=== PATIENT | female | born 1965 | race African-American/Black ===

== ENCOUNTER → 2018-06-10 | Outpatient (CLI) | payer OTHER ==
[2018-01-26 15:00] VITALS: BP 121/53
[~2018-06-10] MED LIST: ACET325T9 PO; ALPR1TAB6 PO; AMIT10TA PO; AMLO5TAB7 PO; APIDRA; ASPI-482 PO; ASPI-630 PO; CALC600T4 PO; CARV25TA2 PO; COCO1000 PO; CRESTOR20 MG PO; CYCL10TA2 PO; DOXY100V4 PO; ESCITALOPRAM OX10 MG PO; FERR325T58 PO; FLEXERIL; FURO-69 PO; FURO80TA72 PO; HYDR-2868 PO; HYDR-2869 PO; INSU100I30 SQ; INSU100V13 SQ; INSU100V31 SQ; INSU100V5 IJ; IRBE300T3 PO; ISOS30TA4 PO; LATA2.5D3 LEFTEYE; LISI-130 PO; LISI-334 PO; LOSA50TA7 PO; MAGN100C3 PO; METF500T16 PO; METO-247 PO; MULT-208 PO; OMEP40CA5 PO; OXYC-327 PO; OXYC5TAB95 PO; PHEN37.53 PO; POTA10TA12 PO; PRAV20TA2 PO; PROAIR HFA8.5 GM IH; SEMA0.25 SQ; SPIR25TA5 PO; TORS20TA2 PO; WARF-31 PO; ZOLP10TA PO
--- NOTE | 2018-06-10 14:26 | KCIC ---
MRI Lumbar Spine without contrast History: Low back pain, degenerative disc disease Technique: Multiplanar, multi sequential noncontrast MR imaging was performed of the lumbar spine. Contrast: None Comparison: None available Findings: Most inferior fully formed intervertebral disc space is considered L5-S1 for this report. There is moderate to severe degenerative disc disease at L5-S1, mild degenerative endplate change. There is mild disc desiccation L4-5. Lumbar vertebral body stature and AP alignment are maintained. Conus terminates at L1. There is very mild lumbar levoscoliosis. L3-L4: Spinal canal and neural foramina are adequate. There is minimal buckling of the ligamentum flavum and prominence of posterior epidural fat. L4-L5: There is mild to moderate facet degenerative change, prominence of posterior epidural fat, mild buckling of the ligamentum flavum. Neural foramina and spinal canal are adequate. L5-S1: There is disc osteophyte complex, superimposed bulge/protrusion more eccentric to left lateral recess. There is contact of the descending left S1 nerve root in the left lateral recess, mild to moderate narrowing of the far left lateral recess. There is minimal facet degenerative change. There is mild narrowing of the left neural foramen, right neural foramen adequate Impression: 1. There is moderate to severe degenerative disc disease at what is considered L5-S1. There is [id number] narrowing of the far left lateral recess at L5-S1, bulge/protrusion contacting the descending left S1 nerve root at this level. There is minimal narrowing of the left L5-S1 neural foramen. Electronically signed by: Fareed Moreno MD (06/10/2018 2:23 PM) [facility]
== END | disposition home or self-care (01) ==
LOC: KCIC MRI 12:29
PROVIDERS: ATTEND Physical Medicine & Rehabilitation
DX: M51.37 Other intervertebral disc degeneration, lumbosacral region (principal); M48.07 Spinal stenosis, lumbosacral region; M25.78 Osteophyte, vertebrae
CPT/HCPCS: 72148

== ENCOUNTER → 2018-06-26 | Outpatient (CLI) | payer OTHER ==
[2018-01-26 15:00] VITALS: BP 121/53
[~2018-06-26] MED LIST changes: +CRESTOR40 MG PO; +ERGO500027 PO
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
== END | disposition home or self-care (01) ==
LOC: PNCL 09:29
PROVIDERS: ATTEND Anesthesiology
DX: M54.5 Low back pain (principal); M19.90 Unspecified osteoarthritis, unspecified site; I10 Essential (primary) hypertension; E11.9 Type 2 diabetes mellitus without complications; E66.9 Obesity, unspecified
CPT/HCPCS: 99214

== ENCOUNTER → 2018-07-12 | Outpatient (CLI) | payer OTHER ==
[2018-01-26 15:00] VITALS: BP 121/53
[~2018-07-12] MED LIST changes: +IOHEXOL 180 MG/ML 10 ML VIAL. ONE; -OXYC-327 PO; +OXYC1TAB19 PO; +OXYC5TAB4 PO; -OXYC5TAB95 PO; +methylPREDNISolone ACETATE 40 MG/ML VIAL. ONE; +methylPREDNISolone ACETATE 80 MG/ML VIAL. ONE
--- NOTE | 2018-07-12 21:31 | PAIN ---
DATE OF SERVICE: 07/12/2018 PROGRESS NOTE FOR PAIN CLINIC DIAGNOSIS: Lumbar radiculopathy with lumbar degenerative disk disease. HISTORY OF PRESENT ILLNESS: The patient is a 52-year-old female who returns for followup status post initial evaluation and preauthorization for lumbar epidural steroid injection. She had obtained this and would like to proceed today. The patient reports still some pain in the low back, left lower extremity as it was previously, posterior gluteus, posterior thigh, posterior calf into the foot with numbness, tingling, burning, tight shooting pain, aching, sharp, radiating, becoming more constant, getting worse at night now with severe burning and spasticity in the legs. It does awaken her from sleep several times at night, the patient reports about every 4 hours or so. The patient reports no new motor or sensory deficits and no new bowel or bladder incontinence. Rates her pain as a 9 on a scale of 10 at its worst, 7 on average and 7 at its least and is a 7 today. PHYSICAL EXAMINATION: VITAL SIGNS: The patient's blood pressure is 209/99, pulse 76, respirations 18 and temperature 97.6 degrees Fahrenheit. Height is 5 feet 7 inches and weighs 259 pounds. GENERAL: The patient is awake, alert, oriented, appropriate and very pleasant demeanor. HEENT: Shows normocephalic and atraumatic. Extraocular movements intact and symmetrical. Oral cavity: Mucous membranes moist and pink. Dentition intact. NECK: Shows anterior throat supple without palpable lymphadenopathy noted. Swallow reflex symmetrical. CHEST: Shows normal with inspection. Breath sounds clear to auscultation bilaterally. HEART: Shows S1 and S2 clear. No murmurs auscultated. ABDOMEN: Soft, obese, nontender and nondistended. No palpable organomegaly is noted. No rebound or guarding demonstrated. BACK: Shows spine grossly in the midline. Slight exaggeration of the thoracic kyphosis and some minor flattening of the lumbar lordotic curvature. Lumbar paraspinous muscle shows symmetrical on inspection, with palpation shows some moderate tenderness diffusely in the low lumbar distribution, more on the left than the right but without significant trigger points or radiation. The patient has good rotational motion of the lumbar spine, both laterally as well as extension and flexion without difficulty. EXTREMITIES: Lower extremities show deep tendon reflexes 1+ in the patellar and tendo-calcaneus tendons. Motor exam is approximately 4 on a scale of 5 with left dorsiflexion and extension, 5/5 on the right. Peripheral pulses are 1+ posterior tibia. No peripheral edema is noted bilaterally. Options were discussed with the patient. The patient's old chart was reviewed as well as her current medication regimen updated. Current review of systems updated today as well and we will proceed with a lumbar epidural steroid injection today with fluoroscopic guidance. Risks were discussed including but not limited to bleeding, infection, possibility of epidural hematoma and subsequent neurologic compromise, dural puncture, headaches, spinal cord and/or nerve damage, side effects of steroid medication and poor results regarding pain control. The patient understands and wished to proceed. The patient will return to the clinic in approximately 2 weeks for followup, was counseled as to return appointment, activity level and side effects sternal table aware of. DIAGNOSIS: Lumbar radiculopathy with lumbar degenerative disk disease. PROCEDURE: Lumbar epidural steroid injection, translaminar approach at L5-S1 level using C-arm fluoroscopic guidance under sterile prep and drape using local anesthetic. MEDICATION INJECTED: A total of 120 mg Depo-Medrol plus 10 mL of preservative-free normal saline and 2 mL of Isovue for contrast. CONDITION AT DISCHARGE: Stable. The patient tolerated the procedure well and had no complications. CATHY LANDIN MD DR: LEE/yvette JOB#: [id number] / [id number]
== END | disposition home or self-care (01) ==
LOC: PNCL 09:29
PROVIDERS: ATTEND Anesthesiology
DX: M51.16 Intervertebral disc disorders with radiculopathy, lumbar region (principal); Z88.0 Allergy status to penicillin; Z88.2 Allergy status to sulfonamides; Z88.1 Allergy status to other antibiotic agents; Z88.6 Allergy status to analgesic agent; Z91.040 Latex allergy status
CPT/HCPCS: 62323; J1030; J1040; Q9965

== ENCOUNTER → 2018-07-30 | Outpatient (CLI) | payer OTHER ==
[2018-01-26 15:00] VITALS: BP 121/53
[~2018-07-30] MED LIST changes: +ALBU2.5V8 IH; -IOHEXOL 180 MG/ML 10 ML VIAL. ONE; +LOSA-73 PO; -LOSA50TA7 PO; -PROAIR HFA8.5 GM IH; -methylPREDNISolone ACETATE 40 MG/ML VIAL. ONE; -methylPREDNISolone ACETATE 80 MG/ML VIAL. ONE
--- NOTE | 2018-07-30 09:41 | PAIN ---
DATE OF SERVICE: 07/30/2018 DIAGNOSIS: Lumbar radiculopathy with lumbar degenerative disk disease. HISTORY OF PRESENT ILLNESS: The patient is a 52-year-old female who returns for followup status post lumbar epidural steroid injection x 1. The patient reports about 75% improvement for the first week and about 60% improvement in the next week and overall it is about 50%. The pain is returning now, it helped significantly, especially the first week or so. The second week was doing better as well, now is about 50% overall. The patient reports it is better with walking, standing for greater time periods, walking greater distances, doing work activities, household activities, travel with much greater ease and comfort, sleeping better at night. The patient reports it is starting to wake her up at night again, but the pain is only moderate the patient reports in the low back radiating to posterior gluteus on the left, left thigh posteriorly, posterior calf on the left and to the left ankle and foot. The patient reports it is aching, dull, tight, burning, becoming more noticeable, more constant as time goes on. The patient reports no new motor or sensory deficits, no new bowel or bladder incontinence or other complaints. PHYSICAL EXAMINATION: VITAL SIGNS: The patient's blood pressure is 118/60, pulse 84, respirations 18, temperature is 98.2 degrees Fahrenheit, height is 5 feet 7 inches, weighs 246 pounds. GENERAL: The patient is awake, alert, oriented, appropriate, very pleasant demeanor. HEENT: Head is normocephalic, atraumatic. Extraocular movements are intact and symmetrical. Oral cavity: Mucous membranes moist and pink. Dentition is intact. NECK: Shows anterior throat supple without palpable lymphadenopathy noted. Swallow reflex is symmetrical. CHEST: Shows normal with inspection. Breath sounds clear to auscultation bilaterally. HEART: Shows S1, S2 clear. No murmurs auscultated. ABDOMEN: Soft, nontender, nondistended. No palpable organomegaly is noted. No rebound or guarding demonstrated. BACK: Shows spine grossly in the midline. Normal-appearing thoracic kyphosis and lumbar lordotic curvature. EXTREMITIES: The patient's lower extremities show deep tendon reflexes at 1+ in the patella and tendo calcaneus tendons. Motor exam is approximately 4 on a scale of 5 on the left and 5/5 on the right. Peripheral pulses are 1+ posterior tibia. No peripheral edema is noted bilaterally. ASSESSMENT AND PLAN: Options were discussed with the patient. The patient's old chart was reviewed as was her current medication regimen updated. Current review of systems updated today as well. We will preauthorize the patient for a second lumbar epidural steroid injection today with return of the pain after significant improvement for the first few weeks, now with returning lumbar radiculopathy in the L5-S1 dermatomal distribution on the left side. The patient was encouraged to maintain her stretching and strengthening exercises. She is exercising daily and stretching daily as well as walking daily, will maintain this as well. Also, the patient was having some leg cramps, she was starting also on magnesium. We discussed continuing this as well. The patient will return to clinic in approximately 2 weeks with plan on second lumbar epidural steroid injection at that time. CATHY LANDIN MD DR: LEE/yvette JOB#: [id number] / [id number]
== END | disposition home or self-care (01) ==
LOC: PNCL 07:43
PROVIDERS: ATTEND Anesthesiology
DX: M51.16 Intervertebral disc disorders with radiculopathy, lumbar region (principal)
CPT/HCPCS: G0463

== ENCOUNTER → 2018-08-16 | Outpatient (CLI) | payer OTHER ==
[2018-01-26 15:00] VITALS: BP 121/53
[~2018-08-16] MED LIST changes: +IOHEXOL 180 MG/ML 10 ML VIAL. ONE; +methylPREDNISolone ACETATE 40 MG/ML VIAL. ONE; +methylPREDNISolone ACETATE 80 MG/ML VIAL. ONE
--- NOTE | 2018-08-16 10:46 | PAIN ---
DATE OF SERVICE: 08/16/2018 DIAGNOSES: Lumbar radiculopathy with lumbar degenerative disk disease. HISTORY OF PRESENT ILLNESS: The patient is a 52-year-old female who returns for followup status post lumbar epidural steroid injection x 1. Again, doing very well with about 70% improvement after the last injection, still about 50% improvement overall. The patient reports pain is now more noticeable in the right leg, is still in the left leg like it was. The patient reports it is a 7 on a scale of 10 at its worst, 5 on average, 4 at its least and is a 5 today. The patient reports it is aching, sharp, tight, tingling, burning, becoming more constant, more noticeable with walking, standing, better with sitting or lying down, but has been waking her from sleep about every 4 hours. The patient reports no new motor or sensory deficits, no new bowel or bladder incontinence or other complaints. PHYSICAL EXAMINATION: VITAL SIGNS: Today, the patient's blood pressure 133/72, pulse 92, respirations 18, temperature 98.2 degrees Fahrenheit. Height is 5 feet 8 inches, weight is 252 pounds. GENERAL: The patient is awake, alert, oriented and appropriate, very pleasant demeanor. HEENT: Head shows normocephalic, atraumatic. Extraocular movements intact and symmetrical. Oral cavity, mucous membranes moist and pink. Dentition is intact. NECK: Shows anterior throat supple without palpable lymphadenopathy noted. Swallow reflex is symmetrical. CHEST: Shows normal with inspection. Breath sounds are clear to auscultation bilaterally. HEART: Shows S1, S2 clear. No murmurs auscultated. ABDOMEN: Soft, nontender, nondistended. No palpable organomegaly is noted. No rebound or guarding demonstrated. BACK: Shows spine grossly in the midline. Normal appearing thoracic kyphosis and minor flattening of lumbar lordotic curvature. Lumbar paraspinous muscle shows symmetrical on inspection, with palpation shows some moderate tenderness diffusely in the low lumbar distribution only, more on the right than the left, but present bilaterally with some moderate tenderness. The patient has good rotational motion both laterally as well as extension and flexion without difficulty. EXTREMITIES: Lower extremities show deep tendon reflexes 1+ in the patellar and tendo-calcaneus tendons. Motor exam is approximately 4 on a scale 5 on the left and 5/5 on the right with dorsiflexion, extension, quadriceps and hamstring flexion. Peripheral pulses are 1+ posterior tibial. No peripheral edema is noted bilaterally. Options were discussed with the patient. The patient's old chart was reviewed as her current medication regimen updated. Current review of systems updated today as well. We will proceed with a second in the series of lumbar epidural steroid injection today with fluoroscopic guidance. Risks were again discussed including, but not limited to bleeding, infection, possibility of epidural hematoma, subsequent neurologic compromise, dural puncture, headaches, spinal cord and/or nerve damage, side effects of steroid medication and poor results regarding pain control. The patient understands and wished to proceed. The patient to return to clinic in approximately 2 weeks for followup, was counseled on return appointment, activity level and side effects to be aware of. DIAGNOSES: Lumbar radiculopathy with lumbar degenerative disk disease. PROCEDURE: Lumbar epidural steroid injection, translaminar approach at L5-S1 level using C-arm fluoroscopic guidance under sterile prep and drape using local anesthetic. MEDICATION INJECTED: A total of 120 mg Depo-Medrol, plus 10 mL of preservative-free normal saline and 2 mL of Isovue for contrast. CONDITION AT DISCHARGE: Stable. The patient tolerated the procedure well, had no complications. CATHY LANDIN MD DR: LEE/nts JOB#: [id number] / [id number]
== END | disposition home or self-care (01) ==
LOC: PNCL 07:45
PROVIDERS: ATTEND Anesthesiology
DX: M51.16 Intervertebral disc disorders with radiculopathy, lumbar region (principal); Z88.0 Allergy status to penicillin; Z88.2 Allergy status to sulfonamides; Z88.1 Allergy status to other antibiotic agents; Z88.6 Allergy status to analgesic agent; Z88.8 Allergy status to other drugs, medicaments and biological substances; Z91.040 Latex allergy status
CPT/HCPCS: 62323; J1030; J1040; Q9965

== ENCOUNTER → 2018-08-30 | Outpatient (CLI) | payer OTHER ==
[2018-01-26 15:00] VITALS: BP 121/53
--- NOTE | 2018-08-30 09:29 | PAIN ---
DATE OF SERVICE: 08/30/2018 PROGRESS NOTE FOR PAIN CLINIC DIAGNOSIS: Lumbar radiculopathy with lumbar degenerative disk disease. HISTORY OF PRESENT ILLNESS: The patient is a 52-year-old female who returns for followup status post lumbar epidural steroid injection x 2. The patient reports she did very well, had zero pain after the last injection until she backed into a fire pit at her home and fell on her back and into her right side. The patient reports before that she was doing very well, was mopping the floors with greater ease and comfort, was having no pain whatsoever, sleeping well at night, increasing her activity, walking, standing, doing work activities and home activities. Now, the pain is returning. She has awakened her from sleep about every 6 hours in the low back, into the left lower extremity with some tingling and numbness in the foot, stabbing at times in the back, aching, sharp, dull pain most times in the low back as well as in the left leg, radiating posterior gluteus, posterior thigh, posterior calf and tingling in the foot. The patient reports it is a 7 on a scale of 10 at its worse, 5 on average and 3 at its least and is a 5 today. The patient reports no other injuries and no new motor or sensory deficits or other complaints. PHYSICAL EXAMINATION: VITAL SIGNS: The patient's blood pressure is 140/73, pulse 88, respirations 18 and temperature 98.2 degrees Fahrenheit. Height 5 feet 8 inches and weight is 251 pounds. GENERAL: The patient is awake, alert, oriented, appropriate and very pleasant demeanor. HEENT: Head shows normocephalic and atraumatic. Extraocular movements are intact and symmetrical. Oral cavity: Mucous membranes moist and pink. Dentition is intact. NECK: Shows anterior throat supple without palpable lymphadenopathy noted. Swallow reflex symmetrical. CHEST: Shows normal with inspection. Breath sounds clear to auscultate bilaterally. HEART: Shows S1 and S2 clear. No murmurs auscultated. ABDOMEN: Soft, nontender and nondistended. No palpable organomegaly is noted. No rebound or guarding demonstrated. BACK: Shows spine grossly in the midline. Normal appearing thoracic kyphosis and lumbar lordotic curvature. Lumbar paraspinous musculature shows symmetrical on inspection, with palpation shows some moderate tenderness diffusely bilaterally but only diffusely without radiation. EXTREMITIES: The patient's lower extremities show deep tendon reflexes at 1+ in the patellar and tendo-calcaneus tendons. Motor exam is approximately 4 on a scale of 5 with left dorsiflexion and extension, 5/5 on the right. Peripheral pulses are 1+ posterior tibial. No peripheral edema is noted bilaterally. Options were discussed with the patient. The patient's old chart was reviewed as well as her current medication regimen updated. Current review of systems updated today as well. We will proceed with a third in the series of lumbar epidural steroid injection today with fluoroscopic guidance. Risks were again discussed including, but not limited to bleeding, infection, possibility of epidural hematoma and subsequent neurological compromise, dural puncture, headaches, spinal cord and/or nerve damage, side effects of steroid medication and poor results regarding pain control. The patient understands and wished to proceed. The patient will return to the clinic in approximately 2 weeks for followup, was counseled as to return appointment, activity level and side effects to be aware of. DIAGNOSIS: Lumbar radiculopathy with lumbar degenerative disk disease. PROCEDURE: Lumbar epidural steroid injection, translaminar approach, L5-S1 level using C-arm fluoroscopic guidance under sterile prep and drape using local anesthetic. MEDICATION INJECTED: A total of 120 mg Depo-Medrol plus 10 mL of preservative-free normal saline and 2 mL of Isovue for contrast. CONDITION AT DISCHARGE: Stable. The patient tolerated the procedure well and had no complications. CATHY LANDIN MD DR: LEE/yvette JOB#: [id number] / [id number]
== END | disposition home or self-care (01) ==
LOC: PNCL 08:14
PROVIDERS: ATTEND Anesthesiology
DX: M51.16 Intervertebral disc disorders with radiculopathy, lumbar region (principal); Z98.890 Other specified postprocedural states; Z88.0 Allergy status to penicillin; Z88.2 Allergy status to sulfonamides; Z88.8 Allergy status to other drugs, medicaments and biological substances; Z91.040 Latex allergy status; Z88.1 Allergy status to other antibiotic agents
CPT/HCPCS: 62323; J1030; J1040; Q9965

== ENCOUNTER → 2018-11-07 | Outpatient (CLI) | payer OTHER ==
[2018-01-26 15:00] VITALS: BP 121/53
[~2018-11-07] MED LIST changes: +AMLO5TAB10 PO; -AMLO5TAB7 PO; -IOHEXOL 180 MG/ML 10 ML VIAL. ONE; +IOHEXOL 240 MG/ML 50ML VIAL. PO ONE; +IOHEXOL 300 MG/ML 100ML VIAL. IV ONE; -methylPREDNISolone ACETATE 40 MG/ML VIAL. ONE; -methylPREDNISolone ACETATE 80 MG/ML VIAL. ONE
--- NOTE | 2018-11-07 15:49 | RAD ---
CT of the chest, abdomen and pelvis with contrast, 11/07/2018: HISTORY: Breast cancer Multidetector CT imaging was performed following oral and IV administration of contrast. Comparison is made to a study from 10/26/2015. The thoracic aorta is of normal caliber. No mediastinal or hilar adenopathy is seen. There is a moderate sized hiatal hernia. The heart is at the upper limits of normal in size. A trace amount of pericardial fluid is present. No axillary adenopathy is evident. An 8 mm slightly irregular nodule is noted in the right pulmonary apex. No definite calcification is seen in this nodule. There is mild linear atelectasis and/or scarring in the left lower chest. There is no evidence of pleural fluid. There is a mild upper thoracic scoliosis there are mild scattered degenerative changes in the spine. There is no evidence of a hepatic mass. The gallbladder is unremarkable. No pancreatic abnormality is seen. The spleen is of normal size. Mildly heterogeneous splenic enhancement is probably on a technical basis. No renal or adrenal abnormality is detected. The abdominal aorta is unremarkable. No abdominal or pelvic adenopathy is seen. The uterus is surgically absent. Scattered colonic diverticula are present. No paracolonic inflammatory process is seen. The bowel loops are not dilated. No free fluid or free air is evident in the abdomen or pelvis. A small upper abdominal midline fascial defect seen on the previous study is no longer evident and has presumably been surgically repaired. There is moderate fascial thickening near the midline in the supraumbilical region. No ara ventral hernia is evident. IMPRESSION: 1. Colonic diverticulosis. 2. Moderate-sized hiatal hernia. 3. Small right apical pulmonary nodule. While this may be a scar, a primary or secondary neoplasm cannot be excluded. It is of borderline size for PET/CT evaluation. CT follow-up is suggested. PQRS Compliance Statement: One or more of the following individualized dose reduction techniques were utilized for this examination: 1. Automated exposure control 2. Adjustment of the mA and/or kV according to patient size 3. Use of iterative reconstruction technique Electronically signed by: Girish Rodriguez MD (11/07/2018 3:46 PM) [facility]
== END | disposition home or self-care (01) ==
LOC: CT 14:26
PROVIDERS: ATTEND Internal Medicine Hematology & Oncology
DX: K57.30 Diverticulosis of large intestine without perforation or abscess without bleeding (principal); K44.9 Diaphragmatic hernia without obstruction or gangrene; R91.1 Solitary pulmonary nodule; D64.9 Anemia, unspecified; Z85.3 Personal history of malignant neoplasm of breast
CPT/HCPCS: 71260; 74177; Q9966; Q9967

== ENCOUNTER 2019-03-09 01:29 | Inpatient (IN) | payer OTHER ==
[2019-03-09] VITALS (8 sets, daily range): BP systolic 128–176; BP diastolic 58–86
[~2019-03-09] VITALS: Ht 170.2 cm; Wt 112.5 kg
[~2019-03-09 01:29] MED LIST changes: -IOHEXOL 240 MG/ML 50ML VIAL. PO ONE; -IOHEXOL 300 MG/ML 100ML VIAL. IV ONE
--- NOTE | 2019-03-09 02:04 | PHYS DOC ---
Past Medical History Past Medical History: Diabetes-Type II, High Cholesterol, Hypertension Additional Past Medical Histor: MRSA from spider bites&"Caused heart trouble." Past Surgical History: Appendectomy, Hysterectomy, Tonsillectomy, Other Additional Past Surgical Histo: Excision of spider bite x2 one to L)lower back&one to L)post thigh. Alcohol Use: None Drug Use: None Adult General Chief Complaint Chief Complaint: BLOODY STOOL [facility] HPI Patient is a 53-year-old female who presents with approximately 3-4 day history of diarrhea and then last night around 7:30 PM, she had a bloody stool that was bright red blood mixed with melanotic stool. Patient states that since that time she has had several other bloody stools, for a total of 7 episodes at home and then another episode here in the emergency room. Patient estimates that she is passing between 1-1/2-2 cups of stool with each bowel movement and she states that they appear to be primarily blood. She states that she started to feel very lightheaded at home and that was why she decided to come into the emergency room. Patient does indicate that she sees a [facility] chemist/oncologist and is undergoing radiation therapy for breast cancer. She denies any chest pain or shortness of breath. She does admit to abdominal cramping prior to the episodes of diarrhea.[] Review of Systems Review of Systems Constitutional: Denies fever or chills [] Respiratory: Denies cough or shortness of breath [] Cardiovascular: No additional information not addressed in HPI [] GI: Complains of abdominal cramping with bloody diarrhea [] Integument: Denies rash or skin lesions [] Neurologic: Denies headache, focal weakness or sensory changes [] All other systems were reviewed and found to be within normal limits, except as documented in this note. Current Medications Current Medications Current Medications Medications (Trade) Dose Ordered Sig/[facility] Start Time Stop Time Status Last Admin Dose Admin Acetaminophen (Tylenol) 650 mg PRN Q4HRS PRN 03/09/19 03:45 03/10/19 03:44 UNV Morphine Sulfate (Morphine Sulfate) 2 mg PRN Q2HR PRN 03/09/19 03:45 03/10/19 03:44 UNV Ondansetron HCl (Zofran) 4 mg PRN Q8HRS PRN 03/09/19 03:45 03/10/19 03:44 UNV Pantoprazole Sodium (PROTONIX VIAL for IV PUSH) 40 mg 1X ONCE 03/09/19 02:15 03/09/19 02:18 DC Sodium Chloride 1,000 ml @ 150 mls/hr Q6H40M 03/09/19 03:35 03/10/19 03:34 UNV Allergies Allergies Allergies Coded Allergies Type Severity Reaction Last Updated Verified Penicillins Allergy Severe Swelling/anaphylaxis 12/22/15 Yes Sulfa (Sulfonamide Antibiotics) Allergy Severe Anaphylaxis 12/22/15 Yes latex Allergy Severe Swelling 12/22/15 Yes ciprofloxacin Allergy Intermediate Swelling 01/24/18 Yes meloxicam Allergy Intermediate Itching 06/26/18 Yes warfarin Allergy Intermediate Rash 06/26/18 Yes pregabalin Adverse Reaction Intermediate bruising 06/26/18 Yes Physical Exam Physical Exam Constitutional: Well developed, well nourished, no acute distress, non-toxic appearance. [] HENT: Normocephalic, atraumatic, bilateral external ears normal, oropharynx moist, no oral exudates, nose normal. [] Eyes: PERRLA, EOMI, conjunctiva normal, no discharge. [] Neck: Normal range of motion, no tenderness, supple. [] Cardiovascular: Regular rate and rhythm[] Lungs & Thorax: Bilateral breath sounds clear to auscultation [] Abdomen: Bowel sounds normal, soft, no tenderness. [] Skin: Warm, dry, no erythema, no rash. [] Extremities: No tenderness, no cyanosis, no clubbing, ROM intact. [] Neurologic: Alert and oriented X 3, no focal deficits noted. [] Current Patient Data Vital Signs Vital Signs Date Time Temp Pulse Resp B/P (MAP) Pulse Ox O2 Delivery O2 Flow Rate FiO2 03/09/19 01:43 97.9 79 18 104/56 (72) 99 Room Air 97.9 Lab Values Laboratory Tests Test 03/08/19 12:20 03/09/19 02:15 Stool Occult Blood Positive (NEG) White Blood Count 5.5 x10^3/uL (4.0-11.0) Red Blood Count 2.83 x10^6/uL (3.50-5.40) L Hemoglobin 8.3 g/dL (12.0-15.5) L Hematocrit 24.5 % (36.0-47.0) L Mean Corpuscular Volume 87 fL (79-100) Mean Corpuscular Hemoglobin 30 pg (25-35) Mean Corpuscular Hemoglobin Concent 34 g/dL (31-37) Red Cell Distribution Width 15.5 % (11.5-14.5) H Platelet Count 178 x10^3/uL (140-400) Neutrophils (%) (Auto) 70 % (31-73) Lymphocytes (%) (Auto) 21 % (24-48) L Monocytes (%) (Auto) 6 % (0-9) Eosinophils (%) (Auto) 3 % (0-3) Basophils (%) (Auto) 1 % (0-3) Neutrophils # (Auto) 3.9 x10^3/uL (1.8-7.7) Lymphocytes # (Auto) 1.2 x10^3/uL (1.0-4.8) Monocytes # (Auto) 0.3 x10^3/uL (0.0-1.1) Eosinophils # (Auto) 0.1 x10^3/uL (0.0-0.7) Basophils # (Auto) 0.0 x10^3/uL (0.0-0.2) Prothrombin Time 13.8 SEC (11.7-14.0) Prothrombin Time INR 1.1 (0.8-1.1) PTT 33 SEC (24-38) Sodium Level 138 mmol/L (136-145) Potassium Level 4.7 mmol/L (3.5-5.1) Chloride Level 101 mmol/L (98-107) Carbon Dioxide Level 27 mmol/L (21-32) Anion Gap 10 (6-14) Blood Urea Nitrogen 43 mg/dL (7-20) H Creatinine 1.6 mg/dL (0.6-1.0) H Estimated GFR (Cockcroft-Gault) 40.5 BUN/Creatinine Ratio 27 (6-20) H Glucose Level 112 mg/dL (70-99) H Calcium Level 11.0 mg/dL (8.5-10.1) H Total Bilirubin 0.4 mg/dL (0.2-1.0) Aspartate Amino Transferase (AST) 17 U/L (15-37) Alanine Aminotransferase (ALT) 29 U/L (14-59) Alkaline Phosphatase 107 U/L (46-116) Total Protein 6.3 g/dL (6.4-8.2) L Albumin 3.3 g/dL (3.4-5.0) L Albumin/Globulin Ratio 1.1 (1.0-1.7) Laboratory Tests 03/09/19 02:15 Laboratory Tests 03/09/19 02:15 EKG EKG [] Radiology/Procedures Radiology/Procedures [] Course & Med Decision Making Course & Med Decision Making Pertinent Labs and Imaging studies reviewed. (See chart for details) A sugar moved to room upon arrival was evaluated by your medical staff after which an IV was established and blood work was drawn. Patient's workup is returned and patient's case has been discussed with on-call GI. GI specialist has requested a CT of the abdomen and pelvis with oral contrast. Patient will be admitted under hospitalist service for further evaluation and management with GI consulting. Dragon Disclaimer Dragon Disclaimer This electronic medical record was generated, in whole or in part, using a voice recognition dictation system. Departure Departure Impression: Primary Impression: Lower GI bleed Disposition: ADMITTED INPATIENT Admitting Physician: SHELLIE Condition: IMPROVED Referrals: [facility] (PCP) YUE RIVERA Jr. DO Mar 09, 2019 02:04
[2019-03-09] MEDS ORDERED: PANTOPRAZOLE IV PUSH 40 MG VIAL. IVP ONE (02:15)
[2019-03-09] MEDS ORDERED: IV NORMAL SALINE 500ML BAG 500 ML IV SCH (02:15)
[2019-03-09 02:31] LABS: BASO % 1 % (0-3); EOS # 0.1 x10^3/uL (0.0-0.7); EOS % 3 % (0-3); HEMATOCRIT 24.5 % (36.0-47.0); HEMOGLOBIN 8.3 g/dL (12.0-15.5); LYMPH # 1.2 x10^3/uL (1.0-4.8); LYMPH % 21 % (24-48); MEAN CORPUSCULAR HEMOGLOBIN 30 pg (25-35); MEAN CORPUSCULAR HGB CONC 34 g/dL (31-37); MEAN CORPUSCULAR VOLUME 87 fL (79-100); MONO # 0.3 x10^3/uL (0.0-1.1); MONO % 6 % (0-9); NEUT # 3.9 x10^3/uL (1.8-7.7); NEUT % 70 % (31-73); PLATELET COUNT 178 x10^3/uL (140-400); RED BLOOD COUNT 2.83 x10^6/uL (3.50-5.40); RED CELL DISTRIBUTION WIDTH 15.5 % (11.5-14.5); WHITE BLOOD COUNT 5.5 x10^3/uL (4.0-11.0)
[2019-03-09 02:42] LABS: FECAL OB PT POSITIVE (NEG)
[2019-03-09 02:44] LABS: PROTHROMBIN TIME PATIENT 13.8 SEC (11.7-14.0)
[2019-03-09 02:52] LABS: CREATININE 1.6 mg/dL (0.6-1.0); GFR 40.5; POTASSIUM 4.7 mmol/L (3.5-5.1)
[2019-03-09 02:57] LABS: ALBUMIN 3.3 g/dL (3.4-5.0); ALBUMIN/GLOBULIN RATIO 1.1 (1.0-1.7); TOTAL BILIRUBIN 0.4 mg/dL (0.2-1.0); TOTAL PROTEIN 6.3 g/dL (6.4-8.2)
[2019-03-09] MEDS ORDERED: ONDANSETRON PF 4 MG/2 ML VIAL. IV PRN (03:45)
[2019-03-09] MEDS ORDERED: MORPHINE SULFATE 2 MG/ML VIAL. IV PRN (03:45)
[2019-03-09] MEDS ORDERED: ACETAMINOPHEN 325 MG TABLET. PO PRN (03:45)
[2019-03-09] MEDS ORDERED: IOHEXOL 240 MG/ML 50ML VIAL. PO ONE (04:15)
[2019-03-09] MEDS ORDERED: CONTRAST GIVEN. MC PRN (04:15)
--- NOTE | 2019-03-09 05:57 | RAD ---
EXAM: CT Abdomen and Pelvis without IV contrast CLINICAL HISTORY: Lower GI bleed. COMPARISON: 11/07/2018 TECHNIQUE: Helical CT of the abdomen and pelvis without intravenous contrast. Oral contrast was administered. Axial, coronal and sagittal reformatted images were generated. PQRS compliance statement - One or more of the following individualized dose reduction techniques were utilized for this study: 1. Automated exposure control 2. Adjustment of the mA and/or kV according to patient size 3. Use of iterative reconstruction technique FINDINGS: Lack of intravenous contrast limits evaluation of solid organs, vasculature, and lymph nodes. Lower chest: Linear opacities in the lingula and middle lobe likely scarring/atelectasis. Abdomen and Pelvis: No focal liver lesion. Liver is borderline enlarged measuring 18.3 cm in length. High density material in the periventricular gallbladder likely sludge. Spleen is unremarkable. Adrenal glands are normal. No renal tract calculus. No hydronephrosis. No hydroureter. Bladder is unremarkable. Small hiatal hernia. Oral contrast material seen to the level of the middistal small bowel. Colonic diverticula are seen. No evidence for acute diverticulitis. No retroperitoneal hematoma or mass. No abdominal pelvic lymphadenopathy. Bones: Degenerative changes of the spine are seen. Mild leftward curvature of the lumbar spine IMPRESSION: 1. Evaluation for GI bleeding limited given the presence oral contrast and lack of IV contrast. Within these constraints no obvious GI bleed is identified. 2. Colonic diverticulosis without evidence for acute diverticulitis. 3. No evidence for bowel obstruction. 4. Borderline hepatomegaly 5. Small hiatal hernia.. Electronically signed by: Martin Rojas MD (03/09/2019 5:54 AM) [facility]
[2019-03-09] MEDS: IV NORMAL SALINE 1000ML BAG 1,000 ML IV SCH ×3 (06:13→18:04)
--- NOTE | 2019-03-09 08:28 | PDOC1 ---
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 Patient states that since that time she has had several other bloody stools, for a total of 7 episodes at home and then another episode here in the emergency room. Patient estimates that she is passing between 1-1/2-2 cups of stool with each bowel movement and she states that they appear to be primarily blood. She states that she started to feel very lightheaded at home and that was why she decided to come into the emergency room. She is actively undergoing radiation therapy for breast cancer. She denies any chest pain or shortness of breath, fecal occult positive in ED. Hb 8.3, Cr 1.6, BUN 43, Calcium 11. CT abdomen/pelvis non-contrast revealed no obvious masses or bleeding, did show diverticulosis, fatty liver. Admitted for further care She received IV iron in December when her iron was low after she passed out at work. She has received 1 unit of PRBCs upon admission with stable Hb. 5 additional bloody BM after admission. 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[employer] and does not take NSAIDs Past Medical History Cardiovascular: HTN, Hyperlipidemia, Other Pulmonary: No pertinent hx GI: GERD Musculoskeletal: low back pain Infectious disease: Other Endocrine: Diabetes Past Surgical History Past Surgical History: Appendectomy, Tonsillectomy, Hysterectomy Family History Family History: Diabetes, High Cholestrol, Hypertension Family History: Parent Social History Smoke: No ALCOHOL: none Drugs: None Current Problem List Problem List Problems Medical Problems: (1) Lower GI bleed Status: Acute Current Medications Current Medications Current Medications Sodium Chloride 500 ml @ 500 mls/hr Q1H IV Last administered on 03/09/19at 04:33; Start 03/09/19 at 02:15; Stop 03/09/19 at 04:33; Status DC Pantoprazole Sodium (PROTONIX VIAL for IV PUSH) 40 mg 1X ONCE IVP Last administered on 03/09/19at 04:32; Start 03/09/19 at 02:15; Stop 03/09/19 at 02:18; Status DC Ondansetron HCl (Zofran) 4 mg PRN Q8HRS PRN IV NAUSEA/VOMITING; Start 03/09/19 at 03:45; Stop 03/10/19 at 03:44 Morphine Sulfate (Morphine Sulfate) 2 mg PRN Q2HR PRN IV PAIN; Start 03/09/19 at 03:45; Stop 03/10/19 at 03:44 Sodium Chloride 1,000 ml @ 150 mls/hr Q6H40M IV Last administered on 03/09/19at 06:13; Start 03/09/19 at 03:45; Stop 03/10/19 at 03:44 Acetaminophen (Tylenol) 650 mg PRN Q4HRS PRN PO FEVER; Start 03/09/19 at 03:45; Stop 03/10/19 at 03:44 Iohexol (Omnipaque 240 Mg/ml) 30 ml 1X ONCE PO Last administered on 03/09/19at 04:10; Start 03/09/19 at 04:15; Stop 03/09/19 at 04:16; Status DC Info (CONTRAST GIVEN -- Rx MONITORING) 1 each PRN DAILY PRN MC SEE COMMENTS; Start 03/09/19 at 04:15; Stop 03/11/19 at 04:14 Active Scripts Active Reported Vitamin D2 (Ergocalciferol (Vitamin D2)) 50,000 Unit Capsule 1 Cap PO WEEKLY Crestor (Rosuvastatin Calcium) 40 Mg Tablet 1 Tab PO DAILY Irbesartan 300 Mg Tablet 1 Tab PO HS Humulin R (Insulin Regular, Human) 100 Unit/1 Ml Vial 20 Unit IJ BID92 Ozempic (Semaglutide) 0.25 Mg/0.2 Ml Pen.injctr 0.25 Mg SQ WEEKLY Latanoprost 2.5 Ml Drops 1 Drop LEFTEYE QHS Omeprazole 40 Mg Capsule.dr 1 Cap PO DAILY Cyclobenzaprine Hcl 10 Mg Tablet 1 Tab PO TID Hydralazine Hcl 50 Mg Tablet 1 Tab PO HS Spironolactone 25 Mg Tablet 25 Mg PO HS Isosorbide Mononitrate Er (Isosorbide Mononitrate) 30 Mg Tab.er.24h 30 Mg PO DAILY Torsemide 20 Mg Tablet 20 Mg PO DAILY Carvedilol 25 Mg Tablet 1 Tab PO BID Hydralazine Hcl 25 Mg Tablet 1 Tab PO BID92 Escitalopram Oxalate 10 Mg Tablet 10 Mg PO HS Tresiba Flextouch U-100 (Insulin Degludec) 100 Unit/1 Ml Insuln.pen 30 Unit SQ HS Iron Supplement (Ferrous Sulfate) 325 Mg Tablet 1 Tab PO DAILY Ambien (Zolpidem Tartrate) 10 Mg Tablet 10 Mg PO QHS Proair Hfa Inhaler (Albuterol Sulfate) 8.5 Gm Hfa.aer.ad 2 Puff IH PRN Q4-6HRS Metformin Hcl 500 Mg Tablet 500 Mg PO BIDWMEALS Allergies Allergies: Coded Allergies: Penicillins (Verified Allergy, Severe, Swelling/anaphylaxis, 12/22/15) Patient states she has taken Rocephin before without any issues. Patient discussed with ID service she has tolerated amoxicillin and augmentin in the past. Sulfa (Sulfonamide Antibiotics) (Verified Allergy, Severe, Anaphylaxis, 12/22/15) latex (Verified Allergy, Severe, Swelling, 12/22/15) ciprofloxacin (Verified Allergy, Intermediate, Swelling, 01/24/18) meloxicam (Verified Allergy, Intermediate, Itching, 06/26/18) warfarin (Verified Allergy, Intermediate, Rash, 06/26/18) pregabalin (Verified Adverse Reaction, Intermediate, bruising, 06/26/18) blurred vision ROS General: YES: Fatigue, Malaise; No: Chills, Night Sweats, Appetite, Other PSYCHOLOGICAL ROS: No: Anxiety, Behavioral Disorder, Concentration difficultie, Decreased libido, Depression, Disorientation, Hallucinations, Hostility, Irritablity, Memory difficulties, Mood Swings, Obsessive thoughts, Physical abuse, Sexual abuse, Sleep disturbances, Suicidal ideation, Other Eyes: No Blurry vision, No Decreased vision, No Double vision, No Dry eyes, No Excessive tearing, No Eye Pain, No Itchy Eyes, No Loss of vision, No Photophobia, No Scotomata, No Uses contacts, No Uses glasses, No Other HEENT: No: Heacaches, Visual Changes, Hearing change, Nasal congestion, Nasal discharge, Oral lesions, Sinus pain, Sore Throat, Epistaxis, Sneezing, Snoring, Tinnitus, Vertigo, Vocal changes, Other ALLERGY AND IMMUNOLOGY: No: Hives, Insect Bite Sensitivity, Itchy/Watery Eyes, Nasal Congestion, Post Nasal Drip, Seasonal Allergies, Other Hematological and Lymphatic: No: Bleeding Problems, Blood Clots, Blood Transfusions, Brusing, Night Sweats, Pallor, Swollen Lymph Nodes, Other ENDOCRINE: No: Breast Changes, Galactorrhea, Hair Pattern Changes, Hot Flashes, Malaise/lethargy, Mood Swings, Palpitations, Polydipsia/polyuria, Skin Changes, Temperature Intolerance, Unexpected Weight Changes, Other Breast: No New/Changing Breast Lumps, No Nipple changes, No Nipple discharge, No Other Respiratory: No: Cough, Hemoptysis, Orthopnea, Pleuritic Pain, Shortness of breath, SOB with excertion, Sputum Changes, Stridor, Tachypnea, Wheezing, Other Cardiovascular: No Chest Pain, No Palpitations, No Orthopnea, No Paroxysmal Noc. Dyspnea, No Edema, No Lt Headedness, No Other Gastrointestinal: No Nausea, No Vomiting, No Abdominal Pain, No Diarrhea, No Constipation, No Melena, No Hematochezia, No Other Genitourinary: No Dysuria, No Frequency, No Incontinence, No Hematuria, No Retention, No Discharge, No Urgency, No Pain, No Flank Pain, No Other, No , No , No , No , No , No , No Musculoskeletal: No Gait Disturbance, No Joint Pain, No Joint Stiffness, No Joint Swelling, No Muscle Pain, No Muscular Weakness, No Pain In:, No Swelling In:, No Other Neurological: No Behavorial Changes, No Bowel/Bladder ControlChng, No Confusion, No Dizziness, No Gait Disturbance, No Headaches, No Impaired Coord/balance, No Memory Loss, No Numbness/Tingling, No Seizures, No Speech Problems, No Tremors, No Visual Changes, No Weakness, No Other Skin: No Dry Skin, No Eczema, No Hair Changes, No Lumps, No Mole Changes, No Mottling, No Nail Changes, No Pruritus, No Rash, No Skin Lesion Changes, No Other, No Acne Physical Exam General: Alert, Oriented X3, Cooperative, No acute distress HEENT: Atraumatic, PERRLA, EOMI, Mucous membr. moist/pink Lungs: Clear to auscultation, Normal air movement Heart: S1S2, RRR, no gallops, no murmurs Abdomen: Normal bowel sounds, Soft, No tenderness, No hepatosplenomegaly, No masses Rectal Exam: not examined Extremities: No clubbing, No cyanosis, No edema, Normal pulses, No tenderness/swelling Skin: No rashes, No breakdown, No significant lesion Neuro: Normal gait, Normal speech, Strength at 5/5 X4 ext, Normal tone, Sensation intact, Cranial nerves 3-12 NL, Reflexes 2+ Psych/Mental Status: Mental status NL, Mood NL Vitals Vitals Vital Signs Date Time Temp Pulse Resp B/P (MAP) Pulse Ox O2 Delivery O2 Flow Rate FiO2 03/09/19 06:35 97.7 72 20 168/80 97.7 03/09/19 06:00 95 Room Air Labs Labs Laboratory Tests Test 03/08/19 12:20 03/09/19 02:15 Stool Occult Blood Positive (NEG) White Blood Count 5.5 x10^3/uL (4.0-11.0) Red Blood Count 2.83 x10^6/uL (3.50-5.40) Hemoglobin 8.3 g/dL (12.0-15.5) Hematocrit 24.5 % (36.0-47.0) Mean Corpuscular Volume 87 fL (79-100) Mean Corpuscular Hemoglobin 30 pg (25-35) Mean Corpuscular Hemoglobin Concent 34 g/dL (31-37) Red Cell Distribution Width 15.5 % (11.5-14.5) Platelet Count 178 x10^3/uL (140-400) Neutrophils (%) (Auto) 70 % (31-73) Lymphocytes (%) (Auto) 21 % (24-48) Monocytes (%) (Auto) 6 % (0-9) Eosinophils (%) (Auto) 3 % (0-3) Basophils (%) (Auto) 1 % (0-3) Neutrophils # (Auto) 3.9 x10^3/uL (1.8-7.7) Lymphocytes # (Auto) 1.2 x10^3/uL (1.0-4.8) Monocytes # (Auto) 0.3 x10^3/uL (0.0-1.1) Eosinophils # (Auto) 0.1 x10^3/uL (0.0-0.7) Basophils # (Auto) 0.0 x10^3/uL (0.0-0.2) Prothrombin Time 13.8 SEC (11.7-14.0) Prothromb Time International Ratio 1.1 (0.8-1.1) Activated Partial Thromboplast Time 33 SEC (24-38) Sodium Level 138 mmol/L (136-145) Potassium Level 4.7 mmol/L (3.5-5.1) Chloride Level 101 mmol/L (98-107) Carbon Dioxide Level 27 mmol/L (21-32) Anion Gap 10 (6-14) Blood Urea Nitrogen 43 mg/dL (7-20) Creatinine 1.6 mg/dL (0.6-1.0) Estimated GFR (Cockcroft-Gault) 40.5 BUN/Creatinine Ratio 27 (6-20) Glucose Level 112 mg/dL (70-99) Calcium Level 11.0 mg/dL (8.5-10.1) Total Bilirubin 0.4 mg/dL (0.2-1.0) Aspartate Amino Transf (AST/SGOT) 17 U/L (15-37) Alanine Aminotransferase (ALT/SGPT) 29 U/L (14-59) Alkaline Phosphatase 107 U/L (46-116) Total Protein 6.3 g/dL (6.4-8.2) Albumin 3.3 g/dL (3.4-5.0) Albumin/Globulin Ratio 1.1 (1.0-1.7) Laboratory Tests Test 03/08/19 12:20 03/09/19 02:15 Stool Occult Blood Positive (NEG) White Blood Count 5.5 x10^3/uL (4.0-11.0) Red Blood Count 2.83 x10^6/uL (3.50-5.40) Hemoglobin 8.3 g/dL (12.0-15.5) Hematocrit 24.5 % (36.0-47.0) Mean Corpuscular Volume 87 fL (79-100) Mean Corpuscular Hemoglobin 30 pg (25-35) Mean Corpuscular Hemoglobin Concent 34 g/dL (31-37) Red Cell Distribution Width 15.5 % (11.5-14.5) Platelet Count 178 x10^3/uL (140-400) Neutrophils (%) (Auto) 70 % (31-73) Lymphocytes (%) (Auto) 21 % (24-48) Monocytes (%) (Auto) 6 % (0-9) Eosinophils (%) (Auto) 3 % (0-3) Basophils (%) (Auto) 1 % (0-3) Neutrophils # (Auto) 3.9 x10^3/uL (1.8-7.7) Lymphocytes # (Auto) 1.2 x10^3/uL (1.0-4.8) Monocytes # (Auto) 0.3 x10^3/uL (0.0-1.1) Eosinophils # (Auto) 0.1 x10^3/uL (0.0-0.7) Basophils # (Auto) 0.0 x10^3/uL (0.0-0.2) Prothrombin Time 13.8 SEC (11.7-14.0) Prothromb Time International Ratio 1.1 (0.8-1.1) Activated Partial Thromboplast Time 33 SEC (24-38) Sodium Level 138 mmol/L (136-145) Potassium Level 4.7 mmol/L (3.5-5.1) Chloride Level 101 mmol/L (98-107) Carbon Dioxide Level 27 mmol/L (21-32) Anion Gap 10 (6-14) Blood Urea Nitrogen 43 mg/dL (7-20) Creatinine 1.6 mg/dL (0.6-1.0) Estimated GFR (Cockcroft-Gault) 40.5 BUN/Creatinine Ratio 27 (6-20) Glucose Level 112 mg/dL (70-99) Calcium Level 11.0 mg/dL (8.5-10.1) Total Bilirubin 0.4 mg/dL (0.2-1.0) Aspartate Amino Transf (AST/SGOT) 17 U/L (15-37) Alanine Aminotransferase (ALT/SGPT) 29 U/L (14-59) Alkaline Phosphatase 107 U/L (46-116) Total Protein 6.3 g/dL (6.4-8.2) Albumin 3.3 g/dL (3.4-5.0) Albumin/Globulin Ratio 1.1 (1.0-1.7) Images Images CT abd/pelvis - 1. Evaluation for GI bleeding limited given the presence oral contrast and lack of IV contrast. Within these constraints no obvious GI bleed is identified. 2. Colonic diverticulosis without evidence for acute diverticulitis. 3. No evidence for bowel obstruction. 4. Borderline hepatomegaly 5. Small hiatal hernia.. VTE Prophylaxis Ordered VTE Prophylaxis Devices: Yes VTE Pharmacological Prophylaxi: Contraindicated Assessment/Plan Assessment/Plan A/P: Lower GI bleed - likely diverticular. She had an EGD and Colonoscopy last year that reportedly showed polyps in her stomach and precancerous polyps in her colon. She was told to repeat her colonoscopy in 2019. Acute blood loss anemia type and screen sent - H&H q8 hrs. GI consulted. 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 Likely vasomotor nephropathy from her recent bout of diarrhea. Status post right hallux - from MRSA infection in 2014 at [facility]. FEN - NPO PPX - protonix gtt FULL CODE Dispo - inpatient, low threshold for ICU transfer ALLISON BRADFORD MD Mar 09, 2019 08:28
[2019-03-09] MEDS ORDERED: ALBUTEROL SULFATE 2.5 MG/3 ML NEBU. INH PRN (08:45)
[2019-03-09] MEDS ORDERED: INSULIN LISPRO 300 UNITS/3 ML INSULN.PEN. SQ SCH (08:45)
[2019-03-09] MEDS ORDERED: DEXTROSE 50% 25 GM / 50ML DISP.SYRIN. IV PRN (08:45)
[2019-03-09] MEDS: ISOSORBIDE MONONITRATE ER 30 MG TAB.ER.24H PO SCH (09:00)
[2019-03-09] MEDS: hydrALAZINE 25 MG TABLET PO SCH ×2 (09:00→14:00)
[2019-03-09 09:41] LABS: BASO % 1 % (0-3); EOS # 0.1 x10^3/uL (0.0-0.7); EOS % 3 % (0-3); HEMATOCRIT 24.2 % (36.0-47.0); HEMOGLOBIN 8.2 g/dL (12.0-15.5); LYMPH # 1.1 x10^3/uL (1.0-4.8); LYMPH % 21 % (24-48); MEAN CORPUSCULAR HEMOGLOBIN 29 pg (25-35); MEAN CORPUSCULAR HGB CONC 34 g/dL (31-37); MEAN CORPUSCULAR VOLUME 87 fL (79-100); MONO # 0.4 x10^3/uL (0.0-1.1); MONO % 8 % (0-9); NEUT # 3.4 x10^3/uL (1.8-7.7); NEUT % 68 % (31-73); PLATELET COUNT 148 x10^3/uL (140-400); RED BLOOD COUNT 2.79 x10^6/uL (3.50-5.40); RED CELL DISTRIBUTION WIDTH 15.5 % (11.5-14.5); WHITE BLOOD COUNT 5.1 x10^3/uL (4.0-11.0)
[2019-03-09] MEDS ORDERED: PANTOPRAZOLE SODIUM IV DRIP 80 MG in IV NORMAL SALINE 100ML 100 ML IV ONE (10:00)
[2019-03-09] MEDS ORDERED: INSULIN LISPRO 300 UNITS/3 ML INSULN.PEN. SQ PRN (12:00)
[2019-03-09 13:06] LABS: HEMOGLOBIN 8.1 g/dL (12.0-15.5); RED BLOOD COUNT 2.8 x10^6/uL (3.50-5.40); RED CELL DISTRIBUTION WIDTH 16.3 % (11.5-14.5)
--- NOTE | 2019-03-09 13:57 | PDOC2 ---
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 Patient states that since that time she has had several other bloody stools, for a total of 7 episodes at home and then another episode here in the emergency room. Patient estimates that she is passing between 1-1/2-2 cups of stool with each bowel movement and she states that they appear to be primarily blood. She also admits to lower abdominal pain and cramping Admit Hgb 8.3, Cr 1.6, BUN 43, Calcium 11. CT abdomen/pelvis non-contrast revealed no obvious masses or bleeding, did show diverticulosis, fatty liver. Her baseline Hgb is in the 8s. She received IV iron in December when her Fe was reportedly in the 6s after she passed out at work. She has received 1 unit of PRBCs. She had an EGD and Colonoscopy with Dr Mcdonough at [facility] last year that reportedly showed polyps in ehr sromach and precancerous polyps in her colon. She was told to repeat her colonoscopy in 2019. PMH: PMH: Past Medical History Cardiovascular: HTN, Hyperlipidemia, Other Pulmonary: No pertinent hx GI: GERD. EGD/Colonoscopy with Ceasar with reported gastric and colon polyps Musculoskeletal: low back pain Infectious disease: Other Endocrine: Diabetes Past Surgical History Past Surgical History: Appendectomy, Tonsillectomy, Hysterectomy,status post right hallux amputation from infection, history of right great toe amputation from MRSA infection in 2014 at [facility]. Family History Family History: Diabetes, High Cholestrol, Hypertension Family History: Parent Social History ALCOHOL: none Drugs: None Current Problem List Problem List Problems Medical Problems: (1) Lower GI bleed Status: Acute Current Medications Current Medications Current Medications Sodium Chloride 500 ml @ 500 mls/hr Q1H IV Last administered on 03/09/19at 04:33; Start 03/09/19 at 02:15; Stop 03/09/19 at 04:33; Status DC Pantoprazole Sodium (PROTONIX VIAL for IV PUSH) 40 mg 1X ONCE IVP Last administered on 03/09/19at 04:32; Start 03/09/19 at 02:15; Stop 03/09/19 at 02:18; Status DC Ondansetron HCl (Zofran) 4 mg PRN Q8HRS PRN IV NAUSEA/VOMITING; Start 03/09/19 at 03:45; Stop 03/10/19 at 03:44 Morphine Sulfate (Morphine Sulfate) 2 mg PRN Q2HR PRN IV PAIN; Start 03/09/19 at 03:45; Stop 03/10/19 at 03:44 Sodium Chloride 1,000 ml @ 150 mls/hr Q6H40M IV Last administered on 03/09/19at 06:13; Start 03/09/19 at 03:45; Stop 03/10/19 at 03:44 Acetaminophen (Tylenol) 650 mg PRN Q4HRS PRN PO FEVER; Start 03/09/19 at 03:45; Stop 03/10/19 at 03:44 Iohexol (Omnipaque 240 Mg/ml) 30 ml 1X ONCE PO Last administered on 03/09/19at 04:10; Start 03/09/19 at 04:15; Stop 03/09/19 at 04:16; Status DC Info (CONTRAST GIVEN -- Rx MONITORING) 1 each PRN DAILY PRN MC SEE COMMENTS; Start 03/09/19 at 04:15; Stop 03/11/19 at 04:14 Active Scripts Active Reported Vitamin D2 (Ergocalciferol (Vitamin D2)) 50,000 Unit Capsule 1 Cap PO WEEKLY Crestor (Rosuvastatin Calcium) 40 Mg Tablet 1 Tab PO DAILY Irbesartan 300 Mg Tablet 1 Tab PO HS Humulin R (Insulin Regular, Human) 100 Unit/1 Ml Vial 20 Unit IJ BID92 Ozempic (Semaglutide) 0.25 Mg/0.2 Ml Pen.injctr 0.25 Mg SQ WEEKLY Latanoprost 2.5 Ml Drops 1 Drop LEFTEYE QHS Omeprazole 40 Mg Capsule.dr 1 Cap PO DAILY Cyclobenzaprine Hcl 10 Mg Tablet 1 Tab PO TID Hydralazine Hcl 50 Mg Tablet 1 Tab PO HS Spironolactone 25 Mg Tablet 25 Mg PO HS Isosorbide Mononitrate Er (Isosorbide Mononitrate) 30 Mg Tab.er.24h 30 Mg PO DAILY Torsemide 20 Mg Tablet 20 Mg PO DAILY Carvedilol 25 Mg Tablet 1 Tab PO BID Hydralazine Hcl 25 Mg Tablet 1 Tab PO BID92 Escitalopram Oxalate 10 Mg Tablet 10 Mg PO HS Tresiba Flextouch U-100 (Insulin Degludec) 100 Unit/1 Ml Insuln.pen 30 Unit SQ HS Iron Supplement (Ferrous Sulfate) 325 Mg Tablet 1 Tab PO DAILY Ambien (Zolpidem Tartrate) 10 Mg Tablet 10 Mg PO QHS Proair Hfa Inhaler (Albuterol Sulfate) 8.5 Gm Hfa.aer.ad 2 Puff IH PRN Q4-6HRS Metformin Hcl 500 Mg Tablet 500 Mg PO BIDWMEALS Allergies Allergies: Coded Allergies: Penicillins (Verified Allergy, Severe, Swelling/anaphylaxis, 12/22/15) Patient states she has taken Rocephin before without any issues. Patient discussed with ID service she has tolerated amoxicillin and augmentin in the past. Sulfa (Sulfonamide Antibiotics) (Verified Allergy, Severe, Anaphylaxis, 12/22/15) latex (Verified Allergy, Severe, Swelling, 12/22/15) ciprofloxacin (Verified Allergy, Intermediate, Swelling, 01/24/18) meloxicam (Verified Allergy, Intermediate, Itching, 06/26/18) warfarin (Verified Allergy, Intermediate, Rash, 06/26/18) pregabalin (Verified Adverse Reaction, Intermediate, bruising, 06/26/18) blurred vision Social History: Smoke: No ALCOHOL: none Drugs: None ROS: GEN: Denies fevers, chills, sweats HEENT: Denies blurred vision, sore throat CV: Denies chest pain RESP: Denies shortness of air, cough GI: Per HPI : Denies hematuria, dysuria ENDO: Denies weight changes NEURO: Denies confusion, dizziness MSK: Denies weakness, joint pain/swelling SKIN: Denies jaundice, pruritus VItals: Vitals: Vital Signs Date Time Temp Pulse Resp B/P (MAP) Pulse Ox O2 Delivery O2 Flow Rate FiO2 03/09/19 12:04 98 Room Air 03/09/19 11:00 98.3 72 16 144/58 (86) 98.3 Labs: Labs: Laboratory Tests Test 03/09/19 02:15 03/09/19 09:30 03/09/19 12:35 03/09/19 13:00 White Blood Count 5.5 x10^3/uL (4.0-11.0) 5.1 x10^3/uL (4.0-11.0) 6.0 x10^3/uL (4.0-11.0) Red Blood Count 2.83 x10^6/uL (3.50-5.40) 2.79 x10^6/uL (3.50-5.40) 2.80 x10^6/uL (3.50-5.40) Hemoglobin 8.3 g/dL (12.0-15.5) 8.2 g/dL (12.0-15.5) 8.1 g/dL (12.0-15.5) Hematocrit 24.5 % (36.0-47.0) 24.2 % (36.0-47.0) 25.0 % (36.0-47.0) Mean Corpuscular Volume 87 fL (79-100) 87 fL (79-100) 89 fL (79-100) Mean Corpuscular Hemoglobin 30 pg (25-35) 29 pg (25-35) 29 pg (25-35) Mean Corpuscular Hemoglobin Concent 34 g/dL (31-37) 34 g/dL (31-37) 32 g/dL (31-37) Red Cell Distribution Width 15.5 % (11.5-14.5) 15.5 % (11.5-14.5) 16.3 % (11.5-14.5) Platelet Count 178 x10^3/uL (140-400) 148 x10^3/uL (140-400) 162 x10^3/uL (140-400) Neutrophils (%) (Auto) 70 % (31-73) 68 % (31-73) Lymphocytes (%) (Auto) 21 % (24-48) 21 % (24-48) Monocytes (%) (Auto) 6 % (0-9) 8 % (0-9) Eosinophils (%) (Auto) 3 % (0-3) 3 % (0-3) Basophils (%) (Auto) 1 % (0-3) 1 % (0-3) Neutrophils # (Auto) 3.9 x10^3/uL (1.8-7.7) 3.4 x10^3/uL (1.8-7.7) Lymphocytes # (Auto) 1.2 x10^3/uL (1.0-4.8) 1.1 x10^3/uL (1.0-4.8) Monocytes # (Auto) 0.3 x10^3/uL (0.0-1.1) 0.4 x10^3/uL (0.0-1.1) Eosinophils # (Auto) 0.1 x10^3/uL (0.0-0.7) 0.1 x10^3/uL (0.0-0.7) Basophils # (Auto) 0.0 x10^3/uL (0.0-0.2) 0.0 x10^3/uL (0.0-0.2) Prothrombin Time 13.8 SEC (11.7-14.0) Prothromb Time International Ratio 1.1 (0.8-1.1) Activated Partial Thromboplast Time 33 SEC (24-38) Sodium Level 138 mmol/L (136-145) Potassium Level 4.7 mmol/L (3.5-5.1) Chloride Level 101 mmol/L (98-107) Carbon Dioxide Level 27 mmol/L (21-32) Anion Gap 10 (6-14) Blood Urea Nitrogen 43 mg/dL (7-20) Creatinine 1.6 mg/dL (0.6-1.0) Estimated GFR (Cockcroft-Gault) 40.5 BUN/Creatinine Ratio 27 (6-20) Glucose Level 112 mg/dL (70-99) Calcium Level 11.0 mg/dL (8.5-10.1) Total Bilirubin 0.4 mg/dL (0.2-1.0) Aspartate Amino Transf (AST/SGOT) 17 U/L (15-37) Alanine Aminotransferase (ALT/SGPT) 29 U/L (14-59) Alkaline Phosphatase 107 U/L (46-116) Total Protein 6.3 g/dL (6.4-8.2) Albumin 3.3 g/dL (3.4-5.0) Albumin/Globulin Ratio 1.1 (1.0-1.7) Glucose (Fingerstick) 90 mg/dL (70-99) Imaging: Imaging: EXAM: CT Abdomen and Pelvis without IV contrast CLINICAL HISTORY: Lower GI bleed. COMPARISON: 11/07/2018 TECHNIQUE: Helical CT of the abdomen and pelvis without intravenous contrast. Oral contrast was administered. Axial, coronal and sagittal reformatted images were generated. PQRS compliance statement - One or more of the following individualized dose reduction techniques were utilized for this study: 1. Automated exposure control 2. Adjustment of the mA and/or kV according to patient size 3. Use of iterative reconstruction technique FINDINGS: Lack of intravenous contrast limits evaluation of solid organs, vasculature, and lymph nodes. Lower chest: Linear opacities in the lingula and middle lobe likely scarring/atelectasis. Abdomen and Pelvis: No focal liver lesion. Liver is borderline enlarged measuring 18.3 cm in length. High density material in the periventricular gallbladder likely sludge. Spleen is unremarkable. Adrenal glands are normal. No renal tract calculus. No hydronephrosis. No hydroureter. Bladder is unremarkable. Small hiatal hernia. Oral contrast material seen to the level of the middistal small bowel. Colonic diverticula are seen. No evidence for acute diverticulitis. No retroperitoneal hematoma or mass. No abdominal pelvic lymphadenopathy. Bones: Degenerative changes of the spine are seen. Mild leftward curvature of the lumbar spine IMPRESSION: 1. Evaluation for GI bleeding limited given the presence oral contrast and lack of IV contrast. Within these constraints no obvious GI bleed is identified. 2. Colonic diverticulosis without evidence for acute diverticulitis. 3. No evidence for bowel obstruction. 4. Borderline hepatomegaly 5. Small hiatal hernia.. Electronically signed by: Martin Rojas MD (03/09/2019 5:54 AM) [id number] DICTATED and SIGNED BY: MARTIN ROJAS MD DATE: 03/09/19 0554 PE: GEN: NAD HEENT: Atraumatic, PERRLA LUNGS: CTAB HEART: RRR, no murmurs ABD: NABS, S. TTP lower abd EXTREMITY: No edema SKIN: No rashes, no jaundice NEURO/PSYCH: A & O �3 A/P: A/P: A 1) Blood loss anemia 2)Diverticulosis 3)PMH colon polyps 4) Fe def anemia P 1) Suspect Diverticular bleed. Cr ordered this am was not done. Have reordered. If improved, favor bleeding scan. 2) I have discussed colonoscopy with patient. She states that she had one last year. If diverticular bleed, will be difficult to identify and treat in setting of unprepped colon. 3) Will follow Cr. If okay, favor bleeding scan. Pending results, we may prep her tonight for colon tomorrow 4) will go ahead and transfuse now. Her baseline Hgb is in the 8s which is where she is now 5) Low threshold for ICU transfer HARRISON CHEN MD Mar 09, 2019 13:57
[2019-03-09 14:39] LABS: CALCIUM 10.1 mg/dL (8.5-10.1); CREATININE 1.3 mg/dL (0.6-1.0); GFR 51.5; POTASSIUM 4.3 mmol/L (3.5-5.1)
[2019-03-09] MEDS ORDERED: HEPARIN for NUC MED 500 UNIT/5 ML DISP.SYRIN. IV ONE (16:00)
--- NOTE | 2019-03-09 16:20 | EKG ---
[facility] [address] [place] [address] Test Date: 2019-03-09 Test Time: 03:15:16 Pat Name: LORENZO MATA Department: Room: Gender: F Wrapping Machine Operator: ANDRE : 1965 Requested By: YUE RIVERA Order Number: [id number] Reading MD: Measurements Intervals [employer] Rate: 71 P: 49 ME: 158 QRS: -2 QRSD: 84 T: 103 QT: 392 QTc: 430 Interpretive Statements SINUS RHYTHM LEFTWARD AXIS T ABNORMALITY IN HIGH LATERAL LEADS ABNORMAL ECG No previous ECG available for comparison
[2019-03-09] MEDS: CARVEDILOL 12.5 MG TABLET. PO SCH (17:00)
--- NOTE | 2019-03-09 18:00 | RAD ---
Clinical History: Bloody stool 26.1 mCi Tc-99 m labeled red blood cells were administered via ultratag kit and spot view of the abdomen and pelvis was obtained by gamma camera for a nuclear medicine tagged red blood cell GI bleed study. There is activity seen within the vascular pool. There is no accumulation or propagation of activity to suggest an active bleed. Impression: Negative examination. Electronically signed by: Ivan Catalan III, MD (03/09/2019 5:57 PM) [id number]
[2019-03-09] MEDS: INSULIN GLARGINE 300 UNITS/3 ML INSULN.PEN. SQ SCH (21:00)
[2019-03-09] MEDS: ATORVASTATIN CALCIUM 40 MG TABLET. PO SCH (21:05)
[2019-03-09] MEDS: CITALOPRAM 20 MG TABLET. PO SCH (21:05)
[2019-03-09] MEDS: LATANOPROST 0.005% OPHTH SOLUTION 2.5ML BOTTLE. OS SCH (21:06)
[2019-03-10] VITALS (14 sets, daily range): BP systolic 116–163; BP diastolic 51–78
[2019-03-10] MEDS: IV NORMAL SALINE 1000ML BAG 1,000 ML IV SCH (04:03)
[2019-03-10] MEDS: hydrALAZINE 25 MG TABLET PO SCH ×2 (09:31→18:41)
[2019-03-10] MEDS: PANTOPRAZOLE IV PUSH 40 MG VIAL. IVP SCH (09:31)
[2019-03-10] MEDS: ISOSORBIDE MONONITRATE ER 30 MG TAB.ER.24H PO SCH (09:32)
[2019-03-10] MEDS: CARVEDILOL 12.5 MG TABLET. PO SCH ×2 (09:33→18:40)
[2019-03-10 13:30] LABS: BASO % 1 % (0-3); EOS # 0.2 x10^3/uL (0.0-0.7); EOS % 4 % (0-3); LYMPH # 0.8 x10^3/uL (1.0-4.8); LYMPH % 19 % (24-48); MEAN CORPUSCULAR HEMOGLOBIN 29 pg (25-35); MEAN CORPUSCULAR HGB CONC 34 g/dL (31-37); MEAN CORPUSCULAR VOLUME 87 fL (79-100); MONO # 0.3 x10^3/uL (0.0-1.1); MONO % 8 % (0-9); NEUT # 2.9 x10^3/uL (1.8-7.7); NEUT % 67 % (31-73); PLATELET COUNT 110 x10^3/uL (140-400); RED BLOOD COUNT 2.17 x10^6/uL (3.50-5.40); RED CELL DISTRIBUTION WIDTH 15.4 % (11.5-14.5); WHITE BLOOD COUNT 4.3 x10^3/uL (4.0-11.0)
[2019-03-10 13:34] LABS: HEMATOCRIT 18.8 % (36.0-47.0); HEMOGLOBIN 6.3 g/dL (12.0-15.5)
[2019-03-10 13:39] LABS: CALCIUM 9.4 mg/dL (8.5-10.1); CREATININE 1.2 mg/dL (0.6-1.0); GFR 56.4; POTASSIUM 4.1 mmol/L (3.5-5.1)
--- NOTE | 2019-03-10 14:15 | NUR ---
Have instructed patient not to get out of bed. Bedpan provided for patient. Patient informed that she would be receiving 2 units of blood.
--- NOTE | 2019-03-10 15:00 | NUR ---
Patient has had 3 bloody stools (very little feces observed)with bright red blood, and clots present) Pt has been placed on strict bedrest, and is NPO. Pt related that she felt some light headedness. HOB elevation decreased. O2 sat was 94-95 % on r/a. Placed on 2 1/2 L/nc, with sat at 99-100%.
--- NOTE | 2019-03-10 15:17 | PDOC ---
G I PROGRESS NOTE Subjective Bleeding again earlier this afternoon. Scant blood at this point. Has remained hemodynamically stable throughout. Physical Exam Lungs clear. RRR Abdomen soft, not tender nor distended. Review of Relevant I have reviewed the following items russell (where applicable) has been applied. Labs Laboratory Tests Test 03/09/19 02:15 03/09/19 09:30 03/09/19 12:35 03/09/19 13:00 White Blood Count 5.5 x10^3/uL (4.0-11.0) 5.1 x10^3/uL (4.0-11.0) 6.0 x10^3/uL (4.0-11.0) Red Blood Count 2.83 x10^6/uL (3.50-5.40) 2.79 x10^6/uL (3.50-5.40) 2.80 x10^6/uL (3.50-5.40) Hemoglobin 8.3 g/dL (12.0-15.5) 8.2 g/dL (12.0-15.5) 8.1 g/dL (12.0-15.5) Hematocrit 24.5 % (36.0-47.0) 24.2 % (36.0-47.0) 25.0 % (36.0-47.0) Mean Corpuscular Volume 87 fL (79-100) 87 fL (79-100) 89 fL (79-100) Mean Corpuscular Hemoglobin 30 pg (25-35) 29 pg (25-35) 29 pg (25-35) Mean Corpuscular Hemoglobin Concent 34 g/dL (31-37) 34 g/dL (31-37) 32 g/dL (31-37) Red Cell Distribution Width 15.5 % (11.5-14.5) 15.5 % (11.5-14.5) 16.3 % (11.5-14.5) Platelet Count 178 x10^3/uL (140-400) 148 x10^3/uL (140-400) 162 x10^3/uL (140-400) Neutrophils (%) (Auto) 70 % (31-73) 68 % (31-73) Lymphocytes (%) (Auto) 21 % (24-48) 21 % (24-48) Monocytes (%) (Auto) 6 % (0-9) 8 % (0-9) Eosinophils (%) (Auto) 3 % (0-3) 3 % (0-3) Basophils (%) (Auto) 1 % (0-3) 1 % (0-3) Neutrophils # (Auto) 3.9 x10^3/uL (1.8-7.7) 3.4 x10^3/uL (1.8-7.7) Lymphocytes # (Auto) 1.2 x10^3/uL (1.0-4.8) 1.1 x10^3/uL (1.0-4.8) Monocytes # (Auto) 0.3 x10^3/uL (0.0-1.1) 0.4 x10^3/uL (0.0-1.1) Eosinophils # (Auto) 0.1 x10^3/uL (0.0-0.7) 0.1 x10^3/uL (0.0-0.7) Basophils # (Auto) 0.0 x10^3/uL (0.0-0.2) 0.0 x10^3/uL (0.0-0.2) Prothrombin Time 13.8 SEC (11.7-14.0) Prothromb Time International Ratio 1.1 (0.8-1.1) Activated Partial Thromboplast Time 33 SEC (24-38) Sodium Level 138 mmol/L (136-145) Potassium Level 4.7 mmol/L (3.5-5.1) Chloride Level 101 mmol/L (98-107) Carbon Dioxide Level 27 mmol/L (21-32) Anion Gap 10 (6-14) Blood Urea Nitrogen 43 mg/dL (7-20) Creatinine 1.6 mg/dL (0.6-1.0) Estimated GFR (Cockcroft-Gault) 40.5 BUN/Creatinine Ratio 27 (6-20) Glucose Level 112 mg/dL (70-99) Calcium Level 11.0 mg/dL (8.5-10.1) Total Bilirubin 0.4 mg/dL (0.2-1.0) Aspartate Amino Transf (AST/SGOT) 17 U/L (15-37) Alanine Aminotransferase (ALT/SGPT) 29 U/L (14-59) Alkaline Phosphatase 107 U/L (46-116) Total Protein 6.3 g/dL (6.4-8.2) Albumin 3.3 g/dL (3.4-5.0) Albumin/Globulin Ratio 1.1 (1.0-1.7) Glucose (Fingerstick) 90 mg/dL (70-99) Test 03/09/19 14:00 03/09/19 21:09 03/10/19 07:24 03/10/19 12:08 Sodium Level 137 mmol/L (136-145) Potassium Level 4.3 mmol/L (3.5-5.1) Chloride Level 107 mmol/L (98-107) Carbon Dioxide Level 21 mmol/L (21-32) Anion Gap 9 (6-14) Blood Urea Nitrogen 43 mg/dL (7-20) Creatinine 1.3 mg/dL (0.6-1.0) Estimated GFR (Cockcroft-Gault) 51.5 Glucose Level 102 mg/dL (70-99) Calcium Level 10.1 mg/dL (8.5-10.1) Glucose (Fingerstick) 96 mg/dL (70-99) 107 mg/dL (70-99) 101 mg/dL (70-99) Test 03/10/19 13:20 White Blood Count 4.3 x10^3/uL (4.0-11.0) Red Blood Count 2.17 x10^6/uL (3.50-5.40) Hemoglobin 6.3 g/dL (12.0-15.5) Hematocrit 18.8 % (36.0-47.0) Mean Corpuscular Volume 87 fL (79-100) Mean Corpuscular Hemoglobin 29 pg (25-35) Mean Corpuscular Hemoglobin Concent 34 g/dL (31-37) Red Cell Distribution Width 15.4 % (11.5-14.5) Platelet Count 110 x10^3/uL (140-400) Neutrophils (%) (Auto) 67 % (31-73) Lymphocytes (%) (Auto) 19 % (24-48) Monocytes (%) (Auto) 8 % (0-9) Eosinophils (%) (Auto) 4 % (0-3) Basophils (%) (Auto) 1 % (0-3) Neutrophils # (Auto) 2.9 x10^3/uL (1.8-7.7) Lymphocytes # (Auto) 0.8 x10^3/uL (1.0-4.8) Monocytes # (Auto) 0.3 x10^3/uL (0.0-1.1) Eosinophils # (Auto) 0.2 x10^3/uL (0.0-0.7) Basophils # (Auto) 0.0 x10^3/uL (0.0-0.2) Sodium Level 144 mmol/L (136-145) Potassium Level 4.1 mmol/L (3.5-5.1) Chloride Level 112 mmol/L (98-107) Carbon Dioxide Level 21 mmol/L (21-32) Anion Gap 11 (6-14) Blood Urea Nitrogen 30 mg/dL (7-20) Creatinine 1.2 mg/dL (0.6-1.0) Estimated GFR (Cockcroft-Gault) 56.4 Glucose Level 197 mg/dL (70-99) Calcium Level 9.4 mg/dL (8.5-10.1) Laboratory Tests Test 03/09/19 21:09 03/10/19 07:24 03/10/19 12:08 03/10/19 13:20 Glucose (Fingerstick) 96 mg/dL (70-99) 107 mg/dL (70-99) 101 mg/dL (70-99) White Blood Count 4.3 x10^3/uL (4.0-11.0) Red Blood Count 2.17 x10^6/uL (3.50-5.40) Hemoglobin 6.3 g/dL (12.0-15.5) Hematocrit 18.8 % (36.0-47.0) Mean Corpuscular Volume 87 fL (79-100) Mean Corpuscular Hemoglobin 29 pg (25-35) Mean Corpuscular Hemoglobin Concent 34 g/dL (31-37) Red Cell Distribution Width 15.4 % (11.5-14.5) Platelet Count 110 x10^3/uL (140-400) Neutrophils (%) (Auto) 67 % (31-73) Lymphocytes (%) (Auto) 19 % (24-48) Monocytes (%) (Auto) 8 % (0-9) Eosinophils (%) (Auto) 4 % (0-3) Basophils (%) (Auto) 1 % (0-3) Neutrophils # (Auto) 2.9 x10^3/uL (1.8-7.7) Lymphocytes # (Auto) 0.8 x10^3/uL (1.0-4.8) Monocytes # (Auto) 0.3 x10^3/uL (0.0-1.1) Eosinophils # (Auto) 0.2 x10^3/uL (0.0-0.7) Basophils # (Auto) 0.0 x10^3/uL (0.0-0.2) Sodium Level 144 mmol/L (136-145) Potassium Level 4.1 mmol/L (3.5-5.1) Chloride Level 112 mmol/L (98-107) Carbon Dioxide Level 21 mmol/L (21-32) Anion Gap 11 (6-14) Blood Urea Nitrogen 30 mg/dL (7-20) Creatinine 1.2 mg/dL (0.6-1.0) Estimated GFR (Cockcroft-Gault) 56.4 Glucose Level 197 mg/dL (70-99) Calcium Level 9.4 mg/dL (8.5-10.1) Hemoglobin was stable in the 8's, now dropped to 6-eron. Vitals/I & O Vital Sign - Last 24 Hours 03/09/19 03/09/19 03/09/19 03/09/19 17:58 19:00 19:12 20:05 Temp 98.2 98.1 98.2 98.1 Pulse 87 86 82 Resp 18 20 B/P (MAP) 140/68 165/70 (101) Pulse Ox 96 O2 Delivery Room Air Room Air 03/09/19 03/09/19 03/10/19 03/10/19 21:05 23:25 03:15 07:00 Temp 98.3 98.7 98.5 98.3 98.7 98.5 Pulse 82 87 81 79 Resp 20 18 14 B/P (MAP) 165/70 128/63 (84) 135/68 (90) 159/61 (93) Pulse Ox 98 96 94 O2 Delivery Room Air Room Air Room Air 03/10/19 03/10/19 03/10/19 03/10/19 08:00 09:31 09:32 09:33 Pulse 79 79 79 B/P (MAP) 159/61 159/61 159/61 O2 Delivery Room Air 03/10/19 03/10/19 11:00 14:05 Temp 98.8 98.8 Pulse 76 Resp 16 B/P (MAP) 159/76 (103) 162/74 (103) O2 Delivery Room Air O2 Flow Rate 95.0 Intake and Output 03/09/19 03/09/19 03/10/19 15:00 23:00 07:00 Intake Total 100 ml Output Total 5 ml 0 ml Balance -5 ml 0 ml 100 ml Images Bleeding scan negative yesterday. Problem List Problems Medical Problems: (1) Lower GI bleed Status: Acute Assessment Rectal bleeding. "Stuttering" History consistent with diverticular bleeding (h/o diverticulosis). Hemodynamically stable; unclear actively bleeding at this point and still has tracer from yesterday likely and could not locallize. Plan of Care Note NPO save ice chips. Observe, continue IVF's, transfuse. If seemingly brisk bleeding, STAT CTA and consult IR for possible embolization. SYL BARNEY MD Mar 10, 2019 15:17
--- NOTE | 2019-03-10 16:04 | NUR ---
SS following for discharge planning. SS reviewed pt chart. Pt is from home with spouse and is currently on room air. No discharge needs noted at this time. SS will continue to follow for discharge planning.
--- NOTE | 2019-03-10 16:38 | PDOC ---
Provider Note Provider Note IR NOTE Probable lower GI bleed. Tagged scan negative yesterday. Hemodynamically stable, but with drop in Hb. CT done yesterday essentially unremarkable. Oral contrast was given... which may make CTA of essentially no diagnostic use if contrasts persists in the bowel. If there is evidence of more rapid bleeding, would need to check noncontrast CT first ( which is always performed in a scan for bleeding) to exclude presence of contrast before giving IV dye. If contrast remains throughout the bowel would consider repeat tagged rbc scan. JOSE COHEN MD Mar 10, 2019 16:38
--- NOTE | 2019-03-10 16:45 | NUR ---
Patient reports that she is feeling better, watching tv. Reinforced bedrest and NPO.
--- NOTE | 2019-03-10 18:30 | NUR ---
No further stools noted, appears to be tolerating transfusion well, with signs of reaction.
[2019-03-10] MEDS: INSULIN GLARGINE 300 UNITS/3 ML INSULN.PEN. SQ SCH (21:00)
[2019-03-10] MEDS: ATORVASTATIN CALCIUM 40 MG TABLET. PO SCH (21:22)
[2019-03-10] MEDS: CITALOPRAM 20 MG TABLET. PO SCH (21:22)
[2019-03-10] MEDS: LATANOPROST 0.005% OPHTH SOLUTION 2.5ML BOTTLE. OS SCH (21:22)
[2019-03-11] VITALS (8 sets, daily range): BP systolic 118–176; BP diastolic 64–79
[2019-03-11 00:12] LABS: HEMATOCRIT 22.6 % (36.0-47.0); HEMOGLOBIN 7.8 g/dL (12.0-15.5); RED BLOOD COUNT 2.6 x10^6/uL (3.50-5.40); RED CELL DISTRIBUTION WIDTH 14.4 % (11.5-14.5)
[2019-03-11 04:06] LABS: BASO % 1 % (0-3); EOS # 0.2 x10^3/uL (0.0-0.7); EOS % 4 % (0-3); HEMATOCRIT 21.9 % (36.0-47.0); HEMOGLOBIN 7.5 g/dL (12.0-15.5); LYMPH # 0.8 x10^3/uL (1.0-4.8); LYMPH % 15 % (24-48); MEAN CORPUSCULAR HEMOGLOBIN 30 pg (25-35); MEAN CORPUSCULAR HGB CONC 34 g/dL (31-37); MEAN CORPUSCULAR VOLUME 86 fL (79-100); MONO # 0.4 x10^3/uL (0.0-1.1); MONO % 8 % (0-9); NEUT % 73 % (31-73); PLATELET COUNT 104 x10^3/uL (140-400); RED BLOOD COUNT 2.53 x10^6/uL (3.50-5.40); RED CELL DISTRIBUTION WIDTH 14.7 % (11.5-14.5); WHITE BLOOD COUNT 5.5 x10^3/uL (4.0-11.0)
[2019-03-11 04:31] LABS: CALCIUM 9.7 mg/dL (8.5-10.1); GFR 69.7; POTASSIUM 3.9 mmol/L (3.5-5.1)
[2019-03-11] MEDS: PANTOPRAZOLE IV PUSH 40 MG VIAL. IVP SCH (07:40)
[2019-03-11] MEDS: hydrALAZINE 25 MG TABLET PO SCH ×2 (08:38→15:06)
[2019-03-11] MEDS: CARVEDILOL 12.5 MG TABLET. PO SCH ×2 (08:38→17:30)
[2019-03-11] MEDS: ISOSORBIDE MONONITRATE ER 30 MG TAB.ER.24H PO SCH (08:39)
--- NOTE | 2019-03-11 10:21 | PDOC ---
PROGRESS NOTES Chief Complaint Chief Complaint LATE entry, pt seen 03/10 Lower GI bleed - likely diverticular. She had an EGD and Colonoscopy last year that reportedly showed polyps in her stomach and precancerous polyps in her colon. She was told to repeat her colonoscopy in 2019. Acute blood loss anemia type and screen sent - H&H q8 hrs. GI consulted. 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 Likely vasomotor nephropathy from her recent bout of diarrhea. Status post right hallux - from MRSA infection in 2014 at [facility]. Vitals Vitals Vital Signs Date Time Temp Pulse Resp B/P (MAP) Pulse Ox O2 Delivery O2 Flow Rate FiO2 03/11/19 08:39 96 166/79 03/11/19 07:59 Room Air 03/11/19 07:00 98.3 16 100 98.3 03/10/19 11:00 95.0 Physical Exam General: Alert, Oriented X3, Cooperative, No acute distress Lungs: Clear Abdomen: Normal bowel sounds, Soft, No tenderness, No hepatosplenomegaly, No masses Extremities: No clubbing, No cyanosis, No edema, Normal pulses, No tenderness/swelling Skin: No rashes, No breakdown, No significant lesion Labs LABS Laboratory Tests Test 03/10/19 12:08 03/10/19 13:20 03/10/19 17:02 03/10/19 20:56 Glucose (Fingerstick) 101 mg/dL (70-99) 101 mg/dL (70-99) 101 mg/dL (70-99) White Blood Count 4.3 x10^3/uL (4.0-11.0) Red Blood Count 2.17 x10^6/uL (3.50-5.40) Hemoglobin 6.3 g/dL (12.0-15.5) Hematocrit 18.8 % (36.0-47.0) Mean Corpuscular Volume 87 fL (79-100) Mean Corpuscular Hemoglobin 29 pg (25-35) Mean Corpuscular Hemoglobin Concent 34 g/dL (31-37) Red Cell Distribution Width 15.4 % (11.5-14.5) Platelet Count 110 x10^3/uL (140-400) Neutrophils (%) (Auto) 67 % (31-73) Lymphocytes (%) (Auto) 19 % (24-48) Monocytes (%) (Auto) 8 % (0-9) Eosinophils (%) (Auto) 4 % (0-3) Basophils (%) (Auto) 1 % (0-3) Neutrophils # (Auto) 2.9 x10^3/uL (1.8-7.7) Lymphocytes # (Auto) 0.8 x10^3/uL (1.0-4.8) Monocytes # (Auto) 0.3 x10^3/uL (0.0-1.1) Eosinophils # (Auto) 0.2 x10^3/uL (0.0-0.7) Basophils # (Auto) 0.0 x10^3/uL (0.0-0.2) Sodium Level 144 mmol/L (136-145) Potassium Level 4.1 mmol/L (3.5-5.1) Chloride Level 112 mmol/L (98-107) Carbon Dioxide Level 21 mmol/L (21-32) Anion Gap 11 (6-14) Blood Urea Nitrogen 30 mg/dL (7-20) Creatinine 1.2 mg/dL (0.6-1.0) Estimated GFR (Cockcroft-Gault) 56.4 Glucose Level 197 mg/dL (70-99) Calcium Level 9.4 mg/dL (8.5-10.1) Test 03/11/19 00:05 03/11/19 03:50 03/11/19 07:54 White Blood Count 6.0 x10^3/uL (4.0-11.0) 5.5 x10^3/uL (4.0-11.0) Red Blood Count 2.60 x10^6/uL (3.50-5.40) 2.53 x10^6/uL (3.50-5.40) Hemoglobin 7.8 g/dL (12.0-15.5) 7.5 g/dL (12.0-15.5) Hematocrit 22.6 % (36.0-47.0) 21.9 % (36.0-47.0) Mean Corpuscular Volume 87 fL (79-100) 86 fL (79-100) Mean Corpuscular Hemoglobin 30 pg (25-35) 30 pg (25-35) Mean Corpuscular Hemoglobin Concent 34 g/dL (31-37) 34 g/dL (31-37) Red Cell Distribution Width 14.4 % (11.5-14.5) 14.7 % (11.5-14.5) Platelet Count 104 x10^3/uL (140-400) 104 x10^3/uL (140-400) Neutrophils (%) (Auto) 73 % (31-73) Lymphocytes (%) (Auto) 15 % (24-48) Monocytes (%) (Auto) 8 % (0-9) Eosinophils (%) (Auto) 4 % (0-3) Basophils (%) (Auto) 1 % (0-3) Neutrophils # (Auto) 4.0 x10^3/uL (1.8-7.7) Lymphocytes # (Auto) 0.8 x10^3/uL (1.0-4.8) Monocytes # (Auto) 0.4 x10^3/uL (0.0-1.1) Eosinophils # (Auto) 0.2 x10^3/uL (0.0-0.7) Basophils # (Auto) 0.0 x10^3/uL (0.0-0.2) Sodium Level 143 mmol/L (136-145) Potassium Level 3.9 mmol/L (3.5-5.1) Chloride Level 112 mmol/L (98-107) Carbon Dioxide Level 22 mmol/L (21-32) Anion Gap 9 (6-14) Blood Urea Nitrogen 23 mg/dL (7-20) Creatinine 1.0 mg/dL (0.6-1.0) Estimated GFR (Cockcroft-Gault) 69.7 Glucose Level 149 mg/dL (70-99) Calcium Level 9.7 mg/dL (8.5-10.1) Glucose (Fingerstick) 119 mg/dL (70-99) Assessment and Plan Assessmemt and Plan Problems Medical Problems: (1) Acute kidney injury superimposed on CKD Status: Acute (2) Blood loss anemia Status: Acute (3) Diverticulosis Status: Chronic (4) DM2 (diabetes mellitus, type 2) Status: Chronic (5) HLD (hyperlipidemia) Status: Chronic (6) HTN (hypertension) Status: Chronic (7) Lower GI bleed Status: Acute Comment Review of Relevant I have reviewed the following items russell (where applicable) has been applied. Labs Laboratory Tests Test 03/09/19 12:35 03/09/19 13:00 03/09/19 14:00 03/09/19 21:09 Glucose (Fingerstick) 90 mg/dL (70-99) 96 mg/dL (70-99) White Blood Count 6.0 x10^3/uL (4.0-11.0) Red Blood Count 2.80 x10^6/uL (3.50-5.40) Hemoglobin 8.1 g/dL (12.0-15.5) Hematocrit 25.0 % (36.0-47.0) Mean Corpuscular Volume 89 fL (79-100) Mean Corpuscular Hemoglobin 29 pg (25-35) Mean Corpuscular Hemoglobin Concent 32 g/dL (31-37) Red Cell Distribution Width 16.3 % (11.5-14.5) Platelet Count 162 x10^3/uL (140-400) Sodium Level 137 mmol/L (136-145) Potassium Level 4.3 mmol/L (3.5-5.1) Chloride Level 107 mmol/L (98-107) Carbon Dioxide Level 21 mmol/L (21-32) Anion Gap 9 (6-14) Blood Urea Nitrogen 43 mg/dL (7-20) Creatinine 1.3 mg/dL (0.6-1.0) Estimated GFR (Cockcroft-Gault) 51.5 Glucose Level 102 mg/dL (70-99) Calcium Level 10.1 mg/dL (8.5-10.1) Test 03/10/19 07:24 03/10/19 12:08 03/10/19 13:20 03/10/19 17:02 Glucose (Fingerstick) 107 mg/dL (70-99) 101 mg/dL (70-99) 101 mg/dL (70-99) White Blood Count 4.3 x10^3/uL (4.0-11.0) Red Blood Count 2.17 x10^6/uL (3.50-5.40) Hemoglobin 6.3 g/dL (12.0-15.5) Hematocrit 18.8 % (36.0-47.0) Mean Corpuscular Volume 87 fL (79-100) Mean Corpuscular Hemoglobin 29 pg (25-35) Mean Corpuscular Hemoglobin Concent 34 g/dL (31-37) Red Cell Distribution Width 15.4 % (11.5-14.5) Platelet Count 110 x10^3/uL (140-400) Neutrophils (%) (Auto) 67 % (31-73) Lymphocytes (%) (Auto) 19 % (24-48) Monocytes (%) (Auto) 8 % (0-9) Eosinophils (%) (Auto) 4 % (0-3) Basophils (%) (Auto) 1 % (0-3) Neutrophils # (Auto) 2.9 x10^3/uL (1.8-7.7) Lymphocytes # (Auto) 0.8 x10^3/uL (1.0-4.8) Monocytes # (Auto) 0.3 x10^3/uL (0.0-1.1) Eosinophils # (Auto) 0.2 x10^3/uL (0.0-0.7) Basophils # (Auto) 0.0 x10^3/uL (0.0-0.2) Sodium Level 144 mmol/L (136-145) Potassium Level 4.1 mmol/L (3.5-5.1) Chloride Level 112 mmol/L (98-107) Carbon Dioxide Level 21 mmol/L (21-32) Anion Gap 11 (6-14) Blood Urea Nitrogen 30 mg/dL (7-20) Creatinine 1.2 mg/dL (0.6-1.0) Estimated GFR (Cockcroft-Gault) 56.4 Glucose Level 197 mg/dL (70-99) Calcium Level 9.4 mg/dL (8.5-10.1) Test 03/10/19 20:56 03/11/19 00:05 03/11/19 03:50 03/11/19 07:54 Glucose (Fingerstick) 101 mg/dL (70-99) 119 mg/dL (70-99) White Blood Count 6.0 x10^3/uL (4.0-11.0) 5.5 x10^3/uL (4.0-11.0) Red Blood Count 2.60 x10^6/uL (3.50-5.40) 2.53 x10^6/uL (3.50-5.40) Hemoglobin 7.8 g/dL (12.0-15.5) 7.5 g/dL (12.0-15.5) Hematocrit 22.6 % (36.0-47.0) 21.9 % (36.0-47.0) Mean Corpuscular Volume 87 fL (79-100) 86 fL (79-100) Mean Corpuscular Hemoglobin 30 pg (25-35) 30 pg (25-35) Mean Corpuscular Hemoglobin Concent 34 g/dL (31-37) 34 g/dL (31-37) Red Cell Distribution Width 14.4 % (11.5-14.5) 14.7 % (11.5-14.5) Platelet Count 104 x10^3/uL (140-400) 104 x10^3/uL (140-400) Neutrophils (%) (Auto) 73 % (31-73) Lymphocytes (%) (Auto) 15 % (24-48) Monocytes (%) (Auto) 8 % (0-9) Eosinophils (%) (Auto) 4 % (0-3) Basophils (%) (Auto) 1 % (0-3) Neutrophils # (Auto) 4.0 x10^3/uL (1.8-7.7) Lymphocytes # (Auto) 0.8 x10^3/uL (1.0-4.8) Monocytes # (Auto) 0.4 x10^3/uL (0.0-1.1) Eosinophils # (Auto) 0.2 x10^3/uL (0.0-0.7) Basophils # (Auto) 0.0 x10^3/uL (0.0-0.2) Sodium Level 143 mmol/L (136-145) Potassium Level 3.9 mmol/L (3.5-5.1) Chloride Level 112 mmol/L (98-107) Carbon Dioxide Level 22 mmol/L (21-32) Anion Gap 9 (6-14) Blood Urea Nitrogen 23 mg/dL (7-20) Creatinine 1.0 mg/dL (0.6-1.0) Estimated GFR (Cockcroft-Gault) 69.7 Glucose Level 149 mg/dL (70-99) Calcium Level 9.7 mg/dL (8.5-10.1) Laboratory Tests Test 03/10/19 12:08 03/10/19 13:20 03/10/19 17:02 03/10/19 20:56 Glucose (Fingerstick) 101 mg/dL (70-99) 101 mg/dL (70-99) 101 mg/dL (70-99) White Blood Count 4.3 x10^3/uL (4.0-11.0) Red Blood Count 2.17 x10^6/uL (3.50-5.40) Hemoglobin 6.3 g/dL (12.0-15.5) Hematocrit 18.8 % (36.0-47.0) Mean Corpuscular Volume 87 fL (79-100) Mean Corpuscular Hemoglobin 29 pg (25-35) Mean Corpuscular Hemoglobin Concent 34 g/dL (31-37) Red Cell Distribution Width 15.4 % (11.5-14.5) Platelet Count 110 x10^3/uL (140-400) Neutrophils (%) (Auto) 67 % (31-73) Lymphocytes (%) (Auto) 19 % (24-48) Monocytes (%) (Auto) 8 % (0-9) Eosinophils (%) (Auto) 4 % (0-3) Basophils (%) (Auto) 1 % (0-3) Neutrophils # (Auto) 2.9 x10^3/uL (1.8-7.7) Lymphocytes # (Auto) 0.8 x10^3/uL (1.0-4.8) Monocytes # (Auto) 0.3 x10^3/uL (0.0-1.1) Eosinophils # (Auto) 0.2 x10^3/uL (0.0-0.7) Basophils # (Auto) 0.0 x10^3/uL (0.0-0.2) Sodium Level 144 mmol/L (136-145) Potassium Level 4.1 mmol/L (3.5-5.1) Chloride Level 112 mmol/L (98-107) Carbon Dioxide Level 21 mmol/L (21-32) Anion Gap 11 (6-14) Blood Urea Nitrogen 30 mg/dL (7-20) Creatinine 1.2 mg/dL (0.6-1.0) Estimated GFR (Cockcroft-Gault) 56.4 Glucose Level 197 mg/dL (70-99) Calcium Level 9.4 mg/dL (8.5-10.1) Test 03/11/19 00:05 03/11/19 03:50 03/11/19 07:54 White Blood Count 6.0 x10^3/uL (4.0-11.0) 5.5 x10^3/uL (4.0-11.0) Red Blood Count 2.60 x10^6/uL (3.50-5.40) 2.53 x10^6/uL (3.50-5.40) Hemoglobin 7.8 g/dL (12.0-15.5) 7.5 g/dL (12.0-15.5) Hematocrit 22.6 % (36.0-47.0) 21.9 % (36.0-47.0) Mean Corpuscular Volume 87 fL (79-100) 86 fL (79-100) Mean Corpuscular Hemoglobin 30 pg (25-35) 30 pg (25-35) Mean Corpuscular Hemoglobin Concent 34 g/dL (31-37) 34 g/dL (31-37) Red Cell Distribution Width 14.4 % (11.5-14.5) 14.7 % (11.5-14.5) Platelet Count 104 x10^3/uL (140-400) 104 x10^3/uL (140-400) Neutrophils (%) (Auto) 73 % (31-73) Lymphocytes (%) (Auto) 15 % (24-48) Monocytes (%) (Auto) 8 % (0-9) Eosinophils (%) (Auto) 4 % (0-3) Basophils (%) (Auto) 1 % (0-3) Neutrophils # (Auto) 4.0 x10^3/uL (1.8-7.7) Lymphocytes # (Auto) 0.8 x10^3/uL (1.0-4.8) Monocytes # (Auto) 0.4 x10^3/uL (0.0-1.1) Eosinophils # (Auto) 0.2 x10^3/uL (0.0-0.7) Basophils # (Auto) 0.0 x10^3/uL (0.0-0.2) Sodium Level 143 mmol/L (136-145) Potassium Level 3.9 mmol/L (3.5-5.1) Chloride Level 112 mmol/L (98-107) Carbon Dioxide Level 22 mmol/L (21-32) Anion Gap 9 (6-14) Blood Urea Nitrogen 23 mg/dL (7-20) Creatinine 1.0 mg/dL (0.6-1.0) Estimated GFR (Cockcroft-Gault) 69.7 Glucose Level 149 mg/dL (70-99) Calcium Level 9.7 mg/dL (8.5-10.1) Glucose (Fingerstick) 119 mg/dL (70-99) Medications Current Medications Sodium Chloride 500 ml @ 500 mls/hr Q1H IV Last administered on 03/09/19at 04:33; Start 03/09/19 at 02:15; Stop 03/09/19 at 04:33; Status DC Pantoprazole Sodium (PROTONIX VIAL for IV PUSH) 40 mg 1X ONCE IVP Last administered on 03/09/19at 04:32; Start 03/09/19 at 02:15; Stop 03/09/19 at 02:18; Status DC Ondansetron HCl (Zofran) 4 mg PRN Q8HRS PRN IV NAUSEA/VOMITING; Start 03/09/19 at 03:45; Stop 03/10/19 at 03:44; Status DC Morphine Sulfate (Morphine Sulfate) 2 mg PRN Q2HR PRN IV PAIN; Start 03/09/19 at 03:45; Stop 03/10/19 at 03:44; Status DC Sodium Chloride 1,000 ml @ 150 mls/hr Q6H40M IV Last administered on 03/10/19at 04:03; Start 03/09/19 at 03:45; Stop 03/10/19 at 03:44; Status DC Acetaminophen (Tylenol) 650 mg PRN Q4HRS PRN PO FEVER; Start 03/09/19 at 03:45; Stop 03/10/19 at 03:44; Status DC Iohexol (Omnipaque 240 Mg/ml) 30 ml 1X ONCE PO Last administered on 03/09/19at 04:10; Start 03/09/19 at 04:15; Stop 03/09/19 at 04:16; Status DC Info (CONTRAST GIVEN -- Rx MONITORING) 1 each PRN DAILY PRN MC SEE COMMENTS; Start 03/09/19 at 04:15; Stop 03/11/19 at 04:15; Status DC Albuterol Sulfate (Ventolin Neb Soln) 2.5 mg PRN Q2HRS PRN INH shortness of breath; Start 03/09/19 at 08:45 Isosorbide Mononitrate (Imdur) 30 mg DAILY PO Last administered on 03/11/19at 08:39; Start 03/09/19 at 09:00 Carvedilol (Coreg) 25 mg BIDWMEALS PO Last administered on 03/11/19at 08:38; Start 03/09/19 at 17:00 Citalopram Hydrobromide (CeleXA) 20 mg QHS PO Last administered on 03/10/19at 21:22; Start 03/09/19 at 21:00 Hydralazine HCl (Apresoline) 25 mg [id number] PO Last administered on 03/11/19at 08:38; Start 03/09/19 at 09:00 Hydralazine HCl (Apresoline) 50 mg QHS PO Last administered on 03/10/19at 21:22; Start 03/09/19 at 21:00 Insulin Glargine (Lantus) 15 units QHS SQ ; Start 03/09/19 at 21:00 Latanoprost (Xalatan) 1 drop QHS OS Last administered on 03/10/19at 21:22; Start 03/09/19 at 21:00 Atorvastatin Calcium (Lipitor) 80 mg QHS PO Last administered on 03/10/19at 21:22; Start 03/09/19 at 21:00 Zolpidem Tartrate (Ambien) 5 mg PRN QHS PRN PO INSOMNIA; Start 03/09/19 at 08:45 Insulin Human Lispro (HumaLOG) 0-5 UNITS PRN Q4HRS SQ ; Start 03/09/19 at 08:4 5; Stop 03/09/19 at 09:13; Status DC Dextrose (Dextrose 50%-Water Syringe) 12.5 gm PRN Q15MIN PRN IV SEE COMMENTS; Start 03/09/19 at 08:45 Pantoprazole Sodium (PROTONIX VIAL for IV PUSH) 40 mg DAILYAC IVP Last administered on 03/11/19at 07:40; Start 03/10/19 at 07:30 Pantoprazole Sodium 80 mg/ Sodium Chloride 100 ml @ 10 mls/hr 1X ONCE IV Last administered on 03/09/19at 09:56; Start 03/09/19 at 10:00; Stop 03/09/19 at 19:59; Status DC Insulin Human Lispro (HumaLOG) 0-5 UNITS PRN Q4HRS PRN SQ BLOOD SUGAR; Start 03/09/19 at 12:00 Heparin Sodium (Porcine) (HEPARIN for NUC MED) 100 unit 1X ONCE IV ; Start 03/09/19 at 16:00; Stop 03/09/19 at 16:01; Status DC Active Scripts Active Reported Vitamin D2 (Ergocalciferol (Vitamin D2)) 50,000 Unit Capsule 1 Cap PO WEEKLY Crestor (Rosuvastatin Calcium) 40 Mg Tablet 1 Tab PO DAILY Irbesartan 300 Mg Tablet 1 Tab PO HS Humulin R (Insulin Regular, Human) 100 Unit/1 Ml Vial 20 Unit IJ [id number] Ozempic (Semaglutide) 0.25 Mg/0.2 Ml Pen.injctr 0.25 Mg SQ WEEKLY Latanoprost 2.5 Ml Drops 1 Drop LEFTEYE QHS Omeprazole 40 Mg Capsule.dr 1 Cap PO DAILY Cyclobenzaprine Hcl 10 Mg Tablet 1 Tab PO TID Hydralazine Hcl 50 Mg Tablet 1 Tab PO HS Spironolactone 25 Mg Tablet 25 Mg PO HS Isosorbide Mononitrate Er (Isosorbide Mononitrate) 30 Mg Tab.er.24h 30 Mg PO DAILY Torsemide 20 Mg Tablet 20 Mg PO DAILY Carvedilol 25 Mg Tablet 1 Tab PO BID Hydralazine Hcl 25 Mg Tablet 1 Tab PO BID92 Escitalopram Oxalate 10 Mg Tablet 10 Mg PO HS Tresiba Flextouch U-100 (Insulin Degludec) 100 Unit/1 Ml Insuln.pen 30 Unit SQ HS Iron Supplement (Ferrous Sulfate) 325 Mg Tablet 1 Tab PO DAILY Ambien (Zolpidem Tartrate) 10 Mg Tablet 10 Mg PO QHS Proair Hfa Inhaler (Albuterol Sulfate) 8.5 Gm Hfa.aer.ad 2 Puff IH PRN Q4-6HRS Metformin Hcl 500 Mg Tablet 500 Mg PO BIDWMEALS Vitals/I & O Vital Sign - Last 24 Hours 03/10/19 03/10/19 03/10/19 03/10/19 11:00 14:05 17:00 17:15 Temp 98.8 98.6 98.6 98.8 98.6 98.6 Pulse 76 78 79 Resp 16 18 20 B/P (MAP) 159/76 (103) 162/74 (103) 163/78 148/68 O2 Delivery Room Air O2 Flow Rate 95.0 03/10/19 03/10/19 03/10/19 03/10/19 17:30 17:45 18:36 18:40 Temp 99.5 99.5 99.5 99.5 99.5 99.5 Pulse 78 77 80 80 Resp 20 20 18 B/P (MAP) 163/66 157/66 147/65 147/65 03/10/19 03/10/19 03/10/19 03/10/19 18:41 19:35 20:00 20:29 Temp 98.4 98.8 98.4 98.8 Pulse 80 86 83 Resp 20 18 B/P (MAP) 147/65 134/53 (80) 119/51 Pulse Ox 99 O2 Delivery Room Air Room Air 03/10/19 03/10/19 03/10/19 03/10/19 21:22 21:35 22:38 22:38 Temp 98.1 98.1 98.1 98.1 98.1 98.1 Pulse 79 80 85 85 Resp 18 18 18 B/P (MAP) 132/57 129/52 116/51 (72) 116/51 Pulse Ox 96 O2 Delivery Room Air 03/10/19 03/11/19 03/11/19 03/11/19 23:39 00:42 02:50 07:00 Temp 98.2 98.4 97.9 98.3 98.2 98.4 97.9 98.3 Pulse 82 83 83 96 Resp 16 16 20 16 B/P (MAP) 142/65 153/64 159/79 (105) 166/79 (108) Pulse Ox 98 100 O2 Delivery Room Air Room Air 03/11/19 03/11/19 03/11/1930/19 07:59 08:38 08:38 08:39 Pulse 96 96 96 B/P (MAP) 166/79 166/79 166/79 O2 Delivery Room Air Intake and Output 03/10/19 03/10/19 03/11/19 14:59 22:59 06:59 Intake Total 1440 ml 405 ml 50 ml Output Total 1200 ml 400 ml 500 ml Balance 240 ml 5 ml -450 ml ROBERT KELLER MD Mar 11, 2019 10:21
--- NOTE | 2019-03-11 10:53 | PDOC ---
PROGRESS NOTES Chief Complaint Chief Complaint Lower GI bleed - likely diverticular. 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 History of Present Illness History of Present Illness she is very frustrated and has complained to patient experience that we are not fixing her faster. I spent 25 minutes explaining the inexact science of GI bleeds, how the scan only finds acute blood loss, and she seems to have 2 separate bleeding incidents that we have not captured no bleeding now for 12 hours, no stool, she feels tired and weak GI and IR following Vitals Vitals Vital Signs Date Time Temp Pulse Resp B/P (MAP) Pulse Ox O2 Delivery O2 Flow Rate FiO2 03/11/19 08:39 96 166/79 03/11/19 07:59 Room Air 03/11/19 07:00 98.3 16 100 98.3 03/10/19 11:00 95.0 Physical Exam General: Alert, Oriented X3, Cooperative, No acute distress Lungs: Clear Abdomen: Normal bowel sounds, Soft, No tenderness, No hepatosplenomegaly, No masses Extremities: No clubbing, No cyanosis, No edema, Normal pulses, No tenderness/swelling Skin: No rashes, No breakdown, No significant lesion Labs LABS Laboratory Tests Test 03/10/19 12:08 03/10/19 13:20 03/10/19 17:02 03/10/19 20:56 Glucose (Fingerstick) 101 mg/dL (70-99) 101 mg/dL (70-99) 101 mg/dL (70-99) White Blood Count 4.3 x10^3/uL (4.0-11.0) Red Blood Count 2.17 x10^6/uL (3.50-5.40) Hemoglobin 6.3 g/dL (12.0-15.5) Hematocrit 18.8 % (36.0-47.0) Mean Corpuscular Volume 87 fL (79-100) Mean Corpuscular Hemoglobin 29 pg (25-35) Mean Corpuscular Hemoglobin Concent 34 g/dL (31-37) Red Cell Distribution Width 15.4 % (11.5-14.5) Platelet Count 110 x10^3/uL (140-400) Neutrophils (%) (Auto) 67 % (31-73) Lymphocytes (%) (Auto) 19 % (24-48) Monocytes (%) (Auto) 8 % (0-9) Eosinophils (%) (Auto) 4 % (0-3) Basophils (%) (Auto) 1 % (0-3) Neutrophils # (Auto) 2.9 x10^3/uL (1.8-7.7) Lymphocytes # (Auto) 0.8 x10^3/uL (1.0-4.8) Monocytes # (Auto) 0.3 x10^3/uL (0.0-1.1) Eosinophils # (Auto) 0.2 x10^3/uL (0.0-0.7) Basophils # (Auto) 0.0 x10^3/uL (0.0-0.2) Sodium Level 144 mmol/L (136-145) Potassium Level 4.1 mmol/L (3.5-5.1) Chloride Level 112 mmol/L (98-107) Carbon Dioxide Level 21 mmol/L (21-32) Anion Gap 11 (6-14) Blood Urea Nitrogen 30 mg/dL (7-20) Creatinine 1.2 mg/dL (0.6-1.0) Estimated GFR (Cockcroft-Gault) 56.4 Glucose Level 197 mg/dL (70-99) Calcium Level 9.4 mg/dL (8.5-10.1) Test 03/11/19 00:05 03/11/19 03:50 03/11/19 07:54 White Blood Count 6.0 x10^3/uL (4.0-11.0) 5.5 x10^3/uL (4.0-11.0) Red Blood Count 2.60 x10^6/uL (3.50-5.40) 2.53 x10^6/uL (3.50-5.40) Hemoglobin 7.8 g/dL (12.0-15.5) 7.5 g/dL (12.0-15.5) Hematocrit 22.6 % (36.0-47.0) 21.9 % (36.0-47.0) Mean Corpuscular Volume 87 fL (79-100) 86 fL (79-100) Mean Corpuscular Hemoglobin 30 pg (25-35) 30 pg (25-35) Mean Corpuscular Hemoglobin Concent 34 g/dL (31-37) 34 g/dL (31-37) Red Cell Distribution Width 14.4 % (11.5-14.5) 14.7 % (11.5-14.5) Platelet Count 104 x10^3/uL (140-400) 104 x10^3/uL (140-400) Neutrophils (%) (Auto) 73 % (31-73) Lymphocytes (%) (Auto) 15 % (24-48) Monocytes (%) (Auto) 8 % (0-9) Eosinophils (%) (Auto) 4 % (0-3) Basophils (%) (Auto) 1 % (0-3) Neutrophils # (Auto) 4.0 x10^3/uL (1.8-7.7) Lymphocytes # (Auto) 0.8 x10^3/uL (1.0-4.8) Monocytes # (Auto) 0.4 x10^3/uL (0.0-1.1) Eosinophils # (Auto) 0.2 x10^3/uL (0.0-0.7) Basophils # (Auto) 0.0 x10^3/uL (0.0-0.2) Sodium Level 143 mmol/L (136-145) Potassium Level 3.9 mmol/L (3.5-5.1) Chloride Level 112 mmol/L (98-107) Carbon Dioxide Level 22 mmol/L (21-32) Anion Gap 9 (6-14) Blood Urea Nitrogen 23 mg/dL (7-20) Creatinine 1.0 mg/dL (0.6-1.0) Estimated GFR (Cockcroft-Gault) 69.7 Glucose Level 149 mg/dL (70-99) Calcium Level 9.7 mg/dL (8.5-10.1) Glucose (Fingerstick) 119 mg/dL (70-99) Assessment and Plan Assessmemt and Plan Problems Medical Problems: (1) Acute kidney injury superimposed on CKD Status: Acute (2) Blood loss anemia Status: Acute (3) Diverticulosis Status: Chronic (4) DM2 (diabetes mellitus, type 2) Status: Chronic (5) HLD (hyperlipidemia) Status: Chronic (6) HTN (hypertension) Status: Chronic (7) Lower GI bleed Status: Acute Comment Review of Relevant I have reviewed the following items russell (where applicable) has been applied. Labs Laboratory Tests Test 03/09/19 12:35 03/09/19 13:00 03/09/19 14:00 03/09/19 21:09 Glucose (Fingerstick) 90 mg/dL (70-99) 96 mg/dL (70-99) White Blood Count 6.0 x10^3/uL (4.0-11.0) Red Blood Count 2.80 x10^6/uL (3.50-5.40) Hemoglobin 8.1 g/dL (12.0-15.5) Hematocrit 25.0 % (36.0-47.0) Mean Corpuscular Volume 89 fL (79-100) Mean Corpuscular Hemoglobin 29 pg (25-35) Mean Corpuscular Hemoglobin Concent 32 g/dL (31-37) Red Cell Distribution Width 16.3 % (11.5-14.5) Platelet Count 162 x10^3/uL (140-400) Sodium Level 137 mmol/L (136-145) Potassium Level 4.3 mmol/L (3.5-5.1) Chloride Level 107 mmol/L (98-107) Carbon Dioxide Level 21 mmol/L (21-32) Anion Gap 9 (6-14) Blood Urea Nitrogen 43 mg/dL (7-20) Creatinine 1.3 mg/dL (0.6-1.0) Estimated GFR (Cockcroft-Gault) 51.5 Glucose Level 102 mg/dL (70-99) Calcium Level 10.1 mg/dL (8.5-10.1) Test 03/10/19 07:24 03/10/19 12:08 03/10/19 13:20 03/10/19 17:02 Glucose (Fingerstick) 107 mg/dL (70-99) 101 mg/dL (70-99) 101 mg/dL (70-99) White Blood Count 4.3 x10^3/uL (4.0-11.0) Red Blood Count 2.17 x10^6/uL (3.50-5.40) Hemoglobin 6.3 g/dL (12.0-15.5) Hematocrit 18.8 % (36.0-47.0) Mean Corpuscular Volume 87 fL (79-100) Mean Corpuscular Hemoglobin 29 pg (25-35) Mean Corpuscular Hemoglobin Concent 34 g/dL (31-37) Red Cell Distribution Width 15.4 % (11.5-14.5) Platelet Count 110 x10^3/uL (140-400) Neutrophils (%) (Auto) 67 % (31-73) Lymphocytes (%) (Auto) 19 % (24-48) Monocytes (%) (Auto) 8 % (0-9) Eosinophils (%) (Auto) 4 % (0-3) Basophils (%) (Auto) 1 % (0-3) Neutrophils # (Auto) 2.9 x10^3/uL (1.8-7.7) Lymphocytes # (Auto) 0.8 x10^3/uL (1.0-4.8) Monocytes # (Auto) 0.3 x10^3/uL (0.0-1.1) Eosinophils # (Auto) 0.2 x10^3/uL (0.0-0.7) Basophils # (Auto) 0.0 x10^3/uL (0.0-0.2) Sodium Level 144 mmol/L (136-145) Potassium Level 4.1 mmol/L (3.5-5.1) Chloride Level 112 mmol/L (98-107) Carbon Dioxide Level 21 mmol/L (21-32) Anion Gap 11 (6-14) Blood Urea Nitrogen 30 mg/dL (7-20) Creatinine 1.2 mg/dL (0.6-1.0) Estimated GFR (Cockcroft-Gault) 56.4 Glucose Level 197 mg/dL (70-99) Calcium Level 9.4 mg/dL (8.5-10.1) Test 03/10/19 20:56 03/11/19 00:05 03/11/19 03:50 03/11/19 07:54 Glucose (Fingerstick) 101 mg/dL (70-99) 119 mg/dL (70-99) White Blood Count 6.0 x10^3/uL (4.0-11.0) 5.5 x10^3/uL (4.0-11.0) Red Blood Count 2.60 x10^6/uL (3.50-5.40) 2.53 x10^6/uL (3.50-5.40) Hemoglobin 7.8 g/dL (12.0-15.5) 7.5 g/dL (12.0-15.5) Hematocrit 22.6 % (36.0-47.0) 21.9 % (36.0-47.0) Mean Corpuscular Volume 87 fL (79-100) 86 fL (79-100) Mean Corpuscular Hemoglobin 30 pg (25-35) 30 pg (25-35) Mean Corpuscular Hemoglobin Concent 34 g/dL (31-37) 34 g/dL (31-37) Red Cell Distribution Width 14.4 % (11.5-14.5) 14.7 % (11.5-14.5) Platelet Count 104 x10^3/uL (140-400) 104 x10^3/uL (140-400) Neutrophils (%) (Auto) 73 % (31-73) Lymphocytes (%) (Auto) 15 % (24-48) Monocytes (%) (Auto) 8 % (0-9) Eosinophils (%) (Auto) 4 % (0-3) Basophils (%) (Auto) 1 % (0-3) Neutrophils # (Auto) 4.0 x10^3/uL (1.8-7.7) Lymphocytes # (Auto) 0.8 x10^3/uL (1.0-4.8) Monocytes # (Auto) 0.4 x10^3/uL (0.0-1.1) Eosinophils # (Auto) 0.2 x10^3/uL (0.0-0.7) Basophils # (Auto) 0.0 x10^3/uL (0.0-0.2) Sodium Level 143 mmol/L (136-145) Potassium Level 3.9 mmol/L (3.5-5.1) Chloride Level 112 mmol/L (98-107) Carbon Dioxide Level 22 mmol/L (21-32) Anion Gap 9 (6-14) Blood Urea Nitrogen 23 mg/dL (7-20) Creatinine 1.0 mg/dL (0.6-1.0) Estimated GFR (Cockcroft-Gault) 69.7 Glucose Level 149 mg/dL (70-99) Calcium Level 9.7 mg/dL (8.5-10.1) Laboratory Tests Test 03/10/19 12:08 03/10/19 13:20 03/10/19 17:02 03/10/19 20:56 Glucose (Fingerstick) 101 mg/dL (70-99) 101 mg/dL (70-99) 101 mg/dL (70-99) White Blood Count 4.3 x10^3/uL (4.0-11.0) Red Blood Count 2.17 x10^6/uL (3.50-5.40) Hemoglobin 6.3 g/dL (12.0-15.5) Hematocrit 18.8 % (36.0-47.0) Mean Corpuscular Volume 87 fL (79-100) Mean Corpuscular Hemoglobin 29 pg (25-35) Mean Corpuscular Hemoglobin Concent 34 g/dL (31-37) Red Cell Distribution Width 15.4 % (11.5-14.5) Platelet Count 110 x10^3/uL (140-400) Neutrophils (%) (Auto) 67 % (31-73) Lymphocytes (%) (Auto) 19 % (24-48) Monocytes (%) (Auto) 8 % (0-9) Eosinophils (%) (Auto) 4 % (0-3) Basophils (%) (Auto) 1 % (0-3) Neutrophils # (Auto) 2.9 x10^3/uL (1.8-7.7) Lymphocytes # (Auto) 0.8 x10^3/uL (1.0-4.8) Monocytes # (Auto) 0.3 x10^3/uL (0.0-1.1) Eosinophils # (Auto) 0.2 x10^3/uL (0.0-0.7) Basophils # (Auto) 0.0 x10^3/uL (0.0-0.2) Sodium Level 144 mmol/L (136-145) Potassium Level 4.1 mmol/L (3.5-5.1) Chloride Level 112 mmol/L (98-107) Carbon Dioxide Level 21 mmol/L (21-32) Anion Gap 11 (6-14) Blood Urea Nitrogen 30 mg/dL (7-20) Creatinine 1.2 mg/dL (0.6-1.0) Estimated GFR (Cockcroft-Gault) 56.4 Glucose Level 197 mg/dL (70-99) Calcium Level 9.4 mg/dL (8.5-10.1) Test 03/11/19 00:05 03/11/19 03:50 03/11/19 07:54 White Blood Count 6.0 x10^3/uL (4.0-11.0) 5.5 x10^3/uL (4.0-11.0) Red Blood Count 2.60 x10^6/uL (3.50-5.40) 2.53 x10^6/uL (3.50-5.40) Hemoglobin 7.8 g/dL (12.0-15.5) 7.5 g/dL (12.0-15.5) Hematocrit 22.6 % (36.0-47.0) 21.9 % (36.0-47.0) Mean Corpuscular Volume 87 fL (79-100) 86 fL (79-100) Mean Corpuscular Hemoglobin 30 pg (25-35) 30 pg (25-35) Mean Corpuscular Hemoglobin Concent 34 g/dL (31-37) 34 g/dL (31-37) Red Cell Distribution Width 14.4 % (11.5-14.5) 14.7 % (11.5-14.5) Platelet Count 104 x10^3/uL (140-400) 104 x10^3/uL (140-400) Neutrophils (%) (Auto) 73 % (31-73) Lymphocytes (%) (Auto) 15 % (24-48) Monocytes (%) (Auto) 8 % (0-9) Eosinophils (%) (Auto) 4 % (0-3) Basophils (%) (Auto) 1 % (0-3) Neutrophils # (Auto) 4.0 x10^3/uL (1.8-7.7) Lymphocytes # (Auto) 0.8 x10^3/uL (1.0-4.8) Monocytes # (Auto) 0.4 x10^3/uL (0.0-1.1) Eosinophils # (Auto) 0.2 x10^3/uL (0.0-0.7) Basophils # (Auto) 0.0 x10^3/uL (0.0-0.2) Sodium Level 143 mmol/L (136-145) Potassium Level 3.9 mmol/L (3.5-5.1) Chloride Level 112 mmol/L (98-107) Carbon Dioxide Level 22 mmol/L (21-32) Anion Gap 9 (6-14) Blood Urea Nitrogen 23 mg/dL (7-20) Creatinine 1.0 mg/dL (0.6-1.0) Estimated GFR (Cockcroft-Gault) 69.7 Glucose Level 149 mg/dL (70-99) Calcium Level 9.7 mg/dL (8.5-10.1) Glucose (Fingerstick) 119 mg/dL (70-99) Medications Current Medications Sodium Chloride 500 ml @ 500 mls/hr Q1H IV Last administered on 03/09/19at 04:33; Start 03/09/19 at 02:15; Stop 03/09/19 at 04:33; Status DC Pantoprazole Sodium (PROTONIX VIAL for IV PUSH) 40 mg 1X ONCE IVP Last administered on 03/09/19at 04:32; Start 03/09/19 at 02:15; Stop 03/09/19 at 02:18; Status DC Ondansetron HCl (Zofran) 4 mg PRN Q8HRS PRN IV NAUSEA/VOMITING; Start 03/09/19 at 03:45; Stop 03/10/19 at 03:44; Status DC Morphine Sulfate (Morphine Sulfate) 2 mg PRN Q2HR PRN IV PAIN; Start 03/09/19 at 03:45; Stop 03/10/19 at 03:44; Status DC Sodium Chloride 1,000 ml @ 150 mls/hr Q6H40M IV Last administered on 03/10/19at 04:03; Start 03/09/19 at 03:45; Stop 03/10/19 at 03:44; Status DC Acetaminophen (Tylenol) 650 mg PRN Q4HRS PRN PO FEVER; Start 03/09/19 at 03:45; Stop 03/10/19 at 03:44; Status DC Iohexol (Omnipaque 240 Mg/ml) 30 ml 1X ONCE PO Last administered on 03/09/19at 04:10; Start 03/09/19 at 04:15; Stop 03/09/19 at 04:16; Status DC Info (CONTRAST GIVEN -- Rx MONITORING) 1 each PRN DAILY PRN MC SEE COMMENTS; Start 03/09/19 at 04:15; Stop 03/11/19 at 04:15; Status DC Albuterol Sulfate (Ventolin Neb Soln) 2.5 mg PRN Q2HRS PRN INH shortness of breath; Start 03/09/19 at 08:45 Isosorbide Mononitrate (Imdur) 30 mg DAILY PO Last administered on 03/11/19at 08:39; Start 03/09/19 at 09:00 Carvedilol (Coreg) 25 mg BIDWMEALS PO Last administered on 03/11/19at 08:38; Start 03/09/19 at 17:00 Citalopram Hydrobromide (CeleXA) 20 mg QHS PO Last administered on 03/10/19at 21:22; Start 03/09/19 at 21:00 Hydralazine HCl (Apresoline) 25 mg [id number] PO Last administered on 03/11/19at 08:38; Start 03/09/19 at 09:00 Hydralazine HCl (Apresoline) 50 mg QHS PO Last administered on 03/10/19at 21:22; Start 03/09/19 at 21:00 Insulin Glargine (Lantus) 15 units QHS SQ ; Start 03/09/19 at 21:00 Latanoprost (Xalatan) 1 drop QHS OS Last administered on 03/10/19at 21:22; Start 03/09/19 at 21:00 Atorvastatin Calcium (Lipitor) 80 mg QHS PO Last administered on 03/10/19at 21:22; Start 03/09/19 at 21:00 Zolpidem Tartrate (Ambien) 5 mg PRN QHS PRN PO INSOMNIA; Start 03/09/19 at 08:45 Insulin Human Lispro (HumaLOG) 0-5 UNITS PRN Q4HRS SQ ; Start 03/09/19 at 08:45; Stop 03/09/19 at 09:13; Status DC Dextrose (Dextrose 50%-Water Syringe) 12.5 gm PRN Q15MIN PRN IV SEE COMMENTS; Start 03/09/19 at 08:45 Pantoprazole Sodium (PROTONIX VIAL for IV PUSH) 40 mg DAILYAC IVP Last administered on 03/11/19at 07:40; Start 03/10/19 at 07:30 Pantoprazole Sodium 80 mg/ Sodium Chloride 100 ml @ 10 mls/hr 1X ONCE IV Last administered on 03/09/19at 09:56; Start 03/09/19 at 10:00; Stop 03/09/19 at 19:59; Status DC Insulin Human Lispro (HumaLOG) 0-5 UNITS PRN Q4HRS PRN SQ BLOOD SUGAR; Start 03/09/19 at 12:00 Heparin Sodium (Porcine) (HEPARIN for NUC MED) 100 unit 1X ONCE IV ; Start 03/09/19 at 16:00; Stop 03/09/19 at 16:01; Status DC Active Scripts Active Reported Vitamin D2 (Ergocalciferol (Vitamin D2)) 50,000 Unit Capsule 1 Cap PO WEEKLY Crestor (Rosuvastatin Calcium) 40 Mg Tablet 1 Tab PO DAILY Irbesartan 300 Mg Tablet 1 Tab PO HS Humulin R (Insulin Regular, Human) 100 Unit/1 Ml Vial 20 Unit IJ [id number] Ozempic (Semaglutide) 0.25 Mg/0.2 Ml Pen.injctr 0.25 Mg SQ WEEKLY Latanoprost 2.5 Ml Drops 1 Drop LEFTEYE QHS Omeprazole 40 Mg Capsule.dr 1 Cap PO DAILY Cyclobenzaprine Hcl 10 Mg Tablet 1 Tab PO TID Hydralazine Hcl 50 Mg Tablet 1 Tab PO HS Spironolactone 25 Mg Tablet 25 Mg PO HS Isosorbide Mononitrate Er (Isosorbide Mononitrate) 30 Mg Tab.er.24h 30 Mg PO DAILY Torsemide 20 Mg Tablet 20 Mg PO DAILY Carvedilol 25 Mg Tablet 1 Tab PO BID Hydralazine Hcl 25 Mg Tablet 1 Tab PO BID92 Escitalopram Oxalate 10 Mg Tablet 10 Mg PO HS Tresiba Flextouch U-100 (Insulin Degludec) 100 Unit/1 Ml Insuln.pen 30 Unit SQ HS Iron Supplement (Ferrous Sulfate) 325 Mg Tablet 1 Tab PO DAILY Ambien (Zolpidem Tartrate) 10 Mg Tablet 10 Mg PO QHS Proair Hfa Inhaler (Albuterol Sulfate) 8.5 Gm Hfa.aer.ad 2 Puff IH PRN Q4-6HRS Metformin Hcl 500 Mg Tablet 500 Mg PO BIDWMEALS Vitals/I & O Vital Sign - Last 24 Hours 03/10/19 03/10/19 03/10/19 03/10/19 11:00 14:05 17:00 17:15 Temp 98.8 98.6 98.6 98.8 98.6 98.6 Pulse 76 78 79 Resp 16 18 20 B/P (MAP) 159/76 (103) 162/74 (103) 163/78 148/68 O2 Delivery Room Air O2 Flow Rate 95.0 03/10/19 03/10/19 03/10/19 03/10/19 17:30 17:45 18:36 18:40 Temp 99.5 99.5 99.5 99.5 99.5 99.5 Pulse 78 77 80 80 Resp 20 20 18 B/P (MAP) 163/66 157/66 147/65 147/65 03/10/19 03/10/19 03/10/19 03/10/19 18:41 19:35 20:00 20:29 Temp 98.4 98.8 98.4 98.8 Pulse 80 86 83 Resp 20 18 B/P (MAP) 147/65 134/53 (80) 119/51 Pulse Ox 99 O2 Delivery Room Air Room Air 03/10/19 03/10/19 03/10/19 03/10/19 21:22 21:35 22:38 22:38 Temp 98.1 98.1 98.1 98.1 98.1 98.1 Pulse 79 80 85 85 Resp 18 18 18 B/P (MAP) 132/57 129/52 116/51 (72) 116/51 Pulse Ox 96 O2 Delivery Room Air 03/10/19 03/11/19 03/11/19 03/11/19 23:39 00:42 02:50 07:00 Temp 98.2 98.4 97.9 98.3 98.2 98.4 97.9 98.3 Pulse 82 83 83 96 Resp 16 16 20 16 B/P (MAP) 142/65 153/64 159/79 (105) 166/79 (108) Pulse Ox 98 100 O2 Delivery Room Air Room Air 03/11/19 03/11/19 03/11/19/30/19 07:59 08:38 08:38 08:39 Pulse 96 96 96 B/P (MAP) 166/79 166/79 166/79 O2 Delivery Room Air Intake and Output 03/10/19 03/10/19 03/11/19 14:59 22:59 06:59 Intake Total 1440 ml 405 ml 50 ml Output Total 1200 ml 400 ml 500 ml Balance 240 ml 5 ml -450 ml ROBERT KELLER MD Mar 11, 2019 10:53
--- NOTE | 2019-03-11 11:40 | PDOC ---
G I PROGRESS NOTE Subjective No bleeding since last night. Some non-specific LQ discomfort. No dysuria. Physical Exam Lungs clear. RRR Abdomen soft, not distended. Mild nearly suprapubic tenderness. Review of Relevant I have reviewed the following items russell (where applicable) has been applied. Labs Laboratory Tests Test 03/09/19 12:35 03/09/19 13:00 03/09/19 14:00 03/09/19 21:09 Glucose (Fingerstick) 90 mg/dL (70-99) 96 mg/dL (70-99) White Blood Count 6.0 x10^3/uL (4.0-11.0) Red Blood Count 2.80 x10^6/uL (3.50-5.40) Hemoglobin 8.1 g/dL (12.0-15.5) Hematocrit 25.0 % (36.0-47.0) Mean Corpuscular Volume 89 fL (79-100) Mean Corpuscular Hemoglobin 29 pg (25-35) Mean Corpuscular Hemoglobin Concent 32 g/dL (31-37) Red Cell Distribution Width 16.3 % (11.5-14.5) Platelet Count 162 x10^3/uL (140-400) Sodium Level 137 mmol/L (136-145) Potassium Level 4.3 mmol/L (3.5-5.1) Chloride Level 107 mmol/L (98-107) Carbon Dioxide Level 21 mmol/L (21-32) Anion Gap 9 (6-14) Blood Urea Nitrogen 43 mg/dL (7-20) Creatinine 1.3 mg/dL (0.6-1.0) Estimated GFR (Cockcroft-Gault) 51.5 Glucose Level 102 mg/dL (70-99) Calcium Level 10.1 mg/dL (8.5-10.1) Test 03/10/19 07:24 03/10/19 12:08 03/10/19 13:20 03/10/19 17:02 Glucose (Fingerstick) 107 mg/dL (70-99) 101 mg/dL (70-99) 101 mg/dL (70-99) White Blood Count 4.3 x10^3/uL (4.0-11.0) Red Blood Count 2.17 x10^6/uL (3.50-5.40) Hemoglobin 6.3 g/dL (12.0-15.5) Hematocrit 18.8 % (36.0-47.0) Mean Corpuscular Volume 87 fL (79-100) Mean Corpuscular Hemoglobin 29 pg (25-35) Mean Corpuscular Hemoglobin Concent 34 g/dL (31-37) Red Cell Distribution Width 15.4 % (11.5-14.5) Platelet Count 110 x10^3/uL (140-400) Neutrophils (%) (Auto) 67 % (31-73) Lymphocytes (%) (Auto) 19 % (24-48) Monocytes (%) (Auto) 8 % (0-9) Eosinophils (%) (Auto) 4 % (0-3) Basophils (%) (Auto) 1 % (0-3) Neutrophils # (Auto) 2.9 x10^3/uL (1.8-7.7) Lymphocytes # (Auto) 0.8 x10^3/uL (1.0-4.8) Monocytes # (Auto) 0.3 x10^3/uL (0.0-1.1) Eosinophils # (Auto) 0.2 x10^3/uL (0.0-0.7) Basophils # (Auto) 0.0 x10^3/uL (0.0-0.2) Sodium Level 144 mmol/L (136-145) Potassium Level 4.1 mmol/L (3.5-5.1) Chloride Level 112 mmol/L (98-107) Carbon Dioxide Level 21 mmol/L (21-32) Anion Gap 11 (6-14) Blood Urea Nitrogen 30 mg/dL (7-20) Creatinine 1.2 mg/dL (0.6-1.0) Estimated GFR (Cockcroft-Gault) 56.4 Glucose Level 197 mg/dL (70-99) Calcium Level 9.4 mg/dL (8.5-10.1) Test 03/10/19 20:56 03/11/19 00:05 03/11/19 03:50 03/11/19 07:54 Glucose (Fingerstick) 101 mg/dL (70-99) 119 mg/dL (70-99) White Blood Count 6.0 x10^3/uL (4.0-11.0) 5.5 x10^3/uL (4.0-11.0) Red Blood Count 2.60 x10^6/uL (3.50-5.40) 2.53 x10^6/uL (3.50-5.40) Hemoglobin 7.8 g/dL (12.0-15.5) 7.5 g/dL (12.0-15.5) Hematocrit 22.6 % (36.0-47.0) 21.9 % (36.0-47.0) Mean Corpuscular Volume 87 fL (79-100) 86 fL (79-100) Mean Corpuscular Hemoglobin 30 pg (25-35) 30 pg (25-35) Mean Corpuscular Hemoglobin Concent 34 g/dL (31-37) 34 g/dL (31-37) Red Cell Distribution Width 14.4 % (11.5-14.5) 14.7 % (11.5-14.5) Platelet Count 104 x10^3/uL (140-400) 104 x10^3/uL (140-400) Neutrophils (%) (Auto) 73 % (31-73) Lymphocytes (%) (Auto) 15 % (24-48) Monocytes (%) (Auto) 8 % (0-9) Eosinophils (%) (Auto) 4 % (0-3) Basophils (%) (Auto) 1 % (0-3) Neutrophils # (Auto) 4.0 x10^3/uL (1.8-7.7) Lymphocytes # (Auto) 0.8 x10^3/uL (1.0-4.8) Monocytes # (Auto) 0.4 x10^3/uL (0.0-1.1) Eosinophils # (Auto) 0.2 x10^3/uL (0.0-0.7) Basophils # (Auto) 0.0 x10^3/uL (0.0-0.2) Sodium Level 143 mmol/L (136-145) Potassium Level 3.9 mmol/L (3.5-5.1) Chloride Level 112 mmol/L (98-107) Carbon Dioxide Level 22 mmol/L (21-32) Anion Gap 9 (6-14) Blood Urea Nitrogen 23 mg/dL (7-20) Creatinine 1.0 mg/dL (0.6-1.0) Estimated GFR (Cockcroft-Gault) 69.7 Glucose Level 149 mg/dL (70-99) Calcium Level 9.7 mg/dL (8.5-10.1) Laboratory Tests Test 03/10/19 12:08 03/10/19 13:20 03/10/19 17:02 03/10/19 20:56 Glucose (Fingerstick) 101 mg/dL (70-99) 101 mg/dL (70-99) 101 mg/dL (70-99) White Blood Count 4.3 x10^3/uL (4.0-11.0) Red Blood Count 2.17 x10^6/uL (3.50-5.40) Hemoglobin 6.3 g/dL (12.0-15.5) Hematocrit 18.8 % (36.0-47.0) Mean Corpuscular Volume 87 fL (79-100) Mean Corpuscular Hemoglobin 29 pg (25-35) Mean Corpuscular Hemoglobin Concent 34 g/dL (31-37) Red Cell Distribution Width 15.4 % (11.5-14.5) Platelet Count 110 x10^3/uL (140-400) Neutrophils (%) (Auto) 67 % (31-73) Lymphocytes (%) (Auto) 19 % (24-48) Monocytes (%) (Auto) 8 % (0-9) Eosinophils (%) (Auto) 4 % (0-3) Basophils (%) (Auto) 1 % (0-3) Neutrophils # (Auto) 2.9 x10^3/uL (1.8-7.7) Lymphocytes # (Auto) 0.8 x10^3/uL (1.0-4.8) Monocytes # (Auto) 0.3 x10^3/uL (0.0-1.1) Eosinophils # (Auto) 0.2 x10^3/uL (0.0-0.7) Basophils # (Auto) 0.0 x10^3/uL (0.0-0.2) Sodium Level 144 mmol/L (136-145) Potassium Level 4.1 mmol/L (3.5-5.1) Chloride Level 112 mmol/L (98-107) Carbon Dioxide Level 21 mmol/L (21-32) Anion Gap 11 (6-14) Blood Urea Nitrogen 30 mg/dL (7-20) Creatinine 1.2 mg/dL (0.6-1.0) Estimated GFR (Cockcroft-Gault) 56.4 Glucose Level 197 mg/dL (70-99) Calcium Level 9.4 mg/dL (8.5-10.1) Test 03/11/19 00:05 03/11/19 03:50 03/11/19 07:54 White Blood Count 6.0 x10^3/uL (4.0-11.0) 5.5 x10^3/uL (4.0-11.0) Red Blood Count 2.60 x10^6/uL (3.50-5.40) 2.53 x10^6/uL (3.50-5.40) Hemoglobin 7.8 g/dL (12.0-15.5) 7.5 g/dL (12.0-15.5) Hematocrit 22.6 % (36.0-47.0) 21.9 % (36.0-47.0) Mean Corpuscular Volume 87 fL (79-100) 86 fL (79-100) Mean Corpuscular Hemoglobin 30 pg (25-35) 30 pg (25-35) Mean Corpuscular Hemoglobin Concent 34 g/dL (31-37) 34 g/dL (31-37) Red Cell Distribution Width 14.4 % (11.5-14.5) 14.7 % (11.5-14.5) Platelet Count 104 x10^3/uL (140-400) 104 x10^3/uL (140-400) Neutrophils (%) (Auto) 73 % (31-73) Lymphocytes (%) (Auto) 15 % (24-48) Monocytes (%) (Auto) 8 % (0-9) Eosinophils (%) (Auto) 4 % (0-3) Basophils (%) (Auto) 1 % (0-3) Neutrophils # (Auto) 4.0 x10^3/uL (1.8-7.7) Lymphocytes # (Auto) 0.8 x10^3/uL (1.0-4.8) Monocytes # (Auto) 0.4 x10^3/uL (0.0-1.1) Eosinophils # (Auto) 0.2 x10^3/uL (0.0-0.7) Basophils # (Auto) 0.0 x10^3/uL (0.0-0.2) Sodium Level 143 mmol/L (136-145) Potassium Level 3.9 mmol/L (3.5-5.1) Chloride Level 112 mmol/L (98-107) Carbon Dioxide Level 22 mmol/L (21-32) Anion Gap 9 (6-14) Blood Urea Nitrogen 23 mg/dL (7-20) Creatinine 1.0 mg/dL (0.6-1.0) Estimated GFR (Cockcroft-Gault) 69.7 Glucose Level 149 mg/dL (70-99) Calcium Level 9.7 mg/dL (8.5-10.1) Glucose (Fingerstick) 119 mg/dL (70-99) Hemoglobin stable within lab's error of measurement. Vitals/I & O Vital Sign - Last 24 Hours 03/10/19 03/10/19 03/10/19 03/10/19 14:05 17:00 17:15 17:30 Temp 98.6 98.6 99.5 98.6 98.6 99.5 Pulse 78 79 78 Resp 18 20 20 B/P (MAP) 162/74 (103) 163/78 148/68 163/66 03/10/19 03/10/19 03/10/19 03/10/19 17:45 18:36 18:40 18:41 Temp 99.5 99.5 99.5 99.5 Pulse 77 80 80 80 Resp 20 18 B/P (MAP) 157/66 147/65 147/65 147/65 03/10/19 03/10/19 03/10/19 03/10/19 19:35 20:00 20:29 21:22 Temp 98.4 98.8 98.4 98.8 Pulse 86 83 79 Resp 20 18 B/P (MAP) 134/53 (80) 119/51 132/57 Pulse Ox 99 O2 Delivery Room Air Room Air 03/10/19 03/10/19 03/10/19 03/10/19 21:35 22:38 22:38 23:39 Temp 98.1 98.1 98.1 98.2 98.1 98.1 98.1 98.2 Pulse 80 85 85 82 Resp 18 18 18 16 B/P (MAP) 129/52 116/51 (72) 116/51 142/65 Pulse Ox 96 O2 Delivery Room Air 03/11/19 03/11/19 03/11/19 03/11/19 00:42 02:50 07:00 07:59 Temp 98.4 97.9 98.3 98.4 97.9 98.3 Pulse 83 83 96 Resp 16 20 16 B/P (MAP) 153/64 159/79 (105) 166/79 (108) Pulse Ox 98 100 O2 Delivery Room Air Room Air Room Air 03/11/19 03/11/19 03/11/19 08:38 08:38 08:39 Pulse 96 96 96 B/P (MAP) 166/79 166/79 166/79 Intake and Output 03/10/19 03/10/19 03/11/19 14:59 22:59 06:59 Intake Total 1440 ml 405 ml 50 ml Output Total 1200 ml 400 ml 500 ml Balance 240 ml 5 ml -450 ml Problem List Problems Medical Problems: (1) Acute kidney injury superimposed on CKD Status: Acute (2) Blood loss anemia Status: Acute (3) Diverticulosis Status: Chronic (4) DM2 (diabetes mellitus, type 2) Status: Chronic (5) HLD (hyperlipidemia) Status: Chronic (6) HTN (hypertension) Status: Chronic (7) Lower GI bleed Status: Acute Assessment Hematochezia, likely diverticular bleed. Seems w/o bleeding currently. Plan of Care Note Continue clears, observation. Explained to her than majority of patients in this situation will ultimately stop w/o intervention and she has been hemodynamically stable throughout. SYL BARNEY MD Mar 11, 2019 11:40
[2019-03-11 16:18] LABS: HEMATOCRIT 21.3 % (36.0-47.0); HEMOGLOBIN 7.3 g/dL (12.0-15.5); RED BLOOD COUNT 2.46 x10^6/uL (3.50-5.40); RED CELL DISTRIBUTION WIDTH 14.3 % (11.5-14.5)
[2019-03-11] MEDS: CITALOPRAM 20 MG TABLET. PO SCH (22:12)
[2019-03-11] MEDS: ATORVASTATIN CALCIUM 40 MG TABLET. PO SCH (22:12)
[2019-03-11] MEDS: LATANOPROST 0.005% OPHTH SOLUTION 2.5ML BOTTLE. OS SCH (22:12)
[2019-03-11] MEDS: ZOLPIDEM 5 MG TABLET. PO PRN (22:12)
[2019-03-11] MEDS: INSULIN GLARGINE 300 UNITS/3 ML INSULN.PEN. SQ SCH (22:25)
[2019-03-12 03:00] VITALS: BP 157/73
[2019-03-12 04:54] LABS: BASO % 1 % (0-3); EOS # 0.2 x10^3/uL (0.0-0.7); EOS % 4 % (0-3); HEMATOCRIT 21.1 % (36.0-47.0); HEMOGLOBIN 7.3 g/dL (12.0-15.5); LYMPH # 0.7 x10^3/uL (1.0-4.8); LYMPH % 14 % (24-48); MEAN CORPUSCULAR HEMOGLOBIN 30 pg (25-35); MEAN CORPUSCULAR HGB CONC 34 g/dL (31-37); MEAN CORPUSCULAR VOLUME 87 fL (79-100); MONO # 0.4 x10^3/uL (0.0-1.1); MONO % 8 % (0-9); NEUT # 3.7 x10^3/uL (1.8-7.7); NEUT % 74 % (31-73); PLATELET COUNT 120 x10^3/uL (140-400); RED BLOOD COUNT 2.43 x10^6/uL (3.50-5.40); RED CELL DISTRIBUTION WIDTH 14.6 % (11.5-14.5)
[2019-03-12 07:34] VITALS: BP 178/73
[2019-03-12] MEDS: ISOSORBIDE MONONITRATE ER 30 MG TAB.ER.24H PO SCH (08:34)
[2019-03-12] MEDS: CARVEDILOL 12.5 MG TABLET. PO SCH ×2 (08:34→17:50)
[2019-03-12] MEDS: hydrALAZINE 25 MG TABLET PO SCH ×2 (08:34→15:12)
[2019-03-12] MEDS: PANTOPRAZOLE IV PUSH 40 MG VIAL. IVP SCH (08:35)
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
[2019-03-12 10:49] VITALS: BP 134/59
--- NOTE | 2019-03-12 10:57 | PDOC ---
G I PROGRESS NOTE Subjective Passed small clot and some blood on TP after. Having some cramping. Physical Exam Lungs clear. RRR Abdomen soft, not distended. Mild, non-specific tenderness LQ's. Review of Relevant I have reviewed the following items russell (where applicable) has been applied. Labs Laboratory Tests Test 03/10/19 12:08 03/10/19 13:20 03/10/19 17:02 03/10/19 20:56 Glucose (Fingerstick) 101 mg/dL (70-99) 101 mg/dL (70-99) 101 mg/dL (70-99) White Blood Count 4.3 x10^3/uL (4.0-11.0) Red Blood Count 2.17 x10^6/uL (3.50-5.40) Hemoglobin 6.3 g/dL (12.0-15.5) Hematocrit 18.8 % (36.0-47.0) Mean Corpuscular Volume 87 fL (79-100) Mean Corpuscular Hemoglobin 29 pg (25-35) Mean Corpuscular Hemoglobin Concent 34 g/dL (31-37) Red Cell Distribution Width 15.4 % (11.5-14.5) Platelet Count 110 x10^3/uL (140-400) Neutrophils (%) (Auto) 67 % (31-73) Lymphocytes (%) (Auto) 19 % (24-48) Monocytes (%) (Auto) 8 % (0-9) Eosinophils (%) (Auto) 4 % (0-3) Basophils (%) (Auto) 1 % (0-3) Neutrophils # (Auto) 2.9 x10^3/uL (1.8-7.7) Lymphocytes # (Auto) 0.8 x10^3/uL (1.0-4.8) Monocytes # (Auto) 0.3 x10^3/uL (0.0-1.1) Eosinophils # (Auto) 0.2 x10^3/uL (0.0-0.7) Basophils # (Auto) 0.0 x10^3/uL (0.0-0.2) Sodium Level 144 mmol/L (136-145) Potassium Level 4.1 mmol/L (3.5-5.1) Chloride Level 112 mmol/L (98-107) Carbon Dioxide Level 21 mmol/L (21-32) Anion Gap 11 (6-14) Blood Urea Nitrogen 30 mg/dL (7-20) Creatinine 1.2 mg/dL (0.6-1.0) Estimated GFR (Cockcroft-Gault) 56.4 Glucose Level 197 mg/dL (70-99) Calcium Level 9.4 mg/dL (8.5-10.1) Test 03/11/19 00:05 03/11/19 03:50 03/11/19 07:54 03/11/19 16:05 White Blood Count 6.0 x10^3/uL (4.0-11.0) 5.5 x10^3/uL (4.0-11.0) 6.0 x10^3/uL (4.0-11.0) Red Blood Count 2.60 x10^6/uL (3.50-5.40) 2.53 x10^6/uL (3.50-5.40) 2.46 x10^6/uL (3.50-5.40) Hemoglobin 7.8 g/dL (12.0-15.5) 7.5 g/dL (12.0-15.5) 7.3 g/dL (12.0-15.5) Hematocrit 22.6 % (36.0-47.0) 21.9 % (36.0-47.0) 21.3 % (36.0-47.0) Mean Corpuscular Volume 87 fL (79-100) 86 fL (79-100) 87 fL (79-100) Mean Corpuscular Hemoglobin 30 pg (25-35) 30 pg (25-35) 30 pg (25-35) Mean Corpuscular Hemoglobin Concent 34 g/dL (31-37) 34 g/dL (31-37) 34 g/dL (31-37) Red Cell Distribution Width 14.4 % (11.5-14.5) 14.7 % (11.5-14.5) 14.3 % (11.5-14.5) Platelet Count 104 x10^3/uL (140-400) 104 x10^3/uL (140-400) 115 x10^3/uL (140-400) Neutrophils (%) (Auto) 73 % (31-73) Lymphocytes (%) (Auto) 15 % (24-48) Monocytes (%) (Auto) 8 % (0-9) Eosinophils (%) (Auto) 4 % (0-3) Basophils (%) (Auto) 1 % (0-3) Neutrophils # (Auto) 4.0 x10^3/uL (1.8-7.7) Lymphocytes # (Auto) 0.8 x10^3/uL (1.0-4.8) Monocytes # (Auto) 0.4 x10^3/uL (0.0-1.1) Eosinophils # (Auto) 0.2 x10^3/uL (0.0-0.7) Basophils # (Auto) 0.0 x10^3/uL (0.0-0.2) Sodium Level 143 mmol/L (136-145) Potassium Level 3.9 mmol/L (3.5-5.1) Chloride Level 112 mmol/L (98-107) Carbon Dioxide Level 22 mmol/L (21-32) Anion Gap 9 (6-14) Blood Urea Nitrogen 23 mg/dL (7-20) Creatinine 1.0 mg/dL (0.6-1.0) Estimated GFR (Cockcroft-Gault) 69.7 Glucose Level 149 mg/dL (70-99) Calcium Level 9.7 mg/dL (8.5-10.1) Glucose (Fingerstick) 119 mg/dL (70-99) Test 03/11/19 22:18 03/11/19 22:20 03/12/19 04:15 03/12/19 07:00 Glucose (Fingerstick) 163 mg/dL (70-99) 157 mg/dL (70-99) 117 mg/dL (70-99) White Blood Count 5.0 x10^3/uL (4.0-11.0) Red Blood Count 2.43 x10^6/uL (3.50-5.40) Hemoglobin 7.3 g/dL (12.0-15.5) Hematocrit 21.1 % (36.0-47.0) Mean Corpuscular Volume 87 fL (79-100) Mean Corpuscular Hemoglobin 30 pg (25-35) Mean Corpuscular Hemoglobin Concent 34 g/dL (31-37) Red Cell Distribution Width 14.6 % (11.5-14.5) Platelet Count 120 x10^3/uL (140-400) Neutrophils (%) (Auto) 74 % (31-73) Lymphocytes (%) (Auto) 14 % (24-48) Monocytes (%) (Auto) 8 % (0-9) Eosinophils (%) (Auto) 4 % (0-3) Basophils (%) (Auto) 1 % (0-3) Neutrophils # (Auto) 3.7 x10^3/uL (1.8-7.7) Lymphocytes # (Auto) 0.7 x10^3/uL (1.0-4.8) Monocytes # (Auto) 0.4 x10^3/uL (0.0-1.1) Eosinophils # (Auto) 0.2 x10^3/uL (0.0-0.7) Basophils # (Auto) 0.0 x10^3/uL (0.0-0.2) Laboratory Tests Test 03/11/19 16:05 03/11/19 22:18 03/11/19 22:20 03/12/19 04:15 White Blood Count 6.0 x10^3/uL (4.0-11.0) 5.0 x10^3/uL (4.0-11.0) Red Blood Count 2.46 x10^6/uL (3.50-5.40) 2.43 x10^6/uL (3.50-5.40) Hemoglobin 7.3 g/dL (12.0-15.5) 7.3 g/dL (12.0-15.5) Hematocrit 21.3 % (36.0-47.0) 21.1 % (36.0-47.0) Mean Corpuscular Volume 87 fL (79-100) 87 fL (79-100) Mean Corpuscular Hemoglobin 30 pg (25-35) 30 pg (25-35) Mean Corpuscular Hemoglobin Concent 34 g/dL (31-37) 34 g/dL (31-37) Red Cell Distribution Width 14.3 % (11.5-14.5) 14.6 % (11.5-14.5) Platelet Count 115 x10^3/uL (140-400) 120 x10^3/uL (140-400) Glucose (Fingerstick) 163 mg/dL (70-99) 157 mg/dL (70-99) Neutrophils (%) (Auto) 74 % (31-73) Lymphocytes (%) (Auto) 14 % (24-48) Monocytes (%) (Auto) 8 % (0-9) Eosinophils (%) (Auto) 4 % (0-3) Basophils (%) (Auto) 1 % (0-3) Neutrophils # (Auto) 3.7 x10^3/uL (1.8-7.7) Lymphocytes # (Auto) 0.7 x10^3/uL (1.0-4.8) Monocytes # (Auto) 0.4 x10^3/uL (0.0-1.1) Eosinophils # (Auto) 0.2 x10^3/uL (0.0-0.7) Basophils # (Auto) 0.0 x10^3/uL (0.0-0.2) Test 03/12/19 07:00 Glucose (Fingerstick) 117 mg/dL (70-99) Hemoglobin stable. Vitals/I & O Vital Sign - Last 24 Hours 03/11/19 03/11/19 03/11/19 03/11/19 11:00 15:00 15:06 17:30 Temp 98.0 98.9 98.0 98.9 Pulse 78 79 69 69 Resp 18 16 B/P (MAP) 149/66 (93) 176/78 (110) 166/79 166/79 Pulse Ox 99 97 O2 Delivery Room Air Room Air 03/11/19 03/11/19 03/11/19 03/11/19 19:05 20:00 22:11 23:07 Temp 98.4 97.6 98.4 97.6 Pulse 68 68 115 Resp 20 20 B/P (MAP) 165/75 (105) 165/75 118/77 (91) Pulse Ox 98 97 O2 Delivery Room Air Room Air Room Air 03/11/19 03/12/19 03/12/19 03/12/19 23:10 03:00 07:34 08:00 Temp 97.6 98.6 98.7 97.6 98.6 98.7 Pulse 76 70 75 Resp 20 20 20 B/P (MAP) 163/69 (100) 157/73 (101) 178/73 (108) Pulse Ox 97 96 96 O2 Delivery Room Air Room Air Room Air Room Air 03/12/19 03/12/19 03/12/19 03/12/19 08:09 08:34 08:34 08:34 Pulse 75 75 75 B/P (MAP) 178/73 178/73 178/73 Pulse Ox 96 O2 Delivery Room Air 03/12/19 10:49 Temp 97.5 97.5 Pulse 80 Resp 20 B/P (MAP) 134/59 (84) Pulse Ox 98 O2 Delivery Room Air Intake and Output 0 03/11/19 03/11/19 03/12/19 14:59 22:59 06:59 Intake Total 1100 ml Output Total 500 ml 700 ml 750 ml Balance -500 ml -700 ml 350 ml Problem List Problems Medical Problems: (1) Acute kidney injury superimposed on CKD Status: Acute (2) Blood loss anemia Status: Acute (3) Diverticulosis Status: Chronic (4) DM2 (diabetes mellitus, type 2) Status: Chronic (5) HLD (hyperlipidemia) Status: Chronic (6) HTN (hypertension) Status: Chronic (7) Lower GI bleed Status: Acute Assessment Likely diverticular bleed, seems probably stopped, but unclear. Plan of Care Note Continue miguel, observe. SYL BARNEY MD Mar 12, 2019 10:57
--- NOTE | 2019-03-12 11:06 | NUR ---
SS following up with discharge planning. Pt is currently on room air. PT recommending home with assistance. No discharge needs noted at this time. SS will continue to follow for discharge planning.
[2019-03-12 14:34] VITALS: BP 148/47
--- NOTE | 2019-03-12 15:36 | PDOC ---
[employer] PROGRESS NOTE Chief Complaint Chief Complaint Lower GI bleed - likely diverticular. 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 History of Present Illness History of Present Illness 03/12/19 Pt seen and examined Pt sitting in bed Pt tolerate foods PO Hgb trending up (6.3, 7.3 today) Plt trending up (104, 115, 120 today) DW family Vitals/I&O Vitals/I&O: Vital Signs Date Time Temp Pulse Resp B/P (MAP) Pulse Ox O2 Delivery O2 Flow Rate FiO2 03/12/19 15:12 71 148/47 03/12/19 14:34 98.9 20 96 Room Air 98.9 I & O 03/11/19 03/11/19 03/12/19 14:59 22:59 06:59 Intake Total 1100 ml Output Total 500 ml 700 ml 750 ml Balance -500 ml -700 ml 350 ml Physical Exam General: Alert, Oriented X3, Cooperative, No acute distress Lungs: Clear Abdomen: Normal bowel sounds, Soft, No tenderness, No hepatosplenomegaly, No masses Extremities: No clubbing, No cyanosis, No edema, Normal pulses, No tenderness/swelling Skin: No rashes, No breakdown, No significant lesion Labs Labs: Laboratory Tests Test 03/11/19 16:05 03/11/19 22:18 03/11/19 22:20 03/12/19 04:15 White Blood Count 6.0 x10^3/uL (4.0-11.0) 5.0 x10^3/uL (4.0-11.0) Red Blood Count 2.46 x10^6/uL (3.50-5.40) 2.43 x10^6/uL (3.50-5.40) Hemoglobin 7.3 g/dL (12.0-15.5) 7.3 g/dL (12.0-15.5) Hematocrit 21.3 % (36.0-47.0) 21.1 % (36.0-47.0) Mean Corpuscular Volume 87 fL (79-100) 87 fL (79-100) Mean Corpuscular Hemoglobin 30 pg (25-35) 30 pg (25-35) Mean Corpuscular Hemoglobin Concent 34 g/dL (31-37) 34 g/dL (31-37) Red Cell Distribution Width 14.3 % (11.5-14.5) 14.6 % (11.5-14.5) Platelet Count 115 x10^3/uL (140-400) 120 x10^3/uL (140-400) Glucose (Fingerstick) 163 mg/dL (70-99) 157 mg/dL (70-99) Neutrophils (%) (Auto) 74 % (31-73) Lymphocytes (%) (Auto) 14 % (24-48) Monocytes (%) (Auto) 8 % (0-9) Eosinophils (%) (Auto) 4 % (0-3) Basophils (%) (Auto) 1 % (0-3) Neutrophils # (Auto) 3.7 x10^3/uL (1.8-7.7) Lymphocytes # (Auto) 0.7 x10^3/uL (1.0-4.8) Monocytes # (Auto) 0.4 x10^3/uL (0.0-1.1) Eosinophils # (Auto) 0.2 x10^3/uL (0.0-0.7) Basophils # (Auto) 0.0 x10^3/uL (0.0-0.2) Test 03/12/19 07:00 03/12/19 11:37 Glucose (Fingerstick) 117 mg/dL (70-99) 126 mg/dL (70-99) Review of Systems Review of Systems: CO fatigue CO abdominal pain Assessment and Plan Assessmemt and Plan Problems Medical Problems: (1) Acute kidney injury superimposed on CKD Status: Acute (2) Blood loss anemia Status: Acute (3) Diverticulosis Status: Chronic (4) DM2 (diabetes mellitus, type 2) Status: Chronic (5) HLD (hyperlipidemia) Status: Chronic (6) HTN (hypertension) Status: Chronic (7) Lower GI bleed Status: Acute 03/12/19 Assessment Lower GI bleed - likely diverticular. 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 Plan Cardiac monitoring Trend Hgb Appreciate subspecialist input CCD hope to advance Home meds DVT prophylaxis Full code Comment Review of Relevant I have reviewed the following items russell (where applicable) has been applied. SABINA CH III DO Mar 12, 2019 15:36
[2019-03-12 19:00] VITALS: BP 148/70
[2019-03-12] MEDS: ATORVASTATIN CALCIUM 40 MG TABLET. PO SCH (21:18)
[2019-03-12] MEDS: ZOLPIDEM 5 MG TABLET. PO PRN (21:19)
[2019-03-12] MEDS: CITALOPRAM 20 MG TABLET. PO SCH (21:19)
[2019-03-12] MEDS: LATANOPROST 0.005% OPHTH SOLUTION 2.5ML BOTTLE. OS SCH (21:30)
[2019-03-12] MEDS: INSULIN GLARGINE 300 UNITS/3 ML INSULN.PEN. SQ SCH (21:32)
[2019-03-12 23:00] VITALS: BP 134/67
[2019-03-13] VITALS (16 sets, daily range): BP systolic 118–202; BP diastolic 46–84
[2019-03-13 06:38] LABS: BASO % 1 % (0-3); EOS # 0.1 x10^3/uL (0.0-0.7); EOS % 2 % (0-3); LYMPH # 0.5 x10^3/uL (1.0-4.8); LYMPH % 11 % (24-48); MEAN CORPUSCULAR HEMOGLOBIN 30 pg (25-35); MEAN CORPUSCULAR HGB CONC 35 g/dL (31-37); MEAN CORPUSCULAR VOLUME 88 fL (79-100); MONO # 0.4 x10^3/uL (0.0-1.1); MONO % 9 % (0-9); NEUT # 3.7 x10^3/uL (1.8-7.7); NEUT % 77 % (31-73); PLATELET COUNT 118 x10^3/uL (140-400); RED CELL DISTRIBUTION WIDTH 14.4 % (11.5-14.5); WHITE BLOOD COUNT 4.8 x10^3/uL (4.0-11.0)
[2019-03-13 06:47] LABS: HEMATOCRIT 19.3 % (36.0-47.0); HEMOGLOBIN 6.7 g/dL (12.0-15.5)
[2019-03-13] MEDS: ISOSORBIDE MONONITRATE ER 30 MG TAB.ER.24H PO SCH (08:42)
[2019-03-13] MEDS: hydrALAZINE 25 MG TABLET PO SCH ×2 (08:42→13:26)
[2019-03-13] MEDS: CARVEDILOL 12.5 MG TABLET. PO SCH ×2 (08:42→17:18)
[2019-03-13] MEDS: PANTOPRAZOLE IV PUSH 40 MG VIAL. IVP SCH (08:43)
--- NOTE | 2019-03-13 10:52 | PDOC ---
[employer] PROGRESS NOTE Chief Complaint Chief Complaint Lower GI bleed - likely diverticular. 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 History of Present Illness History of Present Illness 03/13/19 Pt seen and examined Pt tolerating foods PO Hgb trending down from yesterday (7.3, 6.3 today) VSS DW pt and family at length 03/12/19 Pt seen and examined Pt sitting in bed Pt tolerate foods PO Hgb trending up (6.3, 7.3 today) Plt trending up (104, 115, 120 today) DW family Vitals/I&O Vitals/I&O: Vital Signs Date Time Temp Pulse Resp B/P (MAP) Pulse Ox O2 Delivery O2 Flow Rate FiO2 03/13/19 08:42 75 151/71 03/13/19 08:05 Room Air 03/13/19 07:56 99.4 16 100 99.4 I & O 03/12/19 03/12/19 03/13/19 15:00 23:00 07:00 Intake Total 500 ml 150 ml Output Total 380 ml 300 ml Balance 120 ml -150 ml Physical Exam General: Alert, Oriented X3, Cooperative, No acute distress Lungs: Clear Abdomen: Normal bowel sounds, Soft, No tenderness, No hepatosplenomegaly, No masses Extremities: No clubbing, No cyanosis, No edema, Normal pulses, No tenderness/swelling Skin: No rashes, No breakdown, No significant lesion Labs Labs: Laboratory Tests Test 03/12/19 11:37 03/12/19 16:40 03/12/19 20:37 03/13/19 06:00 Glucose (Fingerstick) 126 mg/dL (70-99) 88 mg/dL (70-99) 178 mg/dL (70-99) White Blood Count 4.8 x10^3/uL (4.0-11.0) Red Blood Count 2.20 x10^6/uL (3.50-5.40) Hemoglobin 6.7 g/dL (12.0-15.5) Hematocrit 19.3 % (36.0-47.0) Mean Corpuscular Volume 88 fL (79-100) Mean Corpuscular Hemoglobin 30 pg (25-35) Mean Corpuscular Hemoglobin Concent 35 g/dL (31-37) Red Cell Distribution Width 14.4 % (11.5-14.5) Platelet Count 118 x10^3/uL (140-400) Neutrophils (%) (Auto) 77 % (31-73) Lymphocytes (%) (Auto) 11 % (24-48) Monocytes (%) (Auto) 9 % (0-9) Eosinophils (%) (Auto) 2 % (0-3) Basophils (%) (Auto) 1 % (0-3) Neutrophils # (Auto) 3.7 x10^3/uL (1.8-7.7) Lymphocytes # (Auto) 0.5 x10^3/uL (1.0-4.8) Monocytes # (Auto) 0.4 x10^3/uL (0.0-1.1) Eosinophils # (Auto) 0.1 x10^3/uL (0.0-0.7) Basophils # (Auto) 0.0 x10^3/uL (0.0-0.2) Iron Level 21 ug/dL (50-170) Total Iron Binding Capacity 203 ug/dL (250-450) Iron Saturation 10 % (15-34) Ferritin 250 ng/mL (8-252) Test 03/13/19 07:31 Glucose (Fingerstick) 109 mg/dL (70-99) Review of Systems Review of Systems: CO abdominal cramping CO fatigue Assessment and Plan Assessmemt and Plan Problems Medical Problems: (1) Acute kidney injury superimposed on CKD Status: Acute (2) Blood loss anemia Status: Acute (3) Diverticulosis Status: Chronic (4) DM2 (diabetes mellitus, type 2) Status: Chronic (5) HLD (hyperlipidemia) Status: Chronic (6) HTN (hypertension) Status: Chronic (7) Lower GI bleed Status: Acute 03/13/19 Assessment Lower GI bleed - likely diverticular. 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 Plan Ordered 2 units PRBCs Trend Hgb Await further GI input Home meds PTOT Labs Full code Comment Review of Relevant I have reviewed the following items russell (where applicable) has been applied. SABINA CH III DO Mar 13, 2019 10:52
[2019-03-13] MEDS: ACETAMINOPHEN 325 MG TABLET. PO PRN (13:25)
--- NOTE | 2019-03-13 15:59 | PDOC ---
G I PROGRESS NOTE Subjective Small amount of clot passed today. Remains stable and reasonably comfortable. Physical Exam Lungs clear. RRR Abdomen soft, not distended. Review of Relevant I have reviewed the following items russell (where applicable) has been applied. Labs Laboratory Tests Test 03/11/19 16:05 03/11/19 22:18 03/11/19 22:20 03/12/19 04:15 White Blood Count 6.0 x10^3/uL (4.0-11.0) 5.0 x10^3/uL (4.0-11.0) Red Blood Count 2.46 x10^6/uL (3.50-5.40) 2.43 x10^6/uL (3.50-5.40) Hemoglobin 7.3 g/dL (12.0-15.5) 7.3 g/dL (12.0-15.5) Hematocrit 21.3 % (36.0-47.0) 21.1 % (36.0-47.0) Mean Corpuscular Volume 87 fL (79-100) 87 fL (79-100) Mean Corpuscular Hemoglobin 30 pg (25-35) 30 pg (25-35) Mean Corpuscular Hemoglobin Concent 34 g/dL (31-37) 34 g/dL (31-37) Red Cell Distribution Width 14.3 % (11.5-14.5) 14.6 % (11.5-14.5) Platelet Count 115 x10^3/uL (140-400) 120 x10^3/uL (140-400) Glucose (Fingerstick) 163 mg/dL (70-99) 157 mg/dL (70-99) Neutrophils (%) (Auto) 74 % (31-73) Lymphocytes (%) (Auto) 14 % (24-48) Monocytes (%) (Auto) 8 % (0-9) Eosinophils (%) (Auto) 4 % (0-3) Basophils (%) (Auto) 1 % (0-3) Neutrophils # (Auto) 3.7 x10^3/uL (1.8-7.7) Lymphocytes # (Auto) 0.7 x10^3/uL (1.0-4.8) Monocytes # (Auto) 0.4 x10^3/uL (0.0-1.1) Eosinophils # (Auto) 0.2 x10^3/uL (0.0-0.7) Basophils # (Auto) 0.0 x10^3/uL (0.0-0.2) Test 03/12/19 07:00 03/12/19 11:37 03/12/19 16:40 03/12/19 20:37 Glucose (Fingerstick) 117 mg/dL (70-99) 126 mg/dL (70-99) 88 mg/dL (70-99) 178 mg/dL (70-99) Test 03/13/19 06:00 03/13/19 07:31 03/13/19 11:36 White Blood Count 4.8 x10^3/uL (4.0-11.0) Red Blood Count 2.20 x10^6/uL (3.50-5.40) Hemoglobin 6.7 g/dL (12.0-15.5) Hematocrit 19.3 % (36.0-47.0) Mean Corpuscular Volume 88 fL (79-100) Mean Corpuscular Hemoglobin 30 pg (25-35) Mean Corpuscular Hemoglobin Concent 35 g/dL (31-37) Red Cell Distribution Width 14.4 % (11.5-14.5) Platelet Count 118 x10^3/uL (140-400) Neutrophils (%) (Auto) 77 % (31-73) Lymphocytes (%) (Auto) 11 % (24-48) Monocytes (%) (Auto) 9 % (0-9) Eosinophils (%) (Auto) 2 % (0-3) Basophils (%) (Auto) 1 % (0-3) Neutrophils # (Auto) 3.7 x10^3/uL (1.8-7.7) Lymphocytes # (Auto) 0.5 x10^3/uL (1.0-4.8) Monocytes # (Auto) 0.4 x10^3/uL (0.0-1.1) Eosinophils # (Auto) 0.1 x10^3/uL (0.0-0.7) Basophils # (Auto) 0.0 x10^3/uL (0.0-0.2) Iron Level 21 ug/dL (50-170) Total Iron Binding Capacity 203 ug/dL (250-450) Iron Saturation 10 % (15-34) Ferritin 250 ng/mL (8-252) Glucose (Fingerstick) 109 mg/dL (70-99) 142 mg/dL (70-99) Laboratory Tests Test 03/12/19 16:40 03/12/19 20:37 03/13/19 06:00 03/13/19 07:31 Glucose (Fingerstick) 88 mg/dL (70-99) 178 mg/dL (70-99) 109 mg/dL (70-99) White Blood Count 4.8 x10^3/uL (4.0-11.0) Red Blood Count 2.20 x10^6/uL (3.50-5.40) Hemoglobin 6.7 g/dL (12.0-15.5) Hematocrit 19.3 % (36.0-47.0) Mean Corpuscular Volume 88 fL (79-100) Mean Corpuscular Hemoglobin 30 pg (25-35) Mean Corpuscular Hemoglobin Concent 35 g/dL (31-37) Red Cell Distribution Width 14.4 % (11.5-14.5) Platelet Count 118 x10^3/uL (140-400) Neutrophils (%) (Auto) 77 % (31-73) Lymphocytes (%) (Auto) 11 % (24-48) Monocytes (%) (Auto) 9 % (0-9) Eosinophils (%) (Auto) 2 % (0-3) Basophils (%) (Auto) 1 % (0-3) Neutrophils # (Auto) 3.7 x10^3/uL (1.8-7.7) Lymphocytes # (Auto) 0.5 x10^3/uL (1.0-4.8) Monocytes # (Auto) 0.4 x10^3/uL (0.0-1.1) Eosinophils # (Auto) 0.1 x10^3/uL (0.0-0.7) Basophils # (Auto) 0.0 x10^3/uL (0.0-0.2) Iron Level 21 ug/dL (50-170) Total Iron Binding Capacity 203 ug/dL (250-450) Iron Saturation 10 % (15-34) Ferritin 250 ng/mL (8-252) Test 03/13/19 11:36 Glucose (Fingerstick) 142 mg/dL (70-99) Minor drop in hemoglobin. REGIS--fairly recent 'scopes. Vitals/I & O Vital Sign - Last 24 Hours 03/12/19 03/12/19 03/12/19 03/12/19 17:50 19:00 20:00 21:19 Temp 98.0 98.0 Pulse 71 81 81 Resp 20 B/P (MAP) 148/47 148/70 (96) 148/70 Pulse Ox 98 O2 Delivery Room Air Room Air 03/12/19 03/13/19 03/13/19 03/13/19 23:00 03:00 04:28 07:56 Temp 97.8 99.2 99.1 99.4 97.8 99.2 99.1 99.4 Pulse 75 85 85 75 Resp 20 20 20 16 B/P (MAP) 134/67 (89) 136/46 (76) 136/46 (76) 151/71 (97) Pulse Ox 99 97 97 100 O2 Delivery Room Air Room Air Room Air Room Air 03/13/19 03/13/19 03/13/19 03/13/19 08:05 08:42 08:42 08:42 Pulse 75 75 75 B/P (MAP) 151/71 151/71 151/71 O2 Delivery Room Air 03/13/19 03/13/19 03/13/19 03/13/19 10:50 11:20 11:42 12:45 Temp 99.3 99.3 99.1 99.5 99.3 99.3 99.1 99.5 Pulse 84 84 75 80 Resp 18 17 15 16 B/P (MAP) 145/66 (92) 155/76 179/74 182/75 Pulse Ox 100 O2 Delivery Room Air 03/13/19 03/13/19 03/13/19 03/13/19 13:26 14:24 14:35 15:44 Temp 98.8 98.8 98.4 98.8 98.8 98.4 Pulse 80 76 76 71 Resp 16 18 16 B/P (MAP) 182/75 192/81 192/81 (118) 188/81 Pulse Ox 100 O2 Delivery Room Air Intake and Output 03/12/19 03/12/19 03/13/19 15:00 23:00 07:00 Intake Total 500 ml 150 ml Output Total 380 ml 300 ml Balance 120 ml -150 ml Problem List Problems Medical Problems: (1) Acute kidney injury superimposed on CKD Status: Acute (2) Blood loss anemia Status: Acute (3) Diverticulosis Status: Chronic (4) DM2 (diabetes mellitus, type 2) Status: Chronic (5) HLD (hyperlipidemia) Status: Chronic (6) HTN (hypertension) Status: Chronic (7) Lower GI bleed Status: Acute Assessment Likely diverticular bleed, "stuttering". Remains hemodynamically stable. Probably not brisk enough to image. Plan of Care: Continue current Tx, Mgmt Plan of Care Note Agree with transfusion. SYL BARNEY MD Mar 13, 2019 15:59
--- NOTE | 2019-03-13 19:20 | NUR ---
Patients BP's during blood transfusion were taken on L calf and were much higher than when taken in L arm post transfusion.
[2019-03-13 20:19] LABS: HEMATOCRIT 24.6 % (36.0-47.0); HEMOGLOBIN 8.4 g/dL (12.0-15.5)
[2019-03-13] MEDS: INSULIN GLARGINE 300 UNITS/3 ML INSULN.PEN. SQ SCH (21:00)
[2019-03-13] MEDS: LATANOPROST 0.005% OPHTH SOLUTION 2.5ML BOTTLE. OS SCH (21:44)
[2019-03-13] MEDS: ATORVASTATIN CALCIUM 40 MG TABLET. PO SCH (21:45)
[2019-03-13] MEDS: ZOLPIDEM 5 MG TABLET. PO PRN (21:45)
[2019-03-13] MEDS: CITALOPRAM 20 MG TABLET. PO SCH (21:45)
[2019-03-14 03:20] VITALS: BP 135/63
[2019-03-14 05:04] LABS: CALCIUM 8.6 mg/dL (8.5-10.1); CREATININE 0.9 mg/dL (0.6-1.0); GFR 78.7; POTASSIUM 3.4 mmol/L (3.5-5.1)
[2019-03-14 05:22] LABS: BASO % 1 % (0-3); EOS # 0.1 x10^3/uL (0.0-0.7); EOS % 3 % (0-3); HEMOGLOBIN 8.6 g/dL (12.0-15.5); LYMPH # 0.6 x10^3/uL (1.0-4.8); LYMPH % 14 % (24-48); MEAN CORPUSCULAR HEMOGLOBIN 31 pg (25-35); MEAN CORPUSCULAR HGB CONC 35 g/dL (31-37); MEAN CORPUSCULAR VOLUME 89 fL (79-100); MONO # 0.5 x10^3/uL (0.0-1.1); MONO % 10 % (0-9); NEUT # 3.3 x10^3/uL (1.8-7.7); NEUT % 72 % (31-73); PLATELET COUNT 123 x10^3/uL (140-400); RED BLOOD COUNT 2.81 x10^6/uL (3.50-5.40); RED CELL DISTRIBUTION WIDTH 14.8 % (11.5-14.5); WHITE BLOOD COUNT 4.5 x10^3/uL (4.0-11.0)
[2019-03-14 07:00] VITALS: BP 173/72
--- NOTE | 2019-03-14 07:50 | NUR ---
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
--- NOTE | 2019-03-14 09:05 | PDOC ---
SUBJECTIVE Subjective S: Feeling better, hemoglobin 8.6, had has 6 units total O: Physical exam: Gen.: Well-nourished and well-developed, resting in bed Lungs: Breathing comfortably Psychiatric: Pleasant mood and affect Labs: Hemoglobin 8.6 today, platelets up to 123 ferr of 250, sat of 10%, TIBC low Assessment and Plan: Ms Quintero is a 53-year-old female with recent diagnosis of breast cancer on exemestane, also recent history of Giardia, admitted for GI bleed suspected due to stuttering diverticular bleeding. GI bleed: Improving, defer to GI, on PPI Breast cancer: Has recently started exemestane, can resume upon discharge Iron deficient anemia: Recently ferritin >200 w/ low TIBC s/p recent IV iron, can redose prn Thrombocytopenia: suspect dilutional/consumptive, improving, can keep an eye on, >100 Disposition: After GI bleeding has stopped and she is clinically stable Thank you kindly and please do not hesitate to call with questions. OBJECTIVE Vital Signs Vital Signs Date Time Temp Pulse Resp B/P (MAP) Pulse Ox O2 Delivery O2 Flow Rate FiO2 03/14/19 07:00 99.4 71 18 173/72 (105) 97 Room Air 99.4 03/14/19 03:20 98.4 83 18 135/63 (87) 97 Room Air 98.4 03/13/19 23:49 99.4 88 20 118/55 (76) 98 Room Air 99.4 03/13/19 21:45 74 145/67 03/13/19 20:00 Room Air 03/13/19 19:19 99.0 74 16 145/67 99.0 03/13/19 19:15 99.3 68 20 159/63 (95) 98 Room Air 99.3 03/13/19 18:00 98.8 79 16 202/84 98.8 03/13/19 17:18 75 196/84 03/13/19 16:58 99.0 75 18 196/84 99.0 03/13/19 16:00 98.8 71 16 201/82 98.8 03/13/19 15:44 98.4 71 16 188/81 98.4 03/13/19 14:35 98.8 76 18 192/81 (118) 100 Room Air 98.8 03/13/19 14:24 98.8 76 16 192/81 98.8 03/13/19 13:26 80 182/75 03/13/19 12:45 99.5 80 16 182/75 99.5 03/13/19 11:42 99.1 75 15 179/74 99.1 03/13/19 11:20 99.3 84 17 155/76 99.3 03/13/19 10:50 99.3 84 18 145/66 (92) 100 Room Air 99.3 I & O Intake and Output 03/14/19 06:59 Intake Total 2660 ml Output Total 1070 ml Balance 1590 ml Intake Oral 1350 ml Blood Product IV Normal Saline Flush 1310 ml Output Urine Total 450 ml Stool Total 620 ml COMMENT Lab Laboratory Tests Test 03/13/19 11:36 03/13/19 16:43 03/13/19 19:00 03/13/19 20:38 Glucose (Fingerstick) 142 mg/dL (70-99) 74 mg/dL (70-99) 102 mg/dL (70-99) Hemoglobin 8.4 g/dL (12.0-15.5) Hematocrit 24.6 % (36.0-47.0) Mean Corpuscular Hemoglobin Concent 34 g/dL (31-37) Test 03/14/19 03:30 03/14/19 07:18 White Blood Count 4.5 x10^3/uL (4.0-11.0) Red Blood Count 2.81 x10^6/uL (3.50-5.40) Hemoglobin 8.6 g/dL (12.0-15.5) Hematocrit 25.0 % (36.0-47.0) Mean Corpuscular Volume 89 fL (79-100) Mean Corpuscular Hemoglobin 31 pg (25-35) Mean Corpuscular Hemoglobin Concent 35 g/dL (31-37) Red Cell Distribution Width 14.8 % (11.5-14.5) Platelet Count 123 x10^3/uL (140-400) Neutrophils (%) (Auto) 72 % (31-73) Lymphocytes (%) (Auto) 14 % (24-48) Monocytes (%) (Auto) 10 % (0-9) Eosinophils (%) (Auto) 3 % (0-3) Basophils (%) (Auto) 1 % (0-3) Neutrophils # (Auto) 3.3 x10^3/uL (1.8-7.7) Lymphocytes # (Auto) 0.6 x10^3/uL (1.0-4.8) Monocytes # (Auto) 0.5 x10^3/uL (0.0-1.1) Eosinophils # (Auto) 0.1 x10^3/uL (0.0-0.7) Basophils # (Auto) 0.0 x10^3/uL (0.0-0.2) Sodium Level 142 mmol/L (136-145) Potassium Level 3.4 mmol/L (3.5-5.1) Chloride Level 110 mmol/L (98-107) Carbon Dioxide Level 22 mmol/L (21-32) Anion Gap 10 (6-14) Blood Urea Nitrogen 6 mg/dL (7-20) Creatinine 0.9 mg/dL (0.6-1.0) Estimated GFR (Cockcroft-Gault) 78.7 Glucose Level 174 mg/dL (70-99) Calcium Level 8.6 mg/dL (8.5-10.1) Glucose (Fingerstick) 116 mg/dL (70-99) KIERSTEN SMALL MD Mar 14, 2019 09:05
[2019-03-14] MEDS: PANTOPRAZOLE IV PUSH 40 MG VIAL. IVP SCH (09:38)
[2019-03-14] MEDS: CARVEDILOL 12.5 MG TABLET. PO SCH ×2 (09:39→19:01)
[2019-03-14] MEDS: hydrALAZINE 25 MG TABLET PO SCH ×2 (09:40→15:40)
[2019-03-14] MEDS: ISOSORBIDE MONONITRATE ER 30 MG TAB.ER.24H PO SCH (09:40)
[2019-03-14 10:53] VITALS: BP 123/52
--- NOTE | 2019-03-14 10:55 | PDOC ---
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 Breast cancer LILLIE History of Present Illness History of Present Illness 03/14/19 Pt seen and examined Chart reviewed Hgb trending upwards (6.7 yesterday to 8.6 today) VINNY RN 03/13/19 Pt seen and examined Pt tolerating foods PO Hgb trending down from yesterday (7.3, 6.7 today) VSS DW pt and family at length 03/12/19 Pt seen and examined Pt sitting in bed Pt tolerate foods PO Hgb trending up (6.3, 7.3 today) Plt trending up (104, 115, 120 today) DW family Vitals/I&O Vitals/I&O: Vital Signs Date Time Temp Pulse Resp B/P (MAP) Pulse Ox O2 Delivery O2 Flow Rate FiO2 03/14/19 09:40 173/72 03/14/19 09:39 79 03/14/19 07:00 99.4 18 97 Room Air 99.4 I & O 03/13/19 03/13/19 03/14/19 15:00 23:00 07:00 Intake Total 1010 ml 1500 ml 150 ml Output Total 400 ml 220 ml 450 ml Balance 610 ml 1280 ml -300 ml Physical Exam General: Alert, Oriented X3, Cooperative, No acute distress Heart: Regular rate, No murmurs Lungs: Clear Abdomen: Normal bowel sounds, Soft, No tenderness, No hepatosplenomegaly, No masses Extremities: No clubbing, No cyanosis, No edema, Normal pulses, No tenderness/swelling Skin: No rashes, No breakdown, No significant lesion Labs Labs: Laboratory Tests Test 03/13/19 11:36 03/13/19 16:43 03/13/19 19:00 03/13/19 20:38 Glucose (Fingerstick) 142 mg/dL (70-99) 74 mg/dL (70-99) 102 mg/dL (70-99) Hemoglobin 8.4 g/dL (12.0-15.5) Hematocrit 24.6 % (36.0-47.0) Mean Corpuscular Hemoglobin Concent 34 g/dL (31-37) Test 03/14/19 03:30 03/14/19 07:18 White Blood Count 4.5 x10^3/uL (4.0-11.0) Red Blood Count 2.81 x10^6/uL (3.50-5.40) Hemoglobin 8.6 g/dL (12.0-15.5) Hematocrit 25.0 % (36.0-47.0) Mean Corpuscular Volume 89 fL (79-100) Mean Corpuscular Hemoglobin 31 pg (25-35) Mean Corpuscular Hemoglobin Concent 35 g/dL (31-37) Red Cell Distribution Width 14.8 % (11.5-14.5) Platelet Count 123 x10^3/uL (140-400) Neutrophils (%) (Auto) 72 % (31-73) Lymphocytes (%) (Auto) 14 % (24-48) Monocytes (%) (Auto) 10 % (0-9) Eosinophils (%) (Auto) 3 % (0-3) Basophils (%) (Auto) 1 % (0-3) Neutrophils # (Auto) 3.3 x10^3/uL (1.8-7.7) Lymphocytes # (Auto) 0.6 x10^3/uL (1.0-4.8) Monocytes # (Auto) 0.5 x10^3/uL (0.0-1.1) Eosinophils # (Auto) 0.1 x10^3/uL (0.0-0.7) Basophils # (Auto) 0.0 x10^3/uL (0.0-0.2) Sodium Level 142 mmol/L (136-145) Potassium Level 3.4 mmol/L (3.5-5.1) Chloride Level 110 mmol/L (98-107) Carbon Dioxide Level 22 mmol/L (21-32) Anion Gap 10 (6-14) Blood Urea Nitrogen 6 mg/dL (7-20) Creatinine 0.9 mg/dL (0.6-1.0) Estimated GFR (Cockcroft-Gault) 78.7 Glucose Level 174 mg/dL (70-99) Calcium Level 8.6 mg/dL (8.5-10.1) Glucose (Fingerstick) 116 mg/dL (70-99) Review of Systems Review of Systems: No headache No fever/chills Assessment and Plan Assessmemt and Plan Problems Medical Problems: (1) Acute kidney injury superimposed on CKD Status: Acute (2) Blood loss anemia Status: Acute (3) Diverticulosis Status: Chronic (4) DM2 (diabetes mellitus, type 2) Status: Chronic (5) HLD (hyperlipidemia) Status: Chronic (6) HTN (hypertension) Status: Chronic (7) Lower GI bleed Status: Acute Assessment: Lower GI bleed (likely diverticular in origin) Acute blood loss 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 SABINA CH III DO Mar 14, 2019 10:55
--- NOTE | 2019-03-14 14:41 | NUR ---
SS following up with discharge planning. Pt is currently on room air. PT recommended home with assistance. SS met with pt and discussed home healthcare. Pt declined home healthcare at this time stating it was not necessary. SS will continue to follow for discharge planning.
[2019-03-14 15:00] VITALS: BP 148/64
--- NOTE | 2019-03-14 15:51 | PDOC ---
G I PROGRESS NOTE Subjective No pain today. Has seen brown stool with flecks of old blood. Tolerating clears. Physical Exam Lungs clear. RRR Abdomen soft, not tender nor distended. Review of Relevant I have reviewed the following items russell (where applicable) has been applied. Labs Laboratory Tests Test 03/12/19 16:40 03/12/19 20:37 03/13/19 06:00 03/13/19 07:31 Glucose (Fingerstick) 88 mg/dL (70-99) 178 mg/dL (70-99) 109 mg/dL (70-99) White Blood Count 4.8 x10^3/uL (4.0-11.0) Red Blood Count 2.20 x10^6/uL (3.50-5.40) Hemoglobin 6.7 g/dL (12.0-15.5) Hematocrit 19.3 % (36.0-47.0) Mean Corpuscular Volume 88 fL (79-100) Mean Corpuscular Hemoglobin 30 pg (25-35) Mean Corpuscular Hemoglobin Concent 35 g/dL (31-37) Red Cell Distribution Width 14.4 % (11.5-14.5) Platelet Count 118 x10^3/uL (140-400) Neutrophils (%) (Auto) 77 % (31-73) Lymphocytes (%) (Auto) 11 % (24-48) Monocytes (%) (Auto) 9 % (0-9) Eosinophils (%) (Auto) 2 % (0-3) Basophils (%) (Auto) 1 % (0-3) Neutrophils # (Auto) 3.7 x10^3/uL (1.8-7.7) Lymphocytes # (Auto) 0.5 x10^3/uL (1.0-4.8) Monocytes # (Auto) 0.4 x10^3/uL (0.0-1.1) Eosinophils # (Auto) 0.1 x10^3/uL (0.0-0.7) Basophils # (Auto) 0.0 x10^3/uL (0.0-0.2) Iron Level 21 ug/dL (50-170) Total Iron Binding Capacity 203 ug/dL (250-450) Iron Saturation 10 % (15-34) Ferritin 250 ng/mL (8-252) Test 03/13/19 11:36 03/13/19 16:43 03/13/19 19:00 03/13/19 20:38 Glucose (Fingerstick) 142 mg/dL (70-99) 74 mg/dL (70-99) 102 mg/dL (70-99) Hemoglobin 8.4 g/dL (12.0-15.5) Hematocrit 24.6 % (36.0-47.0) Mean Corpuscular Hemoglobin Concent 34 g/dL (31-37) Test 03/14/19 03:30 03/14/19 07:18 03/14/19 11:14 White Blood Count 4.5 x10^3/uL (4.0-11.0) Red Blood Count 2.81 x10^6/uL (3.50-5.40) Hemoglobin 8.6 g/dL (12.0-15.5) Hematocrit 25.0 % (36.0-47.0) Mean Corpuscular Volume 89 fL (79-100) Mean Corpuscular Hemoglobin 31 pg (25-35) Mean Corpuscular Hemoglobin Concent 35 g/dL (31-37) Red Cell Distribution Width 14.8 % (11.5-14.5) Platelet Count 123 x10^3/uL (140-400) Neutrophils (%) (Auto) 72 % (31-73) Lymphocytes (%) (Auto) 14 % (24-48) Monocytes (%) (Auto) 10 % (0-9) Eosinophils (%) (Auto) 3 % (0-3) Basophils (%) (Auto) 1 % (0-3) Neutrophils # (Auto) 3.3 x10^3/uL (1.8-7.7) Lymphocytes # (Auto) 0.6 x10^3/uL (1.0-4.8) Monocytes # (Auto) 0.5 x10^3/uL (0.0-1.1) Eosinophils # (Auto) 0.1 x10^3/uL (0.0-0.7) Basophils # (Auto) 0.0 x10^3/uL (0.0-0.2) Sodium Level 142 mmol/L (136-145) Potassium Level 3.4 mmol/L (3.5-5.1) Chloride Level 110 mmol/L (98-107) Carbon Dioxide Level 22 mmol/L (21-32) Anion Gap 10 (6-14) Blood Urea Nitrogen 6 mg/dL (7-20) Creatinine 0.9 mg/dL (0.6-1.0) Estimated GFR (Cockcroft-Gault) 78.7 Glucose Level 174 mg/dL (70-99) Calcium Level 8.6 mg/dL (8.5-10.1) Glucose (Fingerstick) 116 mg/dL (70-99) 144 mg/dL (70-99) Laboratory Tests Test 03/13/19 16:43 03/13/19 19:00 03/13/19 20:38 03/14/19 03:30 Glucose (Fingerstick) 74 mg/dL (70-99) 102 mg/dL (70-99) Hemoglobin 8.4 g/dL (12.0-15.5) 8.6 g/dL (12.0-15.5) Hematocrit 24.6 % (36.0-47.0) 25.0 % (36.0-47.0) Mean Corpuscular Hemoglobin Concent 34 g/dL (31-37) 35 g/dL (31-37) White Blood Count 4.5 x10^3/uL (4.0-11.0) Red Blood Count 2.81 x10^6/uL (3.50-5.40) Mean Corpuscular Volume 89 fL (79-100) Mean Corpuscular Hemoglobin 31 pg (25-35) Red Cell Distribution Width 14.8 % (11.5-14.5) Platelet Count 123 x10^3/uL (140-400) Neutrophils (%) (Auto) 72 % (31-73) Lymphocytes (%) (Auto) 14 % (24-48) Monocytes (%) (Auto) 10 % (0-9) Eosinophils (%) (Auto) 3 % (0-3) Basophils (%) (Auto) 1 % (0-3) Neutrophils # (Auto) 3.3 x10^3/uL (1.8-7.7) Lymphocytes # (Auto) 0.6 x10^3/uL (1.0-4.8) Monocytes # (Auto) 0.5 x10^3/uL (0.0-1.1) Eosinophils # (Auto) 0.1 x10^3/uL (0.0-0.7) Basophils # (Auto) 0.0 x10^3/uL (0.0-0.2) Sodium Level 142 mmol/L (136-145) Potassium Level 3.4 mmol/L (3.5-5.1) Chloride Level 110 mmol/L (98-107) Carbon Dioxide Level 22 mmol/L (21-32) Anion Gap 10 (6-14) Blood Urea Nitrogen 6 mg/dL (7-20) Creatinine 0.9 mg/dL (0.6-1.0) Estimated GFR (Cockcroft-Gault) 78.7 Glucose Level 174 mg/dL (70-99) Calcium Level 8.6 mg/dL (8.5-10.1) Test 03/14/19 07:18 03/14/19 11:14 Glucose (Fingerstick) 116 mg/dL (70-99) 144 mg/dL (70-99) Hemoglobin stable post-transfusion. Vitals/I & O Vital Sign - Last 24 Hours 03/13/19 03/13/19 03/13/19 03/13/19 16:00 16:58 17:18 18:00 Temp 98.8 99.0 98.8 98.8 99.0 98.8 Pulse 71 75 75 79 Resp 16 18 16 B/P (MAP) 201/82 196/84 196/84 202/84 03/13/19 03/13/19 03/13/19 03/13/19 19:15 19:19 20:00 21:45 Temp 99.3 99.0 99.3 99.0 Pulse 68 74 74 Resp 20 16 B/P (MAP) 159/63 (95) 145/67 145/67 Pulse Ox 98 O2 Delivery Room Air Room Air 03/13/19 03/14/19 03/14/19 03/14/19 23:49 03:20 07:00 09:39 Temp 99.4 98.4 99.4 99.4 98.4 99.4 Pulse 88 83 71 79 Resp 20 18 18 B/P (MAP) 118/55 (76) 135/63 (87) 173/72 (105) 173/72 Pulse Ox 98 97 97 O2 Delivery Room Air Room Air Room Air 03/14/19 03/14/19 03/14/19 03/14/19 09:40 09:40 10:53 15:00 Temp 99.1 98.3 99.1 98.3 Pulse 78 69 Resp 18 18 B/P (MAP) 173/72 173/72 123/52 (75) 148/64 (92) Pulse Ox 98 97 O2 Delivery Room Air Room Air 03/14/19 15:40 Pulse 69 B/P (MAP) 148/64 Intake and Output 03/13/19 03/13/19 03/14/19 14:59 22:59 06:59 Intake Total 1010 ml 1500 ml 150 ml Output Total 400 ml 220 ml 450 ml Balance 610 ml 1280 ml -300 ml Problem List Problems Medical Problems: (1) Acute kidney injury superimposed on CKD Status: Acute (2) Blood loss anemia Status: Acute (3) Diverticulosis Status: Chronic (4) DM2 (diabetes mellitus, type 2) Status: Chronic (5) HLD (hyperlipidemia) Status: Chronic (6) HTN (hypertension) Status: Chronic (7) Lower GI bleed Status: Acute Assessment Probable diverticular bleed; seems may be resolving. Plan of Care Note Full liquids, continue observation. If stools continue to improve, advance diet and consider discharge. Off the weekend. Dr. Saeed gaming. SYL BARNEY MD Mar 14, 2019 15:51
[2019-03-14 19:40] VITALS: BP 154/70
[2019-03-14] MEDS: CITALOPRAM 20 MG TABLET. PO SCH (21:03)
[2019-03-14] MEDS: LATANOPROST 0.005% OPHTH SOLUTION 2.5ML BOTTLE. OS SCH (21:03)
[2019-03-14] MEDS: ZOLPIDEM 5 MG TABLET. PO PRN (21:03)
[2019-03-14] MEDS: ATORVASTATIN CALCIUM 40 MG TABLET. PO SCH (21:04)
[2019-03-14] MEDS: INSULIN GLARGINE 300 UNITS/3 ML INSULN.PEN. SQ SCH (21:10)
[2019-03-14 23:42] VITALS: BP 163/79
[2019-03-15 03:45] VITALS: BP 163/68
[2019-03-15 05:20] LABS: BASO % 1 % (0-3); EOS # 0.2 x10^3/uL (0.0-0.7); EOS % 3 % (0-3); HEMATOCRIT 23.9 % (36.0-47.0); HEMOGLOBIN 8.3 g/dL (12.0-15.5); LYMPH # 0.8 x10^3/uL (1.0-4.8); LYMPH % 14 % (24-48); MEAN CORPUSCULAR HEMOGLOBIN 31 pg (25-35); MEAN CORPUSCULAR HGB CONC 35 g/dL (31-37); MEAN CORPUSCULAR VOLUME 88 fL (79-100); MONO # 0.5 x10^3/uL (0.0-1.1); MONO % 10 % (0-9); NEUT % 72 % (31-73); PLATELET COUNT 139 x10^3/uL (140-400); RED BLOOD COUNT 2.71 x10^6/uL (3.50-5.40); RED CELL DISTRIBUTION WIDTH 15.2 % (11.5-14.5); WHITE BLOOD COUNT 5.5 x10^3/uL (4.0-11.0)
[2019-03-15 05:26] LABS: CALCIUM 8.7 mg/dL (8.5-10.1); CREATININE 0.9 mg/dL (0.6-1.0); GFR 78.7; POTASSIUM 3.6 mmol/L (3.5-5.1)
[2019-03-15 07:00] VITALS: BP 180/81
--- NOTE | 2019-03-15 07:37 | NUR ---
Stool at 0300 showed no indication of blood. Was liquid and light brown in color, and mixed with urine.
[2019-03-15] MEDS: PANTOPRAZOLE IV PUSH 40 MG VIAL. IVP SCH (08:03)
[2019-03-15] MEDS: hydrALAZINE 25 MG TABLET PO SCH ×2 (08:04→14:12)
[2019-03-15] MEDS: CARVEDILOL 12.5 MG TABLET. PO SCH ×2 (08:04→16:05)
[2019-03-15] MEDS: ISOSORBIDE MONONITRATE ER 30 MG TAB.ER.24H PO SCH (08:04)
[2019-03-15] MEDS ORDERED: IV DEXTROSE 5% 250 ML BAG. IV PRN (08:15)
[2019-03-15 11:00] VITALS: BP 167/74
--- NOTE | 2019-03-15 12:39 | PDOC ---
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 seen and examined (now complains of loose stools w/ low grade fever - no blood) Chart reviewed Hgb trending slightly down (8.6 yesterday to 8.3 today) VINNY RN 03/14/19 Pt seen and examined Chart reviewed Hgb trending upwards (6.7 yesterday to 8.6 today) VINNY RN 03/13/19 Pt seen and examined Pt tolerating foods PO Hgb trending down from yesterday (7.3, 6.7 today) VSS DW pt and family at length 03/12/19 Pt seen and examined Pt sitting in bed Pt tolerate foods PO Hgb trending up (6.3, 7.3 today) Plt trending up (104, 115, 120 today) DW family Vitals/I&O Vitals/I&O: Vital Signs Date Time Temp Pulse Resp B/P (MAP) Pulse Ox O2 Delivery O2 Flow Rate FiO2 03/15/19 08:04 75 180/81 03/15/19 07:50 Room Air 95.0 03/15/19 07:00 98.9 20 99 98.9 I & O 03/14/19 03/14/19 03/15/19 15:00 23:00 07:00 Intake Total 250 ml Output Total 220 ml Balance 30 ml Physical Exam General: Alert, Oriented X3, Cooperative, No acute distress Heart: Regular rate, No murmurs Lungs: Clear Abdomen: Normal bowel sounds, Soft, No tenderness, No hepatosplenomegaly, No masses Extremities: No clubbing, No cyanosis, No edema, Normal pulses, No tenderness/swelling Skin: No rashes, No breakdown, No significant lesion Labs Labs: Laboratory Tests Test 03/14/19 16:44 03/14/19 20:55 03/15/19 04:00 03/15/19 08:01 Glucose (Fingerstick) 122 mg/dL (70-99) 147 mg/dL (70-99) 109 mg/dL (70-99) White Blood Count 5.5 x10^3/uL (4.0-11.0) Red Blood Count 2.71 x10^6/uL (3.50-5.40) Hemoglobin 8.3 g/dL (12.0-15.5) Hematocrit 23.9 % (36.0-47.0) Mean Corpuscular Volume 88 fL (79-100) Mean Corpuscular Hemoglobin 31 pg (25-35) Mean Corpuscular Hemoglobin Concent 35 g/dL (31-37) Red Cell Distribution Width 15.2 % (11.5-14.5) Platelet Count 139 x10^3/uL (140-400) Neutrophils (%) (Auto) 72 % (31-73) Lymphocytes (%) (Auto) 14 % (24-48) Monocytes (%) (Auto) 10 % (0-9) Eosinophils (%) (Auto) 3 % (0-3) Basophils (%) (Auto) 1 % (0-3) Neutrophils # (Auto) 4.0 x10^3/uL (1.8-7.7) Lymphocytes # (Auto) 0.8 x10^3/uL (1.0-4.8) Monocytes # (Auto) 0.5 x10^3/uL (0.0-1.1) Eosinophils # (Auto) 0.2 x10^3/uL (0.0-0.7) Basophils # (Auto) 0.0 x10^3/uL (0.0-0.2) Sodium Level 143 mmol/L (136-145) Potassium Level 3.6 mmol/L (3.5-5.1) Chloride Level 110 mmol/L (98-107) Carbon Dioxide Level 23 mmol/L (21-32) Anion Gap 10 (6-14) Blood Urea Nitrogen 7 mg/dL (7-20) Creatinine 0.9 mg/dL (0.6-1.0) Estimated GFR (Cockcroft-Gault) 78.7 Glucose Level 119 mg/dL (70-99) Calcium Level 8.7 mg/dL (8.5-10.1) Test 03/15/19 10:55 Glucose (Fingerstick) 161 mg/dL (70-99) Review of Systems Review of Systems: No headache No chest pain No chills Assessment and Plan Assessmemt and Plan Problems Medical Problems: (1) Acute kidney injury superimposed on CKD Status: Acute (2) Blood loss anemia Status: Acute (3) Diverticulosis Status: Chronic (4) DM2 (diabetes mellitus, type 2) Status: Chronic (5) HLD (hyperlipidemia) Status: Chronic (6) HTN (hypertension) Status: Chronic (7) Lower GI bleed Status: Acute Assessment: Lower GI bleed (likely diverticular in origin) Acute blood loss Breast cancer w/ lumpectomy and radiation (no chemo) 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 SABINA CH III, DO Mar 15, 2019 12:39
[2019-03-15] MEDS ORDERED: IV NORMAL SALINE 50 ML BAG IV ONE (12:45)
--- NOTE | 2019-03-15 12:45 | PDOC ---
GI PROGRESS NOTES Date Date/Time DATE: 03/15/19 TIME: 12:43 Subjective Subjective feeling better- tolerating diet- no further bleeding Objective Vitals Vital Signs Date Time Temp Pulse Resp B/P (MAP) Pulse Ox O2 Delivery O2 Flow Rate FiO2 03/15/19 08:04 75 180/81 03/15/19 08:04 75 180/81 03/15/19 08:04 75 180/81 03/15/19 07:50 Room Air 95.0 03/15/19 07:00 98.9 78 20 180/81 (114) 99 Room Air 98.9 03/15/19 03:45 98.7 75 20 163/68 (99) 97 Room Air 98.7 03/14/19 23:42 98.5 76 20 163/79 (107) 98 Room Air 98.5 03/14/19 21:04 72 154/70 03/14/19 20:00 Room Air 03/14/19 19:40 98.7 72 21 154/70 (98) 97 Room Air 98.7 03/14/19 19:01 70 03/14/19 15:40 69 148/64 03/14/19 15:00 98.3 69 18 148/64 (92) 97 Room Air 98.3 Labs Labs Laboratory Tests Test 03/14/19 16:44 03/14/19 20:55 03/15/19 04:00 03/15/19 08:01 Glucose (Fingerstick) 122 mg/dL (70-99) 147 mg/dL (70-99) 109 mg/dL (70-99) White Blood Count 5.5 x10^3/uL (4.0-11.0) Red Blood Count 2.71 x10^6/uL (3.50-5.40) Hemoglobin 8.3 g/dL (12.0-15.5) Hematocrit 23.9 % (36.0-47.0) Mean Corpuscular Volume 88 fL (79-100) Mean Corpuscular Hemoglobin 31 pg (25-35) Mean Corpuscular Hemoglobin Concent 35 g/dL (31-37) Red Cell Distribution Width 15.2 % (11.5-14.5) Platelet Count 139 x10^3/uL (140-400) Neutrophils (%) (Auto) 72 % (31-73) Lymphocytes (%) (Auto) 14 % (24-48) Monocytes (%) (Auto) 10 % (0-9) Eosinophils (%) (Auto) 3 % (0-3) Basophils (%) (Auto) 1 % (0-3) Neutrophils # (Auto) 4.0 x10^3/uL (1.8-7.7) Lymphocytes # (Auto) 0.8 x10^3/uL (1.0-4.8) Monocytes # (Auto) 0.5 x10^3/uL (0.0-1.1) Eosinophils # (Auto) 0.2 x10^3/uL (0.0-0.7) Basophils # (Auto) 0.0 x10^3/uL (0.0-0.2) Sodium Level 143 mmol/L (136-145) Potassium Level 3.6 mmol/L (3.5-5.1) Chloride Level 110 mmol/L (98-107) Carbon Dioxide Level 23 mmol/L (21-32) Anion Gap 10 (6-14) Blood Urea Nitrogen 7 mg/dL (7-20) Creatinine 0.9 mg/dL (0.6-1.0) Estimated GFR (Cockcroft-Gault) 78.7 Glucose Level 119 mg/dL (70-99) Calcium Level 8.7 mg/dL (8.5-10.1) Test 03/15/19 10:55 Glucose (Fingerstick) 161 mg/dL (70-99) Physical Exam Physical Exam chest- clear abd - soft non tender Assessment Assessment Lower GI bleed- consistent with diverticular bleeding- non resolved and Hgb trending up Plan Plan Advance to ADA diet OK to d/c soon from GI point of view ROBERT SEGURA MD Mar 15, 2019 12:45
[2019-03-15] MEDS: IV NORMAL SALINE 1000ML BAG 1,000 ML IV SCH (13:00)
[2019-03-15 15:00] VITALS: BP 178/78
[2019-03-15] MEDS: ACETAMINOPHEN 325 MG TABLET. PO PRN (16:04)
[2019-03-15 19:55] VITALS: BP 168/72
[2019-03-15] MEDS: ATORVASTATIN CALCIUM 40 MG TABLET. PO SCH (21:02)
[2019-03-15] MEDS: ZOLPIDEM 5 MG TABLET. PO PRN (21:02)
[2019-03-15] MEDS: LATANOPROST 0.005% OPHTH SOLUTION 2.5ML BOTTLE. OS SCH (21:02)
[2019-03-15] MEDS: CITALOPRAM 20 MG TABLET. PO SCH (21:02)
[2019-03-15] MEDS: INSULIN GLARGINE 300 UNITS/3 ML INSULN.PEN. SQ SCH (21:07)
[2019-03-15 23:57] VITALS: BP 151/64
[2019-03-16] MEDS: IV NORMAL SALINE 1000ML BAG 1,000 ML IV SCH (02:20)
[2019-03-16 03:38] VITALS: BP 163/68
[2019-03-16 06:42] LABS: BASO % 1 % (0-3); CALCIUM 8.9 mg/dL (8.5-10.1); CREATININE 0.9 mg/dL (0.6-1.0); EOS # 0.2 x10^3/uL (0.0-0.7); EOS % 4 % (0-3); GFR 78.7; HEMATOCRIT 24.7 % (36.0-47.0); HEMOGLOBIN 8.4 g/dL (12.0-15.5); LYMPH # 0.7 x10^3/uL (1.0-4.8); LYMPH % 12 % (24-48); MEAN CORPUSCULAR HEMOGLOBIN 30 pg (25-35); MEAN CORPUSCULAR HGB CONC 34 g/dL (31-37); MEAN CORPUSCULAR VOLUME 89 fL (79-100); MONO # 0.5 x10^3/uL (0.0-1.1); MONO % 9 % (0-9); NEUT % 74 % (31-73); PLATELET COUNT 160 x10^3/uL (140-400); POTASSIUM 3.9 mmol/L (3.5-5.1); RED BLOOD COUNT 2.79 x10^6/uL (3.50-5.40); RED CELL DISTRIBUTION WIDTH 14.6 % (11.5-14.5); WHITE BLOOD COUNT 5.4 x10^3/uL (4.0-11.0)
[2019-03-16 07:00] VITALS: BP 170/76
[2019-03-16] MEDS ORDERED: PANTOPRAZOLE 40 MG TABLET.DR. PO SCH (07:30)
[2019-03-16] MEDS: CARVEDILOL 12.5 MG TABLET. PO SCH (08:00)
[2019-03-16] MEDS: hydrALAZINE 25 MG TABLET PO SCH ×2 (08:00→13:44)
[2019-03-16] MEDS: ISOSORBIDE MONONITRATE ER 30 MG TAB.ER.24H PO SCH (08:00)
[2019-03-16 11:00] VITALS: BP 146/71
[2019-03-16] MEDS ORDERED: INSULIN LISPRO 300 UNITS/3 ML INSULN.PEN. SQ SCH (11:30)
--- NOTE | 2019-03-16 12:32 | DS ---
DATE OF DISCHARGE: 03/09/2019 ADMISSION DIAGNOSIS: Gastrointestinal bleed. DISCHARGE DIAGNOSES: Resolving gastrointestinal bleed, history of breast cancer, history of diabetes, osteomyelitis, hyperlipidemia, hypertension, history of MRSA, acute kidney injury. HOSPITAL COURSE: The patient is a pleasant middle-aged female who has a history of breast cancer. She presented with a lower GI bleed. Her hemoglobin dropped into the 6s. She received several transfusions. We did consult GI and Hematology/Oncology. No procedures had been performed at this time. This morning, I saw her, examined her, she was doing well, up in the chair. Heart tones were normal. Lungs were clear. Her hemoglobin seems to be steady at 8.4. If okay with the consultants, we plan to discharge with close outpatient followup. DISPOSITION: Home. ACTIVITY: As tolerated. MEDICATIONS: Please see MRAD. TOTAL TIME: 32 minutes. SABINA CH DO DR: JOSSELINE/yvette JOB#: [id number] / [id number]
--- NOTE | 2019-03-16 13:18 | PDOC ---
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 seen and examined (now complains of loose stools w/ low grade fever - no blood) Chart reviewed Hgb trending slightly down (8.6 yesterday to 8.3 today) VINNY OCAMPO 03/14/19 Pt seen and examined Chart reviewed Hgb trending upwards (6.7 yesterday to 8.6 today) VINNY OCAMPO 03/13/19 Pt seen and examined Pt tolerating foods PO Hgb trending down from yesterday (7.3, 6.7 today) VSS DW pt and family at length 03/12/19 Pt seen and examined Pt sitting in bed Pt tolerate foods PO Hgb trending up (6.3, 7.3 today) Plt trending up (104, 115, 120 today) DW family Vitals/I&O Vitals/I&O: Vital Signs Date Time Temp Pulse Resp B/P (MAP) Pulse Ox O2 Delivery O2 Flow Rate FiO2 03/16/19 11:00 98.7 73 18 146/71 (96) 94 Room Air 98.7 03/15/19 07:50 95.0 I & O 03/15/19 03/15/19 03/16/19 15:00 23:00 07:00 Intake Total 800 ml 300 ml Output Total 300 ml 650 ml Balance 800 ml -300 ml -350 ml Physical Exam General: Alert, Oriented X3, Cooperative, No acute distress Heart: Regular rate, No murmurs Lungs: Clear Abdomen: Normal bowel sounds, Soft, No tenderness, No hepatosplenomegaly, No masses Extremities: No clubbing, No cyanosis, No edema, Normal pulses, No tenderness/swelling, Other (bilateral hallux amputations) Skin: No rashes, No breakdown, No significant lesion Labs Labs: Laboratory Tests Test 03/15/19 16:52 03/15/19 20:54 03/16/19 06:20 03/16/19 07:28 Glucose (Fingerstick) 126 mg/dL (70-99) 188 mg/dL (70-99) 103 mg/dL (70-99) White Blood Count 5.4 x10^3/uL (4.0-11.0) Red Blood Count 2.79 x10^6/uL (3.50-5.40) Hemoglobin 8.4 g/dL (12.0-15.5) Hematocrit 24.7 % (36.0-47.0) Mean Corpuscular Volume 89 fL (79-100) Mean Corpuscular Hemoglobin 30 pg (25-35) Mean Corpuscular Hemoglobin Concent 34 g/dL (31-37) Red Cell Distribution Width 14.6 % (11.5-14.5) Platelet Count 160 x10^3/uL (140-400) Neutrophils (%) (Auto) 74 % (31-73) Lymphocytes (%) (Auto) 12 % (24-48) Monocytes (%) (Auto) 9 % (0-9) Eosinophils (%) (Auto) 4 % (0-3) Basophils (%) (Auto) 1 % (0-3) Neutrophils # (Auto) 4.0 x10^3/uL (1.8-7.7) Lymphocytes # (Auto) 0.7 x10^3/uL (1.0-4.8) Monocytes # (Auto) 0.5 x10^3/uL (0.0-1.1) Eosinophils # (Auto) 0.2 x10^3/uL (0.0-0.7) Basophils # (Auto) 0.0 x10^3/uL (0.0-0.2) Sodium Level 145 mmol/L (136-145) Potassium Level 3.9 mmol/L (3.5-5.1) Chloride Level 113 mmol/L (98-107) Carbon Dioxide Level 22 mmol/L (21-32) Anion Gap 10 (6-14) Blood Urea Nitrogen 8 mg/dL (7-20) Creatinine 0.9 mg/dL (0.6-1.0) Estimated GFR (Cockcroft-Gault) 78.7 Glucose Level 107 mg/dL (70-99) Calcium Level 8.9 mg/dL (8.5-10.1) Test 03/16/19 11:17 Glucose (Fingerstick) 183 mg/dL (70-99) Review of Systems Review of Systems: No headache No acute chest pain No fever/chills Assessment and Plan Assessmemt and Plan Problems Medical Problems: (1) Acute kidney injury superimposed on CKD Status: Acute (2) Blood loss anemia Status: Acute (3) Diverticulosis Status: Chronic (4) DM2 (diabetes mellitus, type 2) Status: Chronic (5) HLD (hyperlipidemia) Status: Chronic (6) HTN (hypertension) Status: Chronic (7) Lower GI bleed Status: Acute Assessment: Lower GI bleed (likely diverticulosis) Anemia Breast cancer w/ lumpectomy and radiation (no chemo) 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 Medications: Current Medications Medications (Trade) Dose Ordered Sig/Jeb Route PRN Reason Start Time Stop Time Status Last Admin Dose Admin Pantoprazole Sodium (Protonix) 40 mg DAILYAC PO 03/16/19 07:30 03/16/19 08:00 SABINA CH III DO Mar 16, 2019 13:18
[2019-03-16 15:00] VITALS: BP 160/73
--- NOTE | 2019-03-16 15:57 | PDOC ---
GI PROGRESS NOTES Date Date/Time DATE: 03/16/19 TIME: 15:55 Subjective Subjective Feeling well, tolerating diet, no further bleeding Objective Vitals Vital Signs Date Time Temp Pulse Resp B/P (MAP) Pulse Ox O2 Delivery O2 Flow Rate FiO2 03/16/19 15:00 98.6 72 18 160/73 (102) 97 Room Air 98.6 03/16/19 13:44 73 146/71 03/16/19 11:00 98.7 73 18 146/71 (96) 94 Room Air 98.7 03/16/19 08:00 77 170/76 03/16/19 08:00 77 170/76 03/16/19 08:00 77 170/76 03/16/19 07:50 Room Air 03/16/19 07:00 98.6 71 18 170/76 (107) 96 Room Air 98.6 03/16/19 03:38 98.4 77 18 163/68 (99) 97 Room Air 98.4 03/15/19 23:57 98.2 76 18 151/64 (93) 95 Room Air 98.2 03/15/19 21:02 79 167/74 03/15/19 20:00 Room Air 03/15/19 19:55 98.6 65 18 168/72 (104) 98 Room Air 98.6 03/15/19 16:05 79 167/74 Labs Labs Laboratory Tests Test 03/15/19 16:52 03/15/19 20:54 03/16/19 06:20 03/16/19 07:28 Glucose (Fingerstick) 126 mg/dL (70-99) 188 mg/dL (70-99) 103 mg/dL (70-99) White Blood Count 5.4 x10^3/uL (4.0-11.0) Red Blood Count 2.79 x10^6/uL (3.50-5.40) Hemoglobin 8.4 g/dL (12.0-15.5) Hematocrit 24.7 % (36.0-47.0) Mean Corpuscular Volume 89 fL (79-100) Mean Corpuscular Hemoglobin 30 pg (25-35) Mean Corpuscular Hemoglobin Concent 34 g/dL (31-37) Red Cell Distribution Width 14.6 % (11.5-14.5) Platelet Count 160 x10^3/uL (140-400) Neutrophils (%) (Auto) 74 % (31-73) Lymphocytes (%) (Auto) 12 % (24-48) Monocytes (%) (Auto) 9 % (0-9) Eosinophils (%) (Auto) 4 % (0-3) Basophils (%) (Auto) 1 % (0-3) Neutrophils # (Auto) 4.0 x10^3/uL (1.8-7.7) Lymphocytes # (Auto) 0.7 x10^3/uL (1.0-4.8) Monocytes # (Auto) 0.5 x10^3/uL (0.0-1.1) Eosinophils # (Auto) 0.2 x10^3/uL (0.0-0.7) Basophils # (Auto) 0.0 x10^3/uL (0.0-0.2) Sodium Level 145 mmol/L (136-145) Potassium Level 3.9 mmol/L (3.5-5.1) Chloride Level 113 mmol/L (98-107) Carbon Dioxide Level 22 mmol/L (21-32) Anion Gap 10 (6-14) Blood Urea Nitrogen 8 mg/dL (7-20) Creatinine 0.9 mg/dL (0.6-1.0) Estimated GFR (Cockcroft-Gault) 78.7 Glucose Level 107 mg/dL (70-99) Calcium Level 8.9 mg/dL (8.5-10.1) Test 03/16/19 11:17 Glucose (Fingerstick) 183 mg/dL (70-99) Physical Exam Physical Exam chest- clear abd - soft non tender Assessment Assessment Lower GI bleed- consistent with diverticular bleeding- non resolved and Hgb trending up Plan Plan Advance to ADA diet OK to d/c from GI point of view- OK to return to work and activities as well recommend oral iron and recheck Hgb with PCP inn 2 weeks ROBERT SEGURA MD Mar 16, 2019 15:57
--- NOTE | 2019-03-16 16:37 | NUR ---
PATIENTS IV REMOVED AND TELE MONITOR OFF. DISCUSSED DISCHARGE INSTRUCTIONS WITH PATIENT. PATIENT INFORMED TO FOLLOW UP WITH PCP IN 1-2 WEEKS AND GI IN [address] MCGEE NUMBER. PATIENT STABLE AT TIME OF DISCHARGE WITH NO COMPLAINTS. PATIENT ESCORTED TO HUSBANDS VEHICLE PER WHEELCHAIR BY FLOWER PICKER. PATIENT HAD NO QUESTIONS AT TIME OF DISCHARGE.
== END 2019-03-16 16:39 | disposition home or self-care (01) | DRG 377 ==
LOC: ER 01:29 → 2 SOUTH 03:32 → ER 04:20
PROVIDERS: ADMIT Internal Medicine; ATTEND Internal Medicine
PROC: 30233N1 Transfusion of Nonautologous Red Blood Cells into Peripheral Vein, Percutaneous Approach (ICD-10-PCS; principal; 2019-03-16)
DX: K57.31 Diverticulosis of large intestine without perforation or abscess with bleeding (principal); N17.0 Acute kidney failure with tubular necrosis; D62 Acute posthemorrhagic anemia; I13.0 Hypertensive heart and chronic kidney disease with heart failure and stage 1 through stage 4 chronic kidney disease, or unspecified chronic kidney disease; C50.919 Malignant neoplasm of unspecified site of unspecified female breast; D57.3 Sickle-cell trait; D69.6 Thrombocytopenia, unspecified; E11.22 Type 2 diabetes mellitus with diabetic chronic kidney disease; E11.42 Type 2 diabetes mellitus with diabetic polyneuropathy; E78.00 Pure hypercholesterolemia, unspecified; E78.5 Hyperlipidemia, unspecified; F80.81 Childhood onset fluency disorder; G47.30 Sleep apnea, unspecified; I50.9 Heart failure, unspecified; J45.909 Unspecified asthma, uncomplicated; N18.9 Chronic kidney disease, unspecified; K21.9 Gastro-esophageal reflux disease without esophagitis; K31.7 Polyp of stomach and duodenum; K44.9 Diaphragmatic hernia without obstruction or gangrene; Z79.811 Long term (current) use of aromatase inhibitors; Z82.49 Family history of ischemic heart disease and other diseases of the circulatory system; Z85.3 Personal history of malignant neoplasm of breast; Z86.010 Personal history of colon polyps; Z83.3 Family history of diabetes mellitus; Z86.14 Personal history of Methicillin resistant Staphylococcus aureus infection; Z86.73 Personal history of transient ischemic attack (TIA), and cerebral infarction without residual deficits; Z89.411 Acquired absence of right great toe; Z90.49 Acquired absence of other specified parts of digestive tract; Z90.710 Acquired absence of both cervix and uterus; Z87.891 Personal history of nicotine dependence; Z88.0 Allergy status to penicillin; Z88.2 Allergy status to sulfonamides; Z88.8 Allergy status to other drugs, medicaments and biological substances; Z91.040 Latex allergy status
CPT/HCPCS: 36415; 74176; 78278; 80048; 80053; 82274; 82728; 82962; 83540; 83550; 85014; 85018; 85025; 85027; 85610; 85730; 86850; 86900; 86901; 86920; 93005; 94760; 96374; A9560; C9113; J1815; J7030; J7040; P9016; Q9966; 97116; 97535; 99285-25

== ENCOUNTER → 2019-08-27 | Outpatient (CLI) | payer OTHER ==
[~2019-08-27] MED LIST changes: +OMEP40CA45 PO; -OMEP40CA5 PO
--- NOTE | 2019-08-27 13:01 | RAD ---
EXAM: Right lower extremity venous Doppler sonogram. HISTORY: Pain and swelling. TECHNIQUE: Chavez scale and color Doppler sonographic evaluation of the right lower extremity veins with spectral waveform analysis was performed. FINDINGS: There is normal color flow, normal compressibility and there are normal spectral waveforms in the common femoral, superficial femoral, popliteal, posterior tibial and greater saphenous veins. IMPRESSION: No Doppler evidence of lower extremity deep venous thrombosis. Electronically signed by: Yaz Carbone MD (08/27/2019 12:58 PM) [place] [id number]
== END | disposition home or self-care (01) ==
LOC: US 11:57
PROVIDERS: ATTEND Internal Medicine Hematology & Oncology
DX: M79.604 Pain in right leg (principal)
CPT/HCPCS: 93971

== ENCOUNTER → 2022-01-05 | Outpatient (CLI) | payer BC ==
[~2022-01-05] MED LIST changes: +AMLO-186 PO; -AMLO5TAB10 PO; -CALC600T4 PO; +CALC600T60 PO; +CYCL10TA19 PO; -CYCL10TA2 PO; +IRBE300T23 PO; -IRBE300T3 PO; -ISOS30TA4 PO; +ISOS30TA68 PO; -LISI-334 PO; +LISI20TA18 PO; -OMEP40CA45 PO; +OMEP40CA7 PO
== END ==
LOC: LAB 10:12
PROVIDERS: ATTEND Podiatrist
DX: M76.71 Peroneal tendinitis, right leg (principal)
CPT/HCPCS: 36415; 82306; 82310